=== PATIENT | male | born 1975 | race Caucasian/White ===

== ENCOUNTER 2020-12-17 11:32 | Inpatient (IN) ==
[2020-12-17] MEDS ORDERED: 0.9 % Sodium Chloride 1,000 ML IVC ONE (12:05)
[2020-12-17] MEDS ORDERED: Ipratropium/Albuterol Neb 3 ML IH ONE (12:10)
[2020-12-17] MEDS ORDERED: Ondansetron 4 MG/2 ML VIAL IVP ONE (12:10)
[2020-12-17] MEDS ORDERED: Acetaminophen 325 MG TABLET PO ONE (12:26)
[2020-12-17 12:52] LABS: Hematocrit 43.7 % (37.5-50.1); Hemoglobin 14.4 g/dL (12.9-16.9); Lymphocytes # 0.7 K/mcL (0.6-4.6); Mean Corpuscular Hemoglobin 27.1 pg (28.0-33.3); Mean Corpuscular Volume 82.3 fL (83.0-100.0); Mean Platelet Volume 10.7 fL (9.4-12.4); Platelet Count 159 K/mcL (140-400); Red Blood Count 5.31 M/mcL (4.19-5.50); Red Cell Distribution Width 12.6 % (11.5-14.5); White Blood Count 5.9 K/mcL (4.3-11.1)
[2020-12-17 13:04] LABS: INR 1.3; Prothrombin Time 14.8 Seconds (9.4-12.1)
[2020-12-17 13:07] LABS: Activated Partial Thrombo Time 33.1 Seconds (26.0-36.0)
[2020-12-17 13:10] LABS: Troponin I 0.04 ng/mL (< 0.04)
[2020-12-17 13:15] LABS: Alanine Aminotransferase 32 Units/L (7-52); Albumin 3.5 g/dL (3.5-5.7); Albumin/Globulin Ratio 0.9 (1.1-2.2); Alkaline Phosphatase 53 Units/L (34-104); Aspartate Amino Transferase 43 Units/L (13-39); BUN/Creatinine Ratio 18 (6-26); Bilirubin,Direct 0.3 mg/dL (0.0-0.2); Bilirubin,Indirect 0.6 mg/dL (0.0-1.0); Bilirubin,Total 0.9 mg/dL (0.3-1.0); Blood Urea Nitrogen 19 mg/dL (6-20); Calcium 8.3 mg/dL (8.6-10.3); Carbon Dioxide 23 mEq/L (23-29); Chloride 97 mEq/L (98-107); Globulin 3.8 g/dL (2.4-3.5); Glucose 288 mg/dL (70-105); Lipase 7 Units/L (11-82); Magnesium 2.3 mg/dL (1.6-2.6); Osmolality,Calculated 287 (280-300); Phosphorous 2.6 mg/dL (2.7-4.5); Potassium 4.5 mEq/L (3.5-5.1); Sodium 132 mEq/L (136-145); Total Protein 7.3 g/dL (6.4-8.9); eGFR For African Americans > 60 (> 60); eGFR For Non-African Americans > 60 (> 60)
[2020-12-17] MEDS ORDERED: Isovue-370 500 ML BOTTLE IVP ONE (13:21)
[2020-12-17 13:29] LABS: Monocytes # 0.1 K/mcL (0.0-1.3); Neutrophils # 5.1 K/mcL (1.6-8.9); Platelet Estimate Normal (Normal); Reactive Lymphocytes Present (Not Present)
[2020-12-17 13:32] LABS: Bilirubin,Urine Negative (Negative); Blood,Urine Trace (Negative); Clarity,Urine Clear (Clear); Color,Urine Yellow (Yellow); Glucose,Urine (UA) >=1000 mg/dL (Normal); Granular Casts,Urine Few per lpf (None Seen); Ketones,Urine 60 mg/dL (Negative); Leukocyte Esterase,Urine Negative (Negative); Mucus,Urine Few per lpf (None-Few); Nitrite,Urine Negative (Negative); Protein,Urine 100 mg/dL (Neg-Trace); RBC,Urine 0-3 per hpf (0-3); Specific Gravity,Urine > 1.030 (1.010-1.025); Squamous Epithelial Cell,Urine Few per hpf (None-Few); WBC,Urine 0-3 per hpf (0-3)
[2020-12-17 13:49] LABS: C-Reactive Protein 182 mg/L (Less than 10)
[2020-12-17] MEDS ORDERED: Naloxone 0.4 MG/ML INJ IVP PRN (14:03)
[2020-12-17] MEDS ORDERED: Acetaminophen 325 MG TABLET PO PRN (14:03)
[2020-12-17] MEDS ORDERED: D5% in Water 1,000 ML IVC PRN (15:09)
[2020-12-17] MEDS ORDERED: Dextrose Gel 15 GM/37.5 ML TUBE PO PRN ×2 (15:09)
[2020-12-17] MEDS ORDERED: Remdesivir 200 MG in 0.9 % Sodium Chloride 100 ML IVPB ONE (15:10)
[2020-12-17 16:07] LABS: Estimated Average Glucose 260 mg/dl; Hemoglobin A1C 10.7 %
[2020-12-17] MEDS: Ipratropium 1 PUFF INHALER IH SCH ×2 (16:30→20:50)
[2020-12-17] MEDS: Insulin LISPRO 300 UNITS/3 ML VIAL SUBQ SCH (17:33)
[2020-12-17 20:00] LABS: C-Reactive Protein 201 mg/L (Less than 10); Lactate Dehydrogenase 467 Units/L (140-271); Troponin I < 0.03 ng/mL (< 0.04)
[2020-12-17 20:13] LABS: Ferritin 1369 ng/mL (20-250)
[2020-12-17] MEDS ORDERED: TOCILIZUMAB IVPB ONE (21:00)
[2020-12-17] MEDS ORDERED: SODIUM CHLORIDE 0.9% IVPB ONE (21:00)
[2020-12-17] MEDS ORDERED: Insulin DETEMIR 100 UNIT/ML X5UNITS SUBQ SCH (21:00)
[2020-12-18 02:37] LABS: Basophils % 0.7 %; Hematocrit 41.1 % (37.5-50.1); Immature Granulocytes % 4.1 % (0-4); Lymphocytes # 0.5 K/mcL (0.6-4.6); Mean Corpuscular HGB Conc 34.1 g/dL (31.6-35.5); Mean Corpuscular Hemoglobin 27.8 pg (28.0-33.3); Mean Corpuscular Volume 81.5 fL (83.0-100.0); Mean Platelet Volume 10.3 fL (9.4-12.4); Monocytes # 0.3 K/mcL (0.0-1.3); Monocytes % 6.3 %; Neutrophils # 3.2 K/mcL (1.6-8.9); Platelet Count 156 K/mcL (140-400); Red Blood Count 5.04 M/mcL (4.19-5.50); Red Cell Distribution Width 12.5 % (11.5-14.5); Segmented Neutrophils % 76.9 %; White Blood Count 4.1 K/mcL (4.3-11.1)
[2020-12-18 02:45] LABS: Magnesium 2.5 mg/dL (1.6-2.6); Phosphorous 2.8 mg/dL (2.7-4.5)
[2020-12-18 02:47] LABS: Albumin 3.2 g/dL (3.5-5.7); Albumin/Globulin Ratio 0.8 (1.1-2.2); Bilirubin,Direct 0.2 mg/dL (0.0-0.2); Bilirubin,Indirect 0.4 mg/dL (0.0-1.0); Bilirubin,Total 0.6 mg/dL (0.3-1.0); Globulin 3.9 g/dL (2.4-3.5); Total Protein 7.1 g/dL (6.4-8.9)
[2020-12-18 02:58] LABS: Platelet Estimate Normal (Normal); Reactive Lymphocytes Present (Not Present)
[2020-12-18] MEDS: Ipratropium 1 PUFF INHALER IH SCH ×4 (04:43→22:20)
[2020-12-18] MEDS: Dexamethasone Sodium Phos/PF 10 MG/ML VIAL IVP SCH (08:27)
[2020-12-18] MEDS: Insulin LISPRO 300 UNITS/3 ML VIAL SUBQ SCH ×3 (08:52→18:03)
[2020-12-18] MEDS: Insulin DETEMIR 100 UNIT/ML X5UNITS SUBQ SCH ×2 (08:54→19:59)
[2020-12-18] MEDS ORDERED: Dexamethasone Sodium Phos/PF 10 MG/ML VIAL IVP SCH (09:00)
[2020-12-18 13:08] LABS: BUN/Creatinine Ratio 27 (6-26); Blood Urea Nitrogen 22 mg/dL (6-20); Calcium 8.6 mg/dL (8.6-10.3); Carbon Dioxide 23 mEq/L (23-29); Chloride 104 mEq/L (98-107); Glucose 290 mg/dL (70-105); Osmolality,Calculated 300 (280-300); Potassium 4.1 mEq/L (3.5-5.1); Sodium 138 mEq/L (136-145); eGFR For African Americans > 60 (> 60); eGFR For Non-African Americans > 60 (> 60)
[2020-12-18] MEDS ORDERED: Gadolinium Contrast Agent (WT Based) IV PRN (13:56)
[2020-12-18] MEDS: *HR* Enoxaparin 40 MG/0.4 ML SYRINGE SQ SCH (15:12)
[2020-12-18] MEDS: Remdesivir 100 MG in 0.9 % Sodium Chloride 100 ML IVPB SCH (15:13)
[2020-12-19] MEDS: Ipratropium 1 PUFF INHALER IH SCH ×4 (03:56→21:30)
[2020-12-19] MEDS: *HR* Enoxaparin 40 MG/0.4 ML SYRINGE SQ SCH (05:34)
[2020-12-19 06:47] LABS: Albumin 3.3 g/dL (3.5-5.7); BUN/Creatinine Ratio 27 (6-26); Bilirubin,Direct 0.2 mg/dL (0.0-0.2); Bilirubin,Indirect 0.3 mg/dL (0.0-1.0); Bilirubin,Total 0.5 mg/dL (0.3-1.0); Blood Urea Nitrogen 24 mg/dL (6-20); Calcium 8.3 mg/dL (8.6-10.3); Carbon Dioxide 26 mEq/L (23-29); Chloride 104 mEq/L (98-107); Globulin 3.4 g/dL (2.4-3.5); Glucose 347 mg/dL (70-105); Osmolality,Calculated 304 (280-300); Potassium 4.1 mEq/L (3.5-5.1); Sodium 138 mEq/L (136-145); Total Protein 6.7 g/dL (6.4-8.9); eGFR For African Americans > 60 (> 60); eGFR For Non-African Americans > 60 (> 60)
[2020-12-19] MEDS: Dexamethasone Sodium Phos/PF 10 MG/ML VIAL IVP SCH (09:19)
[2020-12-19] MEDS: Insulin DETEMIR 100 UNIT/ML X5UNITS SUBQ SCH ×2 (09:22→20:04)
[2020-12-19] MEDS: Insulin LISPRO 300 UNITS/3 ML VIAL SUBQ SCH ×2 (09:22→12:50)
[2020-12-19] MEDS: Remdesivir 100 MG in 0.9 % Sodium Chloride 100 ML IVPB SCH (15:45)
[2020-12-20] MEDS: Ipratropium 1 PUFF INHALER IH SCH ×4 (03:33→20:23)
[2020-12-20] MEDS: Insulin LISPRO 300 UNITS/3 ML VIAL SUBQ SCH ×4 (03:38→17:39)
[2020-12-20 04:03] LABS: BUN/Creatinine Ratio 30 (6-26); Blood Urea Nitrogen 25 mg/dL (6-20); Calcium 8.5 mg/dL (8.6-10.3); Carbon Dioxide 24 mEq/L (23-29); Chloride 107 mEq/L (98-107); Glucose 293 mg/dL (70-105); Osmolality,Calculated 303 (280-300); Potassium 3.9 mEq/L (3.5-5.1); Sodium 139 mEq/L (136-145); eGFR For African Americans > 60 (> 60); eGFR For Non-African Americans > 60 (> 60)
[2020-12-20] MEDS: *HR* Enoxaparin 40 MG/0.4 ML SYRINGE SQ SCH (05:52)
[2020-12-20 08:04] LABS: Albumin 3.2 g/dL (3.5-5.7); Bilirubin,Direct 0.1 mg/dL (0.0-0.2); Bilirubin,Indirect 0.5 mg/dL (0.0-1.0); Bilirubin,Total 0.6 mg/dL (0.3-1.0); Globulin 3.1 g/dL (2.4-3.5); Total Protein 6.3 g/dL (6.4-8.9)
[2020-12-20] MEDS: Dexamethasone Sodium Phos/PF 10 MG/ML VIAL IVP SCH (08:15)
[2020-12-20] MEDS: Insulin DETEMIR 100 UNIT/ML X5UNITS SUBQ SCH ×2 (08:15→21:11)
[2020-12-20] MEDS: *HR* LORazepam 2 MG/ML VIAL IVP PRN ×2 (13:13→19:52)
[2020-12-20] MEDS: Remdesivir 100 MG in 0.9 % Sodium Chloride 100 ML IVPB SCH (15:46)
[2020-12-20] MEDS ORDERED: *HR* Heparin 5,000 UNIT/ML VIAL IVP PRN ×2 (16:47)
[2020-12-20] MEDS ORDERED: *HR* Heparin 5,000 UNIT/ML VIAL IVP ONE (16:47)
[2020-12-20 17:54] LABS: Hemoglobin 14.6 g/dL (12.9-16.9); Mean Corpuscular Hemoglobin 27.7 pg (28.0-33.3); Mean Corpuscular Volume 81.4 fL (83.0-100.0); Mean Platelet Volume 9.8 fL (9.4-12.4); Platelet Count 126 K/mcL (140-400); Red Blood Count 5.28 M/mcL (4.19-5.50); Red Cell Distribution Width 12.5 % (11.5-14.5)
[2020-12-20 18:03] LABS: Heparin anti-factor XA UFH 0.07 IU/mL (0.30-0.70); INR 1.4; Prothrombin Time 15.1 Seconds (9.4-12.1)
[2020-12-20] MEDS: Heparin 25,000UNIT/250ML 1/2NS 25,000 UNIT/250 ML IV.SOLN IVC SCH (19:54)
[2020-12-21] MEDS: Insulin LISPRO 300 UNITS/3 ML VIAL SUBQ SCH ×4 (00:04→16:18)
[2020-12-21 03:24] LABS: BUN/Creatinine Ratio 25 (6-26); Blood Urea Nitrogen 21 mg/dL (6-20); Calcium 8.3 mg/dL (8.6-10.3); Carbon Dioxide 25 mEq/L (23-29); Chloride 106 mEq/L (98-107); Glucose 100 mg/dL (70-105); Osmolality,Calculated 295 (280-300); Potassium 3.5 mEq/L (3.5-5.1); Sodium 141 mEq/L (136-145); eGFR For African Americans > 60 (> 60); eGFR For Non-African Americans > 60 (> 60)
[2020-12-21 03:25] LABS: Albumin 3.1 g/dL (3.5-5.7); Albumin/Globulin Ratio 0.9 (1.1-2.2); Bilirubin,Direct 0.2 mg/dL (0.0-0.2); Bilirubin,Indirect 0.6 mg/dL (0.0-1.0); Bilirubin,Total 0.8 mg/dL (0.3-1.0); Globulin 3.4 g/dL (2.4-3.5); Total Protein 6.5 g/dL (6.4-8.9)
[2020-12-21] MEDS: Ipratropium 1 PUFF INHALER IH SCH ×4 (03:47→19:53)
[2020-12-21] MEDS ORDERED: Isovue-370 500 ML BOTTLE IVP ONE (07:44)
[2020-12-21] MEDS: Dexamethasone Sodium Phos/PF 10 MG/ML VIAL IVP SCH (08:05)
[2020-12-21] MEDS: Insulin DETEMIR 100 UNIT/ML X5UNITS SUBQ SCH ×2 (08:06→20:16)
[2020-12-21] MEDS: Ondansetron 4 MG/2 ML VIAL IVP PRN (10:05)
[2020-12-21] MEDS: *HR* LORazepam 2 MG/ML VIAL IVP PRN ×2 (10:24→20:16)
[2020-12-21] MEDS ORDERED: Perflutren Lipid Microsphere 1.3 ML in 0.9 % Sodium Chloride 8.7 ML IVP PRN (14:29)
[2020-12-21] MEDS: Remdesivir 100 MG in 0.9 % Sodium Chloride 100 ML IVPB SCH (15:25)
[2020-12-21 16:12] LABS: Troponin I 0.03 ng/mL (< 0.04)
[2020-12-21] MEDS: Heparin 25,000UNIT/250ML 1/2NS 25,000 UNIT/250 ML IV.SOLN IVC SCH (18:32)
[2020-12-22] MEDS: *HR* LORazepam 2 MG/ML VIAL IVP PRN (03:38)
[2020-12-22] MEDS: Ipratropium 1 PUFF INHALER IH SCH ×4 (03:40→23:00)
[2020-12-22 05:01] LABS: BUN/Creatinine Ratio 26 (6-26); Blood Urea Nitrogen 20 mg/dL (6-20); Calcium 8.2 mg/dL (8.6-10.3); Carbon Dioxide 25 mEq/L (23-29); Chloride 105 mEq/L (98-107); Glucose 81 mg/dL (70-105); Osmolality,Calculated 290 (280-300); Potassium 4.1 mEq/L (3.5-5.1); Sodium 139 mEq/L (136-145); eGFR For African Americans > 60 (> 60); eGFR For Non-African Americans > 60 (> 60)
[2020-12-22 05:05] LABS: Albumin 3.1 g/dL (3.5-5.7); Bilirubin,Direct 0.2 mg/dL (0.0-0.2); Bilirubin,Indirect 0.5 mg/dL (0.0-1.0); Bilirubin,Total 0.7 mg/dL (0.3-1.0); Globulin 3.1 g/dL (2.4-3.5); Total Protein 6.2 g/dL (6.4-8.9)
[2020-12-22 06:48] LABS: Basophils # 0.1 K/mcL (0.0-0.2); Basophils % 0.5 %; Eosinophils # 0.3 K/mcL (0.0-0.6); Eosinophils % 2.2 %; Hemoglobin 15.8 g/dL (12.9-16.9); Immature Granulocytes % 2.2 % (0-4); Lymphocytes # 0.7 K/mcL (0.6-4.6); Lymphocytes % 5.5 %; Mean Corpuscular HGB Conc 33.6 g/dL (31.6-35.5); Mean Corpuscular Hemoglobin 27.5 pg (28.0-33.3); Mean Corpuscular Volume 81.9 fL (83.0-100.0); Mean Platelet Volume 10.6 fL (9.4-12.4); Monocytes # 0.5 K/mcL (0.0-1.3); Monocytes % 4.1 %; Platelet Count 121 K/mcL (140-400); Red Blood Count 5.74 M/mcL (4.19-5.50); Red Cell Distribution Width 12.9 % (11.5-14.5); Segmented Neutrophils % 85.5 %; White Blood Count 12.8 K/mcL (4.3-11.1)
[2020-12-22] MEDS: Insulin LISPRO 300 UNITS/3 ML VIAL SUBQ SCH ×4 (07:59→16:48)
[2020-12-22] MEDS: Insulin DETEMIR 100 UNIT/ML X5UNITS SUBQ SCH ×2 (08:01→21:37)
[2020-12-22] MEDS: Dexamethasone Sodium Phos/PF 10 MG/ML VIAL IVP SCH (08:01)
[2020-12-22] MEDS: Heparin 25,000UNIT/250ML 1/2NS 25,000 UNIT/250 ML IV.SOLN IVC SCH (15:44)
[2020-12-22] MEDS: Ondansetron 4 MG/2 ML VIAL IVP PRN ×2 (17:30→22:03)
[2020-12-23] MEDS: Insulin LISPRO 300 UNITS/3 ML VIAL SUBQ SCH ×5 (00:06→23:29)
[2020-12-23] MEDS: *HR* Dextrose 50 % in Water (Syg) 50 ML SYRINGE IVP PRN (00:15)
[2020-12-23] MEDS: Ipratropium 1 PUFF INHALER IH SCH ×4 (03:48→20:45)
[2020-12-23 05:06] LABS: Basophils % 0.5 %; Immature Granulocytes % 2.7 % (0-4); Mean Corpuscular HGB Conc 33.6 g/dL (31.6-35.5); Mean Corpuscular Hemoglobin 27.5 pg (28.0-33.3); Red Cell Distribution Width 12.9 % (11.5-14.5)
[2020-12-23 05:08] LABS: Basophils # 0.1 K/mcL (0.0-0.2); Eosinophils # 0.4 K/mcL (0.0-0.6); Eosinophils % 2.5 %; Hematocrit 45.6 % (37.5-50.1); Hemoglobin 15.3 g/dL (12.9-16.9); Immature Platelets 7.2 % (1.1-6.1); Lymphocytes # 0.6 K/mcL (0.6-4.6); Lymphocytes % 4.5 %; Mean Corpuscular Volume 81.9 fL (83.0-100.0); Mean Platelet Volume 10.6 fL (9.4-12.4); Monocytes # 0.5 K/mcL (0.0-1.3); Monocytes % 3.6 %; Platelet Count 126 K/mcL (140-400); Red Blood Count 5.57 M/mcL (4.19-5.50); Segmented Neutrophils % 86.2 %; White Blood Count 13.9 K/mcL (4.3-11.1)
[2020-12-23 05:24] LABS: Alanine Aminotransferase 17 Units/L (7-52); Alkaline Phosphatase 106 Units/L (34-104); Aspartate Amino Transferase 28 Units/L (13-39); BUN/Creatinine Ratio 27 (6-26); Bilirubin,Total 0.8 mg/dL (0.3-1.0); Blood Urea Nitrogen 19 mg/dL (6-20); Calcium 8.1 mg/dL (8.6-10.3); Carbon Dioxide 26 mEq/L (23-29); Chloride 107 mEq/L (98-107); Globulin 2.9 g/dL (2.4-3.5); Glucose 79 mg/dL (70-105); Magnesium 2.1 mg/dL (1.6-2.6); Osmolality,Calculated 289 (280-300); Phosphorous 3.2 mg/dL (2.7-4.5); Potassium 4.1 mEq/L (3.5-5.1); Sodium 139 mEq/L (136-145); Total Protein 5.9 g/dL (6.4-8.9); eGFR For African Americans > 60 (> 60); eGFR For Non-African Americans > 60 (> 60)
[2020-12-23] MEDS: *HR* LORazepam 2 MG/ML VIAL IVP PRN (08:30)
[2020-12-23] MEDS: Dexamethasone Sodium Phos/PF 10 MG/ML VIAL IVP SCH (08:31)
[2020-12-23] MEDS: Insulin DETEMIR 100 UNIT/ML X5UNITS SUBQ SCH ×2 (09:16→20:19)
[2020-12-23] MEDS: Dexmedetomidine HCl 400 MCG/100 ML MLS IVC SCH ×2 (12:35→20:25)
[2020-12-23] MEDS: Heparin 25,000UNIT/250ML 1/2NS 25,000 UNIT/250 ML IV.SOLN IVC SCH (13:26)
[2020-12-23] MEDS ORDERED: Dexamethasone Sodium Phos/PF 10 MG/ML VIAL IVP ONE (19:42)
[2020-12-24] MEDS: Ipratropium 1 PUFF INHALER IH SCH ×4 (04:05→21:00)
[2020-12-24] MEDS: Insulin LISPRO 300 UNITS/3 ML VIAL SUBQ SCH ×4 (05:20→23:37)
[2020-12-24 06:04] LABS: Basophils # 0.1 K/mcL (0.0-0.2); Basophils % 0.5 %; Eosinophils % 0.2 %; Hematocrit 48.2 % (37.5-50.1); Hemoglobin 15.7 g/dL (12.9-16.9); Immature Granulocytes % 3.3 % (0-4); Lymphocytes # 0.6 K/mcL (0.6-4.6); Lymphocytes % 3.9 %; Mean Corpuscular HGB Conc 32.6 g/dL (31.6-35.5); Mean Platelet Volume 10.5 fL (9.4-12.4); Monocytes # 0.6 K/mcL (0.0-1.3); Monocytes % 3.7 %; Neutrophils # 13.5 K/mcL (1.6-8.9); Platelet Count 136 K/mcL (140-400); Red Blood Count 5.81 M/mcL (4.19-5.50); Red Cell Distribution Width 13.2 % (11.5-14.5); Segmented Neutrophils % 88.4 %; White Blood Count 15.3 K/mcL (4.3-11.1)
[2020-12-24 06:29] LABS: Alanine Aminotransferase 18 Units/L (7-52); Albumin 3.1 g/dL (3.5-5.7); Albumin/Globulin Ratio 1.1 (1.1-2.2); Alkaline Phosphatase 132 Units/L (34-104); Aspartate Amino Transferase 25 Units/L (13-39); BUN/Creatinine Ratio 39 (6-26); Bilirubin,Total 1.1 mg/dL (0.3-1.0); Blood Urea Nitrogen 30 mg/dL (6-20); Calcium 8.4 mg/dL (8.6-10.3); Carbon Dioxide 25 mEq/L (23-29); Chloride 105 mEq/L (98-107); Globulin 2.9 g/dL (2.4-3.5); Glucose 203 mg/dL (70-105); Magnesium 2.4 mg/dL (1.6-2.6); Osmolality,Calculated 302 (280-300); Phosphorous 4.1 mg/dL (2.7-4.5); Sodium 140 mEq/L (136-145); eGFR For African Americans > 60 (> 60); eGFR For Non-African Americans > 60 (> 60)
[2020-12-24] MEDS: Insulin DETEMIR 100 UNIT/ML X5UNITS SUBQ SCH ×2 (07:36→20:41)
[2020-12-24] MEDS: Dexamethasone Sodium Phos/PF 10 MG/ML VIAL IVP SCH (07:37)
[2020-12-24] MEDS: Dexmedetomidine HCl 400 MCG/100 ML MLS IVC SCH ×2 (12:22→22:07)
[2020-12-24] MEDS: Heparin 25,000UNIT/250ML 1/2NS 25,000 UNIT/250 ML IV.SOLN IVC SCH (15:13)
[2020-12-25] MEDS: Dexmedetomidine HCl 400 MCG/100 ML MLS IVC SCH ×6 (03:16→22:51)
[2020-12-25] MEDS: Ipratropium 1 PUFF INHALER IH SCH ×4 (04:09→19:59)
[2020-12-25] MEDS: Insulin LISPRO 300 UNITS/3 ML VIAL SUBQ SCH ×3 (05:19→18:07)
[2020-12-25 06:16] LABS: Basophils # 0.1 K/mcL (0.0-0.2); Basophils % 0.5 %; Eosinophils # 0.2 K/mcL (0.0-0.6); Eosinophils % 1.2 %; Hematocrit 52.7 % (37.5-50.1); Immature Granulocytes % 2.6 % (0-4); Lymphocytes % 5.3 %; Mean Corpuscular HGB Conc 33.8 g/dL (31.6-35.5); Mean Corpuscular Volume 82.9 fL (83.0-100.0); Mean Platelet Volume 11.7 fL (9.4-12.4); Monocytes # 1.1 K/mcL (0.0-1.3); Monocytes % 5.8 %; Neutrophils # 16.4 K/mcL (1.6-8.9); Platelet Count 165 K/mcL (140-400); Red Blood Count 6.36 M/mcL (4.19-5.50); Red Cell Distribution Width 13.6 % (11.5-14.5); Segmented Neutrophils % 84.6 %; White Blood Count 19.4 K/mcL (4.3-11.1)
[2020-12-25 06:22] LABS: Hemoglobin 17.8 g/dL (12.9-16.9)
[2020-12-25 06:40] LABS: Alanine Aminotransferase 18 Units/L (7-52); Albumin 3.3 g/dL (3.5-5.7); Albumin/Globulin Ratio 1.1 (1.1-2.2); Alkaline Phosphatase 157 Units/L (34-104); Aspartate Amino Transferase 26 Units/L (13-39); BUN/Creatinine Ratio 49 (6-26); Bilirubin,Total 1.3 mg/dL (0.3-1.0); Blood Urea Nitrogen 34 mg/dL (6-20); Calcium 8.5 mg/dL (8.6-10.3); Carbon Dioxide 25 mEq/L (23-29); Chloride 106 mEq/L (98-107); Glucose 105 mg/dL (70-105); Magnesium 2.3 mg/dL (1.6-2.6); Osmolality,Calculated 296 (280-300); Phosphorous 4.1 mg/dL (2.7-4.5); Potassium 4.6 mEq/L (3.5-5.1); Sodium 139 mEq/L (136-145); Total Protein 6.3 g/dL (6.4-8.9); eGFR For African Americans > 60 (> 60); eGFR For Non-African Americans > 60 (> 60)
[2020-12-25] MEDS: Insulin DETEMIR 100 UNIT/ML X5UNITS SUBQ SCH ×2 (07:55→21:33)
[2020-12-25] MEDS: Dexamethasone Sodium Phos/PF 10 MG/ML VIAL IVP SCH (07:58)
[2020-12-25] MEDS: Heparin 25,000UNIT/250ML 1/2NS 25,000 UNIT/250 ML IV.SOLN IVC SCH (11:05)
[2020-12-26] MEDS: Insulin LISPRO 300 UNITS/3 ML VIAL SUBQ SCH ×4 (00:22→17:36)
[2020-12-26] MEDS: Dexmedetomidine HCl 400 MCG/100 ML MLS IVC SCH ×4 (03:27→22:25)
[2020-12-26] MEDS: Ipratropium 1 PUFF INHALER IH SCH ×4 (03:39→20:07)
[2020-12-26] MEDS: Heparin 25,000UNIT/250ML 1/2NS 25,000 UNIT/250 ML IV.SOLN IVC SCH ×2 (04:04→11:12)
[2020-12-26 06:03] LABS: Basophils # 0.1 K/mcL (0.0-0.2); Basophils % 0.7 %; Eosinophils # 0.2 K/mcL (0.0-0.6); Hemoglobin 17.6 g/dL (12.9-16.9); Immature Granulocytes % 1.3 % (0-4); Lymphocytes # 1.1 K/mcL (0.6-4.6); Lymphocytes % 5.2 %; Mean Corpuscular HGB Conc 31.3 g/dL (31.6-35.5); Mean Corpuscular Hemoglobin 27.2 pg (28.0-33.3); Mean Corpuscular Volume 86.9 fL (83.0-100.0); Mean Platelet Volume 10.9 fL (9.4-12.4); Monocytes # 1.3 K/mcL (0.0-1.3); Monocytes % 6.4 %; Neutrophils # 17.4 K/mcL (1.6-8.9); Platelet Count 147 K/mcL (140-400); Red Blood Count 6.48 M/mcL (4.19-5.50); Red Cell Distribution Width 13.8 % (11.5-14.5); Segmented Neutrophils % 85.4 %; White Blood Count 20.4 K/mcL (4.3-11.1)
[2020-12-26 06:04] LABS: Hematocrit 56.3 % (37.5-50.1)
[2020-12-26] MEDS: Ondansetron 4 MG/2 ML VIAL IVP PRN (07:40)
[2020-12-26] MEDS: Dexamethasone Sodium Phos/PF 10 MG/ML VIAL IVP SCH (09:44)
[2020-12-26] MEDS: Furosemide 20 MG/2 ML VIAL IVP SCH (09:45)
[2020-12-26] MEDS: Insulin DETEMIR 100 UNIT/ML X5UNITS SUBQ SCH ×2 (09:45→20:06)
[2020-12-26 10:35] LABS: Alanine Aminotransferase 16 Units/L (7-52); Albumin 2.9 g/dL (3.5-5.7); Alkaline Phosphatase 154 Units/L (34-104); Aspartate Amino Transferase 37 Units/L (13-39); BUN/Creatinine Ratio 52 (6-26); Bilirubin,Total 1.3 mg/dL (0.3-1.0); Blood Urea Nitrogen 39 mg/dL (6-20); Calcium 8.2 mg/dL (8.6-10.3); Carbon Dioxide 14 mEq/L (23-29); Chloride 101 mEq/L (98-107); Glucose 68 mg/dL (70-105); Magnesium 2.4 mg/dL (1.6-2.6); Osmolality,Calculated 280 (280-300); Potassium 4.8 mEq/L (3.5-5.1); Sodium 131 mEq/L (136-145); Total Protein 5.9 g/dL (6.4-8.9); eGFR For African Americans > 60 (> 60); eGFR For Non-African Americans > 60 (> 60)
[2020-12-26] MEDS ORDERED: *HR* Promethazine 25 MG/ML VIAL IM PRN (14:17)
[2020-12-27] MEDS: Insulin LISPRO 300 UNITS/3 ML VIAL SUBQ SCH ×4 (01:38→17:57)
[2020-12-27] MEDS: Dexmedetomidine HCl 400 MCG/100 ML MLS IVC SCH ×4 (02:33→18:46)
[2020-12-27] MEDS: Ipratropium 1 PUFF INHALER IH SCH ×4 (04:02→19:58)
[2020-12-27 05:19] LABS: Alanine Aminotransferase 18 Units/L (7-52); Albumin 3.2 g/dL (3.5-5.7); Albumin/Globulin Ratio 1.1 (1.1-2.2); Alkaline Phosphatase 139 Units/L (34-104); Aspartate Amino Transferase 34 Units/L (13-39); BUN/Creatinine Ratio 56 (6-26); Bilirubin,Total 1.4 mg/dL (0.3-1.0); Blood Urea Nitrogen 43 mg/dL (6-20); Calcium 8.5 mg/dL (8.6-10.3); Carbon Dioxide 25 mEq/L (23-29); Chloride 106 mEq/L (98-107); Globulin 2.8 g/dL (2.4-3.5); Glucose 73 mg/dL (70-105); Magnesium 2.5 mg/dL (1.6-2.6); Osmolality,Calculated 297 (280-300); Phosphorous 4.7 mg/dL (2.7-4.5); Sodium 139 mEq/L (136-145); eGFR For African Americans > 60 (> 60); eGFR For Non-African Americans > 60 (> 60)
[2020-12-27] MEDS: *HR* Dextrose 50 % in Water (Syg) 50 ML SYRINGE IVP PRN (05:50)
[2020-12-27] MEDS: Dexamethasone Sodium Phos/PF 10 MG/ML VIAL IVP SCH (08:26)
[2020-12-27] MEDS: Furosemide 20 MG/2 ML VIAL IVP SCH (08:26)
[2020-12-27] MEDS: Insulin DETEMIR 100 UNIT/ML X5UNITS SUBQ SCH ×2 (08:27→21:13)
[2020-12-27] MEDS: Ondansetron 4 MG/2 ML VIAL IVP PRN (08:28)
[2020-12-27] MEDS: Heparin 25,000UNIT/250ML 1/2NS 25,000 UNIT/250 ML IV.SOLN IVC SCH (09:02)
[2020-12-27] MEDS ORDERED: Metoclopramide 10 MG/2 ML VIAL IVP PRN (09:55)
[2020-12-27] MEDS: *HR* LORazepam 2 MG/ML VIAL IVP PRN (10:54)
[2020-12-28] MEDS: Insulin LISPRO 300 UNITS/3 ML VIAL SUBQ SCH ×4 (00:20→18:24)
[2020-12-28] MEDS: Dexmedetomidine HCl 400 MCG/100 ML MLS IVC SCH ×5 (02:55→21:10)
[2020-12-28] MEDS: Ipratropium 1 PUFF INHALER IH SCH ×5 (03:46→22:21)
[2020-12-28 05:53] LABS: BUN/Creatinine Ratio 57 (6-26); Blood Urea Nitrogen 51 mg/dL (6-20); Calcium 8.5 mg/dL (8.6-10.3); Carbon Dioxide 25 mEq/L (23-29); Chloride 104 mEq/L (98-107); Glucose 196 mg/dL (70-105); Osmolality,Calculated 303 (280-300); Potassium 5.1 mEq/L (3.5-5.1); Sodium 137 mEq/L (136-145); eGFR For African Americans > 60 (> 60); eGFR For Non-African Americans > 60 (> 60)
[2020-12-28] MEDS: Dexamethasone Sodium Phos/PF 10 MG/ML VIAL IVP SCH (08:33)
[2020-12-28] MEDS: Furosemide 20 MG/2 ML VIAL IVP SCH (08:34)
[2020-12-28] MEDS: Insulin DETEMIR 100 UNIT/ML X5UNITS SUBQ SCH ×2 (08:35→22:07)
[2020-12-28 10:38] LABS: Basophils # 0.1 K/mcL (0.0-0.2); Basophils % 0.5 %; Eosinophils # 0.1 K/mcL (0.0-0.6); Eosinophils % 0.3 %; Hemoglobin 17.3 g/dL (12.9-16.9); Lymphocytes # 1.1 K/mcL (0.6-4.6); Lymphocytes % 4.6 %; Mean Corpuscular HGB Conc 31.2 g/dL (31.6-35.5); Mean Corpuscular Volume 86.6 fL (83.0-100.0); Mean Platelet Volume 12.1 fL (9.4-12.4); Monocytes % 3.9 %; Platelet Count 172 K/mcL (140-400); Red Blood Count 6.41 M/mcL (4.19-5.50); Red Cell Distribution Width 14.3 % (11.5-14.5); Segmented Neutrophils % 89.7 %; White Blood Count 24.8 K/mcL (4.3-11.1)
[2020-12-28 11:01] LABS: Hematocrit 55.5 % (37.5-50.1); Neutrophils # 22.3 K/mcL (1.6-8.9)
[2020-12-28] MEDS ORDERED: Lidocaine -MPF 1% 5 ML AMPUL INFILT ONE ×2 (11:09→18:51)
[2020-12-28] MEDS: Heparin 25,000UNIT/250ML 1/2NS 25,000 UNIT/250 ML IV.SOLN IVC SCH (12:21)
[2020-12-28 12:43] LABS: Magnesium 2.6 mg/dL (1.6-2.6); Phosphorous 3.8 mg/dL (2.7-4.5); Triglycerides 375 mg/dL (< 150)
[2020-12-28] MEDS ORDERED: D10% in Water 500 ML IVC PRN ×2 (12:56→18:51)
[2020-12-28] MEDS ORDERED: Isovue-370 500 ML BOTTLE IVP ONE (15:40)
[2020-12-28] MEDS ORDERED: FentaNYL (PF) 1,000 MCG/100 ML IV.SOLN IVC SCH (15:45)
[2020-12-28] MEDS ORDERED: Artificial Tears SOLN 15 ML BOTTLE BOTH EYES PRN ×2 (15:48→18:51)
[2020-12-28] MEDS ORDERED: Artificial Tears SOLN 15 ML BOTTLE BOTH EYES SCH (16:00)
[2020-12-28] MEDS ORDERED: Clinimix E 5%-15% SOLUTION 2,000 ML with MVI, adult with vitamin K 10 ML IVC SCH ×2 (17:00→18:51)
[2020-12-28] MEDS ORDERED: Ampicillin/Sulbactam 3,000 MG in 0.9 % Sodium Chloride Mini Bag 100 ML IVPB SCH (18:00)
[2020-12-28] MEDS ORDERED: *HR* LORazepam 2 MG/ML VIAL IVP PRN (18:51)
[2020-12-28] MEDS ORDERED: Ondansetron 4 MG/2 ML VIAL IVP PRN (18:51)
[2020-12-28] MEDS ORDERED: D5% in Water 1,000 ML IVC PRN (18:51)
[2020-12-28] MEDS ORDERED: Dextrose Gel 15 GM/37.5 ML TUBE PO PRN ×2 (18:51)
[2020-12-28] MEDS ORDERED: Naloxone 0.4 MG/ML INJ IVP PRN (18:51)
[2020-12-28] MEDS ORDERED: Acetaminophen 325 MG TABLET PO PRN (18:51)
[2020-12-28] MEDS ORDERED: Metoclopramide 10 MG/2 ML VIAL IVP PRN (18:51)
[2020-12-28] MEDS ORDERED: *HR* Dextrose 50 % in Water (Syg) 50 ML SYRINGE IVP PRN (18:51)
[2020-12-28] MEDS ORDERED: *HR* Heparin 5,000 UNIT/ML VIAL IVP PRN ×2 (18:51)
[2020-12-28] MEDS ORDERED: *HR* Promethazine 25 MG/ML VIAL IM PRN (18:51)
[2020-12-28] MEDS ORDERED: Heparin 25,000UNIT/250ML 1/2NS 25,000 UNIT/250 ML IV.SOLN IVC SCH (18:51)
[2020-12-28] MEDS: FentaNYL (PF) 1,000 MCG/100 ML IV.SOLN IVC SCH (19:44)
[2020-12-28] MEDS: Artificial Tears SOLN 15 ML BOTTLE BOTH EYES SCH (19:45)
[2020-12-28] MEDS: Chlorhexidine Rinse 15 ML MOUTHWASH MM SCH (19:45)
[2020-12-28] MEDS ORDERED: Chlorhexidine Rinse 15 ML MOUTHWASH MM SCH (21:00)
[2020-12-29] MEDS ORDERED: Insulin LISPRO 300 UNITS/3 ML VIAL SUBQ SCH
[2020-12-29] MEDS: Artificial Tears SOLN 15 ML BOTTLE BOTH EYES SCH ×7 (00:35→19:45)
[2020-12-29] MEDS: Dexmedetomidine HCl 400 MCG/100 ML MLS IVC SCH ×6 (01:30→19:45)
[2020-12-29] MEDS: Ipratropium 1 PUFF INHALER IH SCH ×4 (03:59→21:28)
[2020-12-29 05:22] LABS: BUN/Creatinine Ratio 59 (6-26); Basophils % 0.2 %; Blood Urea Nitrogen 38 mg/dL (6-20); Calcium 8.2 mg/dL (8.6-10.3); Carbon Dioxide 24 mEq/L (23-29); Chloride 103 mEq/L (98-107); Eosinophils % 0.2 %; Glucose 189 mg/dL (70-105); Magnesium 2.4 mg/dL (1.6-2.6); Osmolality,Calculated 294 (280-300); Phosphorous 2.9 mg/dL (2.7-4.5); Potassium 4.4 mEq/L (3.5-5.1); Sodium 135 mEq/L (136-145); eGFR For African Americans > 60 (> 60); eGFR For Non-African Americans > 60 (> 60)
[2020-12-29 05:23] LABS: Basophils # 0.1 K/mcL (0.0-0.2); Eosinophils # 0.1 K/mcL (0.0-0.6); Hemoglobin 15.8 g/dL (12.9-16.9); Immature Granulocytes % 0.8 % (0-4); Lymphocytes # 0.9 K/mcL (0.6-4.6); Lymphocytes % 3.2 %; Mean Corpuscular HGB Conc 32.9 g/dL (31.6-35.5); Mean Corpuscular Hemoglobin 27.4 pg (28.0-33.3); Mean Corpuscular Volume 83.2 fL (83.0-100.0); Mean Platelet Volume 11.8 fL (9.4-12.4); Monocytes # 0.9 K/mcL (0.0-1.3); Monocytes % 3.3 %; Platelet Count 154 K/mcL (140-400); Red Blood Count 5.77 M/mcL (4.19-5.50); Red Cell Distribution Width 13.5 % (11.5-14.5); Segmented Neutrophils % 92.3 %; White Blood Count 27.9 K/mcL (4.3-11.1)
[2020-12-29 05:45] LABS: Neutrophils # 25.8 K/mcL (1.6-8.9)
[2020-12-29 08:10] LABS: Platelet Estimate Normal (Normal)
[2020-12-29] MEDS: Insulin LISPRO 300 UNITS/3 ML VIAL SUBQ SCH ×6 (08:24→20:00)
[2020-12-29] MEDS: Insulin DETEMIR 100 UNIT/ML X5UNITS SUBQ SCH ×2 (08:24→19:43)
[2020-12-29] MEDS: Chlorhexidine Rinse 15 ML MOUTHWASH MM SCH ×2 (08:24→19:39)
[2020-12-29] MEDS ORDERED: Furosemide 40 MG/4 ML VIAL IVP SCH (09:00)
[2020-12-29] MEDS ORDERED: Dexamethasone Sodium Phos/PF 10 MG/ML VIAL IVP SCH ×2 (09:00)
[2020-12-29] MEDS ORDERED: Pantoprazole 40 MG VIAL IVP SCH ×2 (09:00)
[2020-12-29] MEDS ORDERED: Ampicillin/Sulbactam 3,000 MG in 0.9 % Sodium Chloride Mini Bag 100 ML IVPB SCH (12:00)
[2020-12-29] MEDS: FentaNYL (PF) 1,000 MCG/100 ML IV.SOLN IVC SCH ×2 (15:04→17:28)
[2020-12-29] MEDS ORDERED: D10% in Water 500 ML IVC PRN (15:06)
[2020-12-29] MEDS ORDERED: Naloxone 0.4 MG/ML INJ IVP PRN (15:06)
[2020-12-29] MEDS ORDERED: Dextrose Gel 15 GM/37.5 ML TUBE PO PRN ×2 (15:06)
[2020-12-29] MEDS ORDERED: *HR* Heparin 5,000 UNIT/ML VIAL IVP PRN (15:06)
[2020-12-29] MEDS ORDERED: D5% in Water 1,000 ML IVC PRN (15:06)
[2020-12-29] MEDS ORDERED: Acetaminophen 325 MG TABLET PO PRN (15:06)
[2020-12-29] MEDS ORDERED: Clinimix E 5%-15% SOLUTION 2,000 ML with MVI, adult with vitamin K 10 ML IVC SCH ×4 (15:06→17:00)
[2020-12-29] MEDS ORDERED: Artificial Tears SOLN 15 ML BOTTLE BOTH EYES PRN (15:06)
[2020-12-29] MEDS ORDERED: Lidocaine -MPF 1% 5 ML AMPUL INFILT ONE (15:06)
[2020-12-29] MEDS: Ampicillin/Sulbactam 3,000 MG in 0.9 % Sodium Chloride Mini Bag 100 ML IVPB SCH (17:32)
[2020-12-30] MEDS: Ampicillin/Sulbactam 3,000 MG in 0.9 % Sodium Chloride Mini Bag 100 ML IVPB SCH ×5 (00:08→23:51)
[2020-12-30] MEDS: Dexmedetomidine HCl 400 MCG/100 ML MLS IVC SCH ×6 (00:11→21:44)
[2020-12-30] MEDS: Artificial Tears SOLN 15 ML BOTTLE BOTH EYES SCH ×7 (00:16→23:52)
[2020-12-30] MEDS: Insulin LISPRO 300 UNITS/3 ML VIAL SUBQ SCH ×6 (00:29→19:58)
[2020-12-30] MEDS: Ipratropium 1 PUFF INHALER IH SCH ×4 (03:42→21:14)
[2020-12-30 04:35] LABS: Basophils % 0.2 %; Immature Granulocytes % 0.9 % (0-4); Lymphocytes % 3.7 %; Monocytes % 3.8 %
[2020-12-30 04:37] LABS: Basophils # 0.1 K/mcL (0.0-0.2); Eosinophils % 0.6 %; Hematocrit 45.4 % (37.5-50.1); Hemoglobin 15.2 g/dL (12.9-16.9); Lymphocytes # 0.9 K/mcL (0.6-4.6); Mean Corpuscular HGB Conc 33.5 g/dL (31.6-35.5); Mean Corpuscular Hemoglobin 27.8 pg (28.0-33.3); Mean Corpuscular Volume 83.2 fL (83.0-100.0); Mean Platelet Volume 12.1 fL (9.4-12.4); Neutrophils # 23.1 K/mcL (1.6-8.9); Platelet Count 145 K/mcL (140-400); Red Blood Count 5.46 M/mcL (4.19-5.50); Red Cell Distribution Width 13.5 % (11.5-14.5); Segmented Neutrophils % 90.8 %; White Blood Count 25.4 K/mcL (4.3-11.1)
[2020-12-30 04:39] LABS: Eosinophils # 0.2 K/mcL (0.0-0.6)
[2020-12-30 04:49] LABS: BUN/Creatinine Ratio 47 (6-26); Blood Urea Nitrogen 27 mg/dL (6-20); Calcium 8.2 mg/dL (8.6-10.3); Carbon Dioxide 25 mEq/L (23-29); Chloride 103 mEq/L (98-107); Glucose 119 mg/dL (70-105); Magnesium 2.2 mg/dL (1.6-2.6); Osmolality,Calculated 286 (280-300); Phosphorous 2.6 mg/dL (2.7-4.5); Potassium 4.4 mEq/L (3.5-5.1); Sodium 135 mEq/L (136-145); eGFR For African Americans > 60 (> 60); eGFR For Non-African Americans > 60 (> 60)
[2020-12-30 05:01] LABS: Platelet Estimate Normal (Normal)
[2020-12-30] MEDS: Furosemide 40 MG/4 ML VIAL IVP SCH (08:53)
[2020-12-30] MEDS: Insulin DETEMIR 100 UNIT/ML X5UNITS SUBQ SCH ×2 (08:53→19:57)
[2020-12-30] MEDS: Pantoprazole 40 MG VIAL IVP SCH (08:53)
[2020-12-30] MEDS: Dexamethasone Sodium Phos/PF 10 MG/ML VIAL IVP SCH (08:53)
[2020-12-30] MEDS: Chlorhexidine Rinse 15 ML MOUTHWASH MM SCH ×2 (08:54→19:52)
[2020-12-30] MEDS ORDERED: Furosemide 40 MG/4 ML VIAL IVP SCH (09:00)
[2020-12-30] MEDS: Heparin 25,000UNIT/250ML 1/2NS 25,000 UNIT/250 ML IV.SOLN IVC SCH ×2 (09:55→19:52)
[2020-12-30] MEDS: FentaNYL (PF) 1,000 MCG/100 ML IV.SOLN IVC SCH (10:41)
[2020-12-30] MEDS: Ondansetron 4 MG/2 ML VIAL IVP PRN (11:10)
[2020-12-30] MEDS ORDERED: Clinimix E 5%-15% SOLUTION 2,000 ML with MVI, adult with vitamin K 10 ML IVC SCH ×3 (17:00)
[2020-12-31] MEDS: Insulin LISPRO 300 UNITS/3 ML VIAL SUBQ SCH ×6 (00:07→20:50)
[2020-12-31] MEDS: Dexmedetomidine HCl 400 MCG/100 ML MLS IVC SCH ×6 (00:50→20:13)
[2020-12-31] MEDS: Ipratropium 1 PUFF INHALER IH SCH ×4 (03:53→21:35)
[2020-12-31] MEDS: Artificial Tears SOLN 15 ML BOTTLE BOTH EYES SCH ×5 (03:57→20:52)
[2020-12-31 04:58] LABS: Eosinophils % 0.5 %
[2020-12-31 05:00] LABS: Basophils % 0.1 %; Eosinophils # 0.1 K/mcL (0.0-0.6); Hemoglobin 13.4 g/dL (12.9-16.9); Immature Platelets 10.2 % (1.1-6.1); Lymphocytes # 0.8 K/mcL (0.6-4.6); Lymphocytes % 4.2 %; Mean Corpuscular HGB Conc 32.7 g/dL (31.6-35.5); Mean Corpuscular Hemoglobin 27.1 pg (28.0-33.3); Mean Platelet Volume 11.7 fL (9.4-12.4); Monocytes % 4.9 %; Neutrophils # 17.8 K/mcL (1.6-8.9); Platelet Count 106 K/mcL (140-400); Red Blood Count 4.94 M/mcL (4.19-5.50); Red Cell Distribution Width 13.5 % (11.5-14.5); Segmented Neutrophils % 89.3 %; White Blood Count 19.9 K/mcL (4.3-11.1)
[2020-12-31 05:17] LABS: BUN/Creatinine Ratio 45 (6-26); Blood Urea Nitrogen 25 mg/dL (6-20); Calcium 7.9 mg/dL (8.6-10.3); Carbon Dioxide 27 mEq/L (23-29); Chloride 102 mEq/L (98-107); Glucose 175 mg/dL (70-105); Magnesium 1.9 mg/dL (1.6-2.6); Osmolality,Calculated 287 (280-300); Phosphorous 2.5 mg/dL (2.7-4.5); Potassium 4.5 mEq/L (3.5-5.1); Sodium 134 mEq/L (136-145); eGFR For African Americans > 60 (> 60); eGFR For Non-African Americans > 60 (> 60)
[2020-12-31] MEDS: Ampicillin/Sulbactam 3,000 MG in 0.9 % Sodium Chloride Mini Bag 100 ML IVPB SCH ×3 (05:17→20:05)
[2020-12-31] MEDS: Pantoprazole 40 MG VIAL IVP SCH (09:29)
[2020-12-31] MEDS: Furosemide 40 MG/4 ML VIAL IVP SCH (09:29)
[2020-12-31] MEDS: Chlorhexidine Rinse 15 ML MOUTHWASH MM SCH ×2 (09:29→20:06)
[2020-12-31] MEDS: Dexamethasone Sodium Phos/PF 10 MG/ML VIAL IVP SCH (09:29)
[2020-12-31] MEDS: Insulin DETEMIR 100 UNIT/ML X5UNITS SUBQ SCH ×2 (09:30→20:52)
[2020-12-31] MEDS: Heparin 25,000UNIT/250ML 1/2NS 25,000 UNIT/250 ML IV.SOLN IVC SCH (09:34)
[2020-12-31] MEDS ORDERED: Furosemide 40 MG/4 ML VIAL IVP ONE (10:24)
[2020-12-31] MEDS: *HR* Heparin 5,000 UNIT/ML VIAL IVP PRN (14:34)
[2020-12-31] MEDS ORDERED: Clinimix E 5%-15% SOLUTION 2,000 ML with MVI, adult with vitamin K 10 ML IVC SCH (17:00)
[2021-01-01] MEDS: Ampicillin/Sulbactam 3,000 MG in 0.9 % Sodium Chloride Mini Bag 100 ML IVPB SCH ×5 (00:43→23:20)
[2021-01-01] MEDS: Artificial Tears SOLN 15 ML BOTTLE BOTH EYES SCH ×7 (00:45→23:48)
[2021-01-01] MEDS: Dexmedetomidine HCl 400 MCG/100 ML MLS IVC SCH ×6 (00:47→22:36)
[2021-01-01] MEDS: Insulin LISPRO 300 UNITS/3 ML VIAL SUBQ SCH ×6 (01:08→23:46)
[2021-01-01] MEDS: Ipratropium 1 PUFF INHALER IH SCH ×4 (04:22→21:14)
[2021-01-01] MEDS: Heparin 25,000UNIT/250ML 1/2NS 25,000 UNIT/250 ML IV.SOLN IVC SCH ×2 (04:30→21:15)
[2021-01-01 06:36] LABS: Basophils % 0.2 %; Eosinophils # 0.1 K/mcL (0.0-0.6); Eosinophils % 0.6 %; Hematocrit 39.7 % (37.5-50.1); Immature Granulocytes % 1.1 % (0-4); Immature Platelets 11.8 % (1.1-6.1); Lymphocytes # 0.8 K/mcL (0.6-4.6); Lymphocytes % 4.3 %; Mean Corpuscular HGB Conc 32.7 g/dL (31.6-35.5); Mean Corpuscular Volume 85.4 fL (83.0-100.0); Mean Platelet Volume 12.7 fL (9.4-12.4); Monocytes # 1.1 K/mcL (0.0-1.3); Red Blood Count 4.65 M/mcL (4.19-5.50); Red Cell Distribution Width 13.8 % (11.5-14.5); Segmented Neutrophils % 87.8 %; White Blood Count 17.7 K/mcL (4.3-11.1)
[2021-01-01 06:49] LABS: BUN/Creatinine Ratio 41 (6-26); Blood Urea Nitrogen 23 mg/dL (6-20); Carbon Dioxide 26 mEq/L (23-29); Chloride 96 mEq/L (98-107); Glucose 491 mg/dL (70-105); Osmolality,Calculated 293 (280-300); Phosphorous 3.6 mg/dL (2.7-4.5); Potassium 4.7 mEq/L (3.5-5.1); Sodium 129 mEq/L (136-145); eGFR For African Americans > 60 (> 60); eGFR For Non-African Americans > 60 (> 60)
[2021-01-01 07:02] LABS: Neutrophils # 15.5 K/mcL (1.6-8.9); Platelet Count 95 K/mcL (140-400)
[2021-01-01 07:03] LABS: Platelet Estimate Slight Decrease (Normal)
[2021-01-01] MEDS: Chlorhexidine Rinse 15 ML MOUTHWASH MM SCH ×2 (07:46→20:57)
[2021-01-01] MEDS: Pantoprazole 40 MG VIAL IVP SCH (07:46)
[2021-01-01] MEDS: Insulin DETEMIR 100 UNIT/ML X5UNITS SUBQ SCH ×2 (07:46→20:57)
[2021-01-01] MEDS: Dexamethasone Sodium Phos/PF 10 MG/ML VIAL IVP SCH (07:46)
[2021-01-01] MEDS: Furosemide 40 MG/4 ML VIAL IVP SCH (07:46)
[2021-01-01] MEDS ORDERED: Insulin LISPRO 300 UNITS/3 ML VIAL SUBQ SCH (12:00)
[2021-01-01] MEDS ORDERED: Clinimix E 5%-15% SOLUTION 2,000 ML with MVI, adult with vitamin K 10 ML IVC SCH (17:00)
[2021-01-02] MEDS: Dexmedetomidine HCl 400 MCG/100 ML MLS IVC SCH ×5 (02:40→20:46)
[2021-01-02 03:18] LABS: Eosinophils % 0.4 %; Hematocrit 39.2 % (37.5-50.1); Mean Corpuscular HGB Conc 33.2 g/dL (31.6-35.5)
[2021-01-02 03:20] LABS: Basophils % 0.2 %; Eosinophils # 0.1 K/mcL (0.0-0.6); Immature Granulocytes % 1.3 % (0-4); Immature Platelets 11.1 % (1.1-6.1); Lymphocytes # 0.9 K/mcL (0.6-4.6); Lymphocytes % 4.7 %; Mean Corpuscular Hemoglobin 27.7 pg (28.0-33.3); Mean Corpuscular Volume 83.4 fL (83.0-100.0); Monocytes # 1.2 K/mcL (0.0-1.3); Monocytes % 6.3 %; Neutrophils # 16.3 K/mcL (1.6-8.9); Red Cell Distribution Width 13.7 % (11.5-14.5); Segmented Neutrophils % 87.1 %; White Blood Count 18.7 K/mcL (4.3-11.1)
[2021-01-02] MEDS: Ipratropium 1 PUFF INHALER IH SCH ×4 (03:26→20:12)
[2021-01-02 03:28] LABS: Platelet Count 83 K/mcL (140-400)
[2021-01-02 03:32] LABS: Alanine Aminotransferase 23 Units/L (7-52); Albumin 2.6 g/dL (3.5-5.7); Albumin/Globulin Ratio 0.9 (1.1-2.2); Alkaline Phosphatase 85 Units/L (34-104); Aspartate Amino Transferase 23 Units/L (13-39); BUN/Creatinine Ratio 46 (6-26); Blood Urea Nitrogen 21 mg/dL (6-20); Calcium 8.1 mg/dL (8.6-10.3); Carbon Dioxide 28 mEq/L (23-29); Chloride 99 mEq/L (98-107); Globulin 2.9 g/dL (2.4-3.5); Glucose 186 mg/dL (70-105); Magnesium 1.8 mg/dL (1.6-2.6); Osmolality,Calculated 284 (280-300); Phosphorous 2.8 mg/dL (2.7-4.5); Potassium 4.4 mEq/L (3.5-5.1); Sodium 133 mEq/L (136-145); Total Protein 5.5 g/dL (6.4-8.9); eGFR For African Americans > 60 (> 60); eGFR For Non-African Americans > 60 (> 60)
[2021-01-02] MEDS: Insulin LISPRO 300 UNITS/3 ML VIAL SUBQ SCH ×6 (03:46→23:44)
[2021-01-02] MEDS: Artificial Tears SOLN 15 ML BOTTLE BOTH EYES SCH ×6 (03:49→23:51)
[2021-01-02] MEDS: Ampicillin/Sulbactam 3,000 MG in 0.9 % Sodium Chloride Mini Bag 100 ML IVPB SCH ×4 (05:23→23:38)
[2021-01-02] MEDS: Chlorhexidine Rinse 15 ML MOUTHWASH MM SCH ×2 (09:31→19:37)
[2021-01-02] MEDS: Furosemide 40 MG/4 ML VIAL IVP SCH (09:31)
[2021-01-02] MEDS: Dexamethasone Sodium Phos/PF 10 MG/ML VIAL IVP SCH (09:31)
[2021-01-02] MEDS: Pantoprazole 40 MG VIAL IVP SCH (09:31)
[2021-01-02] MEDS: Insulin DETEMIR 100 UNIT/ML X5UNITS SUBQ SCH ×2 (09:32→19:37)
[2021-01-02] MEDS: Heparin 25,000UNIT/250ML 1/2NS 25,000 UNIT/250 ML IV.SOLN IVC SCH (11:57)
[2021-01-02] MEDS ORDERED: Clinimix E 5%-15% SOLUTION 2,000 ML with MVI, adult with vitamin K 10 ML IVC SCH (17:00)
[2021-01-03] MEDS: Dexmedetomidine HCl 400 MCG/100 ML MLS IVC SCH ×4 (01:28→19:50)
[2021-01-03] MEDS: Heparin 25,000UNIT/250ML 1/2NS 25,000 UNIT/250 ML IV.SOLN IVC SCH ×2 (01:30→18:35)
[2021-01-03] MEDS: Ipratropium 1 PUFF INHALER IH SCH ×3 (03:40→16:38)
[2021-01-03] MEDS: Artificial Tears SOLN 15 ML BOTTLE BOTH EYES SCH ×6 (03:53→23:54)
[2021-01-03] MEDS: Ampicillin/Sulbactam 3,000 MG in 0.9 % Sodium Chloride Mini Bag 100 ML IVPB SCH ×4 (04:20→23:50)
[2021-01-03] MEDS: Insulin LISPRO 300 UNITS/3 ML VIAL SUBQ SCH ×6 (04:21→23:54)
[2021-01-03 07:15] LABS: Basophils # 0.1 K/mcL (0.0-0.2); Basophils % 0.4 %; Eosinophils # 0.4 K/mcL (0.0-0.6); Hematocrit 39.7 % (37.5-50.1); Hemoglobin 13.4 g/dL (12.9-16.9); Immature Granulocytes % 2.3 % (0-4); Immature Platelets 10.8 % (1.1-6.1); Lymphocytes # 1.3 K/mcL (0.6-4.6); Lymphocytes % 6.7 %; Mean Corpuscular HGB Conc 33.8 g/dL (31.6-35.5); Mean Corpuscular Hemoglobin 27.9 pg (28.0-33.3); Mean Corpuscular Volume 82.7 fL (83.0-100.0); Mean Platelet Volume 12.4 fL (9.4-12.4); Monocytes # 1.2 K/mcL (0.0-1.3); Neutrophils # 15.9 K/mcL (1.6-8.9); Red Cell Distribution Width 13.9 % (11.5-14.5); Segmented Neutrophils % 82.6 %; White Blood Count 19.2 K/mcL (4.3-11.1)
[2021-01-03 07:19] LABS: Platelet Count 70 K/mcL (140-400)
[2021-01-03 07:34] LABS: Alanine Aminotransferase 34 Units/L (7-52); Albumin 2.7 g/dL (3.5-5.7); Alkaline Phosphatase 104 Units/L (34-104); Aspartate Amino Transferase 23 Units/L (13-39); BUN/Creatinine Ratio 48 (6-26); Bilirubin,Total 1.2 mg/dL (0.3-1.0); Blood Urea Nitrogen 23 mg/dL (6-20); Calcium 8.3 mg/dL (8.6-10.3); Carbon Dioxide 27 mEq/L (23-29); Chloride 97 mEq/L (98-107); Globulin 2.8 g/dL (2.4-3.5); Glucose 162 mg/dL (70-105); Magnesium 1.8 mg/dL (1.6-2.6); Osmolality,Calculated 279 (280-300); Phosphorous 3.2 mg/dL (2.7-4.5); Potassium 4.4 mEq/L (3.5-5.1); Sodium 131 mEq/L (136-145); Total Protein 5.5 g/dL (6.4-8.9); Triglycerides 197 mg/dL (< 150); eGFR For African Americans > 60 (> 60); eGFR For Non-African Americans > 60 (> 60)
[2021-01-03] MEDS: Furosemide 40 MG/4 ML VIAL IVP SCH (08:03)
[2021-01-03] MEDS: Pantoprazole 40 MG VIAL IVP SCH (08:03)
[2021-01-03] MEDS: Insulin DETEMIR 100 UNIT/ML X5UNITS SUBQ SCH ×2 (08:03→21:19)
[2021-01-03] MEDS: Dexamethasone Sodium Phos/PF 10 MG/ML VIAL IVP SCH (08:03)
[2021-01-03] MEDS: Chlorhexidine Rinse 15 ML MOUTHWASH MM SCH ×2 (12:50→21:19)
[2021-01-03] MEDS: Acetylcysteine 10% 2 ML INHSOL IH SCH ×3 (16:33→22:43)
[2021-01-03] MEDS: Ipratropium/Albuterol Neb 3 ML IH SCH ×3 (16:33→22:42)
[2021-01-03] MEDS ORDERED: Clinimix E 5%-15% SOLUTION 2,000 ML with MVI, adult with vitamin K 10 ML, ZN/CU/MN/SE... IVC SCH (17:00)
[2021-01-04] MEDS: Dexmedetomidine HCl 400 MCG/100 ML MLS IVC SCH ×4 (01:52→21:58)
[2021-01-04] MEDS: Ipratropium/Albuterol Neb 3 ML IH SCH ×5 (03:24→21:35)
[2021-01-04] MEDS: Acetylcysteine 10% 2 ML INHSOL IH SCH ×5 (03:26→21:35)
[2021-01-04] MEDS: *HR* LORazepam 2 MG/ML VIAL IVP PRN ×2 (03:57→15:49)
[2021-01-04] MEDS: Insulin LISPRO 300 UNITS/3 ML VIAL SUBQ SCH ×5 (04:10→21:58)
[2021-01-04] MEDS: Artificial Tears SOLN 15 ML BOTTLE BOTH EYES SCH ×3 (04:10→11:46)
[2021-01-04 05:07] LABS: Basophils % 0.4 %; Mean Corpuscular HGB Conc 33.4 g/dL (31.6-35.5); Mean Corpuscular Hemoglobin 27.7 pg (28.0-33.3)
[2021-01-04 05:09] LABS: Basophils # 0.1 K/mcL (0.0-0.2); Eosinophils # 0.2 K/mcL (0.0-0.6); Eosinophils % 1.1 %; Hematocrit 40.4 % (37.5-50.1); Hemoglobin 13.5 g/dL (12.9-16.9); Immature Granulocytes % 3.1 % (0-4); Immature Platelets 13.8 % (1.1-6.1); Lymphocytes # 1.6 K/mcL (0.6-4.6); Lymphocytes % 7.6 %; Mean Corpuscular Volume 82.8 fL (83.0-100.0); Monocytes # 1.1 K/mcL (0.0-1.3); Monocytes % 5.4 %; Neutrophils # 17.3 K/mcL (1.6-8.9); Red Blood Count 4.88 M/mcL (4.19-5.50); Segmented Neutrophils % 82.4 %
[2021-01-04 05:16] LABS: Alanine Aminotransferase 71 Units/L (7-52); Albumin 2.6 g/dL (3.5-5.7); Albumin/Globulin Ratio 0.8 (1.1-2.2); Alkaline Phosphatase 131 Units/L (34-104); Aspartate Amino Transferase 32 Units/L (13-39); BUN/Creatinine Ratio 41 (6-26); Bilirubin,Total 1.5 mg/dL (0.3-1.0); Blood Urea Nitrogen 24 mg/dL (6-20); Calcium 8.3 mg/dL (8.6-10.3); Carbon Dioxide 27 mEq/L (23-29); Chloride 92 mEq/L (98-107); Globulin 3.3 g/dL (2.4-3.5); Glucose 329 mg/dL (70-105); Magnesium 1.6 mg/dL (1.6-2.6); Osmolality,Calculated 279 (280-300); Potassium 4.1 mEq/L (3.5-5.1); Sodium 126 mEq/L (136-145); Total Protein 5.9 g/dL (6.4-8.9); eGFR For African Americans > 60 (> 60); eGFR For Non-African Americans > 60 (> 60)
[2021-01-04 05:17] LABS: Platelet Count 59 K/mcL (140-400)
[2021-01-04] MEDS: Ampicillin/Sulbactam 3,000 MG in 0.9 % Sodium Chloride Mini Bag 100 ML IVPB SCH ×4 (06:04→23:52)
[2021-01-04] MEDS: Pantoprazole 40 MG VIAL IVP SCH (09:43)
[2021-01-04] MEDS: Furosemide 40 MG/4 ML VIAL IVP SCH (09:45)
[2021-01-04] MEDS: Dexamethasone Sodium Phos/PF 10 MG/ML VIAL IVP SCH (09:45)
[2021-01-04] MEDS: Insulin DETEMIR 100 UNIT/ML X5UNITS SUBQ SCH ×2 (09:46→22:44)
[2021-01-04] MEDS: Chlorhexidine Rinse 15 ML MOUTHWASH MM SCH ×2 (09:46→19:47)
[2021-01-04] MEDS: Heparin 25,000UNIT/250ML 1/2NS 25,000 UNIT/250 ML IV.SOLN IVC SCH (10:06)
[2021-01-04 15:30] LABS: ABG Base Excess -1 mEq/L (-2 to 3); ABG HCO3 23 mEq/L (21-27); ABG Oxygen Saturation 88 % (95-98); ABG PCO2 38 mmHg (35-45); ABG PO2 54 mmHg (85-104); ABG TCO2 24 mEq/L (20-26)
[2021-01-05] MEDS: Acetylcysteine 10% 2 ML INHSOL IH SCH ×4 (03:45→21:49)
[2021-01-05] MEDS: Ipratropium/Albuterol Neb 3 ML IH SCH ×4 (03:45→21:49)
[2021-01-05 04:26] LABS: Basophils # 0.1 K/mcL (0.0-0.2); Basophils % 0.5 %; Eosinophils # 0.4 K/mcL (0.0-0.6); Eosinophils % 1.8 %; Hematocrit 41.1 % (37.5-50.1); Hemoglobin 13.5 g/dL (12.9-16.9); Immature Granulocytes % 3.3 % (0-4); Immature Platelets 13.4 % (1.1-6.1); Lymphocytes % 9.5 %; Mean Corpuscular HGB Conc 32.8 g/dL (31.6-35.5); Mean Corpuscular Volume 82.2 fL (83.0-100.0); Mean Platelet Volume 12.4 fL (9.4-12.4); Monocytes % 4.9 %; Neutrophils # 16.7 K/mcL (1.6-8.9); Red Cell Distribution Width 14.5 % (11.5-14.5); White Blood Count 20.9 K/mcL (4.3-11.1)
[2021-01-05 04:27] LABS: Platelet Count 58 K/mcL (140-400)
[2021-01-05 04:42] LABS: BUN/Creatinine Ratio 47 (6-26); Blood Urea Nitrogen 29 mg/dL (6-20); Calcium 8.4 mg/dL (8.6-10.3); Carbon Dioxide 29 mEq/L (23-29); Chloride 98 mEq/L (98-107); Glucose 73 mg/dL (70-105); Osmolality,Calculated 280 (280-300); Potassium 4.5 mEq/L (3.5-5.1); Sodium 133 mEq/L (136-145); eGFR For African Americans > 60 (> 60); eGFR For Non-African Americans > 60 (> 60)
[2021-01-05] MEDS: Ampicillin/Sulbactam 3,000 MG in 0.9 % Sodium Chloride Mini Bag 100 ML IVPB SCH (06:16)
[2021-01-05] MEDS: Insulin LISPRO 300 UNITS/3 ML VIAL SUBQ SCH ×4 (07:22→20:58)
[2021-01-05] MEDS: *HR* Dextrose 50 % in Water (Syg) 50 ML SYRINGE IVP PRN (07:31)
[2021-01-05] MEDS: Pantoprazole 40 MG VIAL IVP SCH (08:48)
[2021-01-05] MEDS: Furosemide 40 MG/4 ML VIAL IVP SCH (08:49)
[2021-01-05] MEDS: Dexamethasone Sodium Phos/PF 10 MG/ML VIAL IVP SCH (08:49)
[2021-01-05] MEDS: Chlorhexidine Rinse 15 ML MOUTHWASH MM SCH ×2 (08:49→19:51)
[2021-01-05] MEDS: Insulin DETEMIR 100 UNIT/ML X5UNITS SUBQ SCH ×2 (09:30→21:39)
[2021-01-05] MEDS: Dexmedetomidine HCl 400 MCG/100 ML MLS IVC SCH ×2 (10:14→17:35)
[2021-01-05] MEDS: Heparin 25,000UNIT/250ML 1/2NS 25,000 UNIT/250 ML IV.SOLN IVC SCH (21:38)
[2021-01-05] MEDS: *HR* Heparin 5,000 UNIT/ML VIAL IVP PRN (21:48)
[2021-01-06] MEDS: Acetylcysteine 10% 2 ML INHSOL IH SCH ×4 (03:47→19:50)
[2021-01-06] MEDS: Ipratropium/Albuterol Neb 3 ML IH SCH ×4 (03:47→19:50)
[2021-01-06] MEDS: Dexmedetomidine HCl 400 MCG/100 ML MLS IVC SCH (04:53)
[2021-01-06] MEDS: *HR* Promethazine 25 MG/ML VIAL IM PRN ×2 (05:02→20:07)
[2021-01-06 05:44] LABS: Hemoglobin 13.2 g/dL (12.9-16.9); Mean Corpuscular Hemoglobin 27.2 pg (28.0-33.3); Red Blood Count 4.86 M/mcL (4.19-5.50); Red Cell Distribution Width 14.5 % (11.5-14.5)
[2021-01-06 05:46] LABS: Basophils # 0.1 K/mcL (0.0-0.2); Basophils % 0.5 %; Eosinophils # 0.7 K/mcL (0.0-0.6); Eosinophils % 3.3 %; Hematocrit 40.5 % (37.5-50.1); Immature Granulocytes % 2.8 % (0-4); Immature Platelets 14.2 % (1.1-6.1); Lymphocytes # 1.7 K/mcL (0.6-4.6); Lymphocytes % 8.4 %; Mean Corpuscular HGB Conc 32.6 g/dL (31.6-35.5); Mean Corpuscular Volume 83.3 fL (83.0-100.0); Mean Platelet Volume 12.3 fL (9.4-12.4); Monocytes # 0.8 K/mcL (0.0-1.3); Monocytes % 4.2 %; Neutrophils # 16.1 K/mcL (1.6-8.9); Platelet Count 74 K/mcL (140-400); Segmented Neutrophils % 80.8 %; White Blood Count 19.9 K/mcL (4.3-11.1)
[2021-01-06 06:04] LABS: Alanine Aminotransferase 49 Units/L (7-52); Albumin 2.8 g/dL (3.5-5.7); Albumin/Globulin Ratio 0.8 (1.1-2.2); Alkaline Phosphatase 114 Units/L (34-104); Aspartate Amino Transferase 19 Units/L (13-39); BUN/Creatinine Ratio 39 (6-26); Bilirubin,Total 1.3 mg/dL (0.3-1.0); Blood Urea Nitrogen 30 mg/dL (6-20); Calcium 8.4 mg/dL (8.6-10.3); Carbon Dioxide 30 mEq/L (23-29); Chloride 96 mEq/L (98-107); Globulin 3.6 g/dL (2.4-3.5); Glucose 144 mg/dL (70-105); Magnesium 1.8 mg/dL (1.6-2.6); Osmolality,Calculated 285 (280-300); Phosphorous 3.2 mg/dL (2.7-4.5); Potassium 4.5 mEq/L (3.5-5.1); Sodium 133 mEq/L (136-145); Total Protein 6.4 g/dL (6.4-8.9); eGFR For African Americans > 60 (> 60); eGFR For Non-African Americans > 60 (> 60)
[2021-01-06] MEDS: Insulin LISPRO 300 UNITS/3 ML VIAL SUBQ SCH ×4 (08:18→20:08)
[2021-01-06] MEDS: Dexamethasone Sodium Phos/PF 10 MG/ML VIAL IVP SCH (09:56)
[2021-01-06] MEDS: Furosemide 40 MG/4 ML VIAL IVP SCH (09:56)
[2021-01-06] MEDS: Chlorhexidine Rinse 15 ML MOUTHWASH MM SCH ×2 (09:57→20:07)
[2021-01-06] MEDS: Pantoprazole 40 MG VIAL IVP SCH (09:57)
[2021-01-06] MEDS: Insulin DETEMIR 100 UNIT/ML X5UNITS SUBQ SCH ×2 (09:57→20:08)
[2021-01-06] MEDS: Ondansetron 4 MG/2 ML VIAL IVP PRN (11:46)
[2021-01-06] MEDS: Heparin 25,000UNIT/250ML 1/2NS 25,000 UNIT/250 ML IV.SOLN IVC SCH (16:31)
[2021-01-06] MEDS: Metoclopramide 10 MG/2 ML VIAL IVP PRN (16:48)
[2021-01-06] MEDS: *HR* Heparin 5,000 UNIT/ML VIAL IVP PRN (21:58)
[2021-01-07] MEDS: Dexmedetomidine HCl 400 MCG/100 ML MLS IVC SCH ×3 (00:11→22:08)
[2021-01-07] MEDS: Ipratropium/Albuterol Neb 3 ML IH SCH ×4 (03:40→20:08)
[2021-01-07] MEDS: Acetylcysteine 10% 2 ML INHSOL IH SCH ×4 (03:40→20:08)
[2021-01-07] MEDS: Heparin 25,000UNIT/250ML 1/2NS 25,000 UNIT/250 ML IV.SOLN IVC SCH ×2 (04:46→17:42)
[2021-01-07 05:03] LABS: Basophils # 0.1 K/mcL (0.0-0.2); Basophils % 0.5 %; Eosinophils # 0.3 K/mcL (0.0-0.6); Eosinophils % 1.2 %; Hematocrit 40.4 % (37.5-50.1); Hemoglobin 13.4 g/dL (12.9-16.9); Immature Granulocytes % 2.3 % (0-4); Lymphocytes # 1.7 K/mcL (0.6-4.6); Mean Corpuscular HGB Conc 33.2 g/dL (31.6-35.5); Mean Corpuscular Hemoglobin 27.5 pg (28.0-33.3); Mean Corpuscular Volume 82.8 fL (83.0-100.0); Mean Platelet Volume 11.9 fL (9.4-12.4); Monocytes % 4.4 %; Neutrophils # 18.1 K/mcL (1.6-8.9); Platelet Count 103 K/mcL (140-400); Red Blood Count 4.88 M/mcL (4.19-5.50); Red Cell Distribution Width 14.5 % (11.5-14.5); Segmented Neutrophils % 83.6 %; White Blood Count 21.6 K/mcL (4.3-11.1)
[2021-01-07 05:20] LABS: Alanine Aminotransferase 35 Units/L (7-52); Albumin 2.8 g/dL (3.5-5.7); Albumin/Globulin Ratio 0.7 (1.1-2.2); Alkaline Phosphatase 103 Units/L (34-104); Aspartate Amino Transferase 18 Units/L (13-39); BUN/Creatinine Ratio 33 (6-26); Bilirubin,Total 1.2 mg/dL (0.3-1.0); Blood Urea Nitrogen 30 mg/dL (6-20); Calcium 8.5 mg/dL (8.6-10.3); Carbon Dioxide 31 mEq/L (23-29); Chloride 97 mEq/L (98-107); Globulin 3.9 g/dL (2.4-3.5); Glucose 74 mg/dL (70-105); Osmolality,Calculated 283 (280-300); Phosphorous 3.5 mg/dL (2.7-4.5); Potassium 4.3 mEq/L (3.5-5.1); Sodium 134 mEq/L (136-145); Total Protein 6.7 g/dL (6.4-8.9); eGFR For African Americans > 60 (> 60); eGFR For Non-African Americans > 60 (> 60)
[2021-01-07] MEDS: Insulin LISPRO 300 UNITS/3 ML VIAL SUBQ SCH ×4 (08:22→20:01)
[2021-01-07] MEDS: Metoclopramide 10 MG/2 ML VIAL IVP PRN (08:31)
[2021-01-07] MEDS: Dexamethasone Sodium Phos/PF 10 MG/ML VIAL IVP SCH (08:35)
[2021-01-07] MEDS: Furosemide 40 MG/4 ML VIAL IVP SCH (08:36)
[2021-01-07] MEDS: Pantoprazole 40 MG VIAL IVP SCH (08:36)
[2021-01-07] MEDS: Chlorhexidine Rinse 15 ML MOUTHWASH MM SCH ×2 (08:36→20:01)
[2021-01-07] MEDS: Insulin DETEMIR 100 UNIT/ML X5UNITS SUBQ SCH ×2 (08:37→20:01)
[2021-01-07] MEDS: Ondansetron 4 MG/2 ML VIAL IVP PRN ×2 (13:18→21:29)
[2021-01-08] MEDS: Acetylcysteine 10% 2 ML INHSOL IH SCH ×4 (04:12→20:36)
[2021-01-08] MEDS: Ipratropium/Albuterol Neb 3 ML IH SCH ×4 (04:12→20:35)
[2021-01-08 05:18] LABS: Basophils # 0.1 K/mcL (0.0-0.2); Basophils % 0.4 %; Eosinophils # 0.4 K/mcL (0.0-0.6); Eosinophils % 2.4 %; Hematocrit 39.3 % (37.5-50.1); Hemoglobin 12.7 g/dL (12.9-16.9); Immature Granulocytes % 1.9 % (0-4); Lymphocytes # 1.6 K/mcL (0.6-4.6); Lymphocytes % 10.4 %; Mean Corpuscular HGB Conc 32.3 g/dL (31.6-35.5); Mean Corpuscular Hemoglobin 26.8 pg (28.0-33.3); Mean Corpuscular Volume 82.9 fL (83.0-100.0); Mean Platelet Volume 11.7 fL (9.4-12.4); Monocytes # 0.7 K/mcL (0.0-1.3); Monocytes % 4.5 %; Neutrophils # 12.6 K/mcL (1.6-8.9); Platelet Count 100 K/mcL (140-400); Red Blood Count 4.74 M/mcL (4.19-5.50); Red Cell Distribution Width 14.4 % (11.5-14.5); Segmented Neutrophils % 80.4 %; White Blood Count 15.6 K/mcL (4.3-11.1)
[2021-01-08 06:48] LABS: Alanine Aminotransferase 26 Units/L (7-52); Albumin 2.9 g/dL (3.5-5.7); Albumin/Globulin Ratio 0.8 (1.1-2.2); Alkaline Phosphatase 98 Units/L (34-104); Aspartate Amino Transferase 16 Units/L (13-39); BUN/Creatinine Ratio 34 (6-26); Bilirubin,Direct 0.3 mg/dL (0.0-0.2); Bilirubin,Indirect 0.7 mg/dL (0.0-1.0); Blood Urea Nitrogen 26 mg/dL (6-20); Calcium 8.5 mg/dL (8.6-10.3); Carbon Dioxide 29 mEq/L (23-29); Chloride 96 mEq/L (98-107); Globulin 3.8 g/dL (2.4-3.5); Glucose 66 mg/dL (70-105); Osmolality,Calculated 279 (280-300); Phosphorous 3.7 mg/dL (2.7-4.5); Potassium 3.9 mEq/L (3.5-5.1); Sodium 133 mEq/L (136-145); Total Protein 6.7 g/dL (6.4-8.9); eGFR For African Americans > 60 (> 60); eGFR For Non-African Americans > 60 (> 60)
[2021-01-08] MEDS: Insulin LISPRO 300 UNITS/3 ML VIAL SUBQ SCH ×4 (07:51→19:50)
[2021-01-08] MEDS: Chlorhexidine Rinse 15 ML MOUTHWASH MM SCH ×2 (08:07→19:59)
[2021-01-08] MEDS: Furosemide 40 MG/4 ML VIAL IVP SCH (08:08)
[2021-01-08] MEDS: Dexamethasone Sodium Phos/PF 10 MG/ML VIAL IVP SCH (08:08)
[2021-01-08] MEDS: Pantoprazole 40 MG VIAL IVP SCH (08:12)
[2021-01-08] MEDS: Heparin 25,000UNIT/250ML 1/2NS 25,000 UNIT/250 ML IV.SOLN IVC SCH (08:21)
[2021-01-08] MEDS: Dexmedetomidine HCl 400 MCG/100 ML MLS IVC SCH (12:31)
[2021-01-08] MEDS: Insulin DETEMIR 100 UNIT/ML X5UNITS SUBQ SCH (13:48)
[2021-01-08] MEDS: Ondansetron 4 MG/2 ML VIAL IVP PRN (14:05)
[2021-01-08] MEDS ORDERED: Insulin DETEMIR 100 UNIT/ML X5UNITS SUBQ SCH (21:00)
[2021-01-09] MEDS: Heparin 25,000UNIT/250ML 1/2NS 25,000 UNIT/250 ML IV.SOLN IVC SCH (00:04)
[2021-01-09] MEDS: Ipratropium/Albuterol Neb 3 ML IH SCH ×4 (04:20→20:45)
[2021-01-09] MEDS: Acetylcysteine 10% 2 ML INHSOL IH SCH ×4 (04:20→20:45)
[2021-01-09 04:52] LABS: Basophils # 0.1 K/mcL (0.0-0.2); Basophils % 0.3 %; Eosinophils # 0.5 K/mcL (0.0-0.6); Eosinophils % 3.1 %; Hematocrit 37.9 % (37.5-50.1); Hemoglobin 12.6 g/dL (12.9-16.9); Immature Granulocytes % 1.6 % (0-4); Lymphocytes # 1.5 K/mcL (0.6-4.6); Lymphocytes % 9.4 %; Mean Corpuscular HGB Conc 33.2 g/dL (31.6-35.5); Mean Corpuscular Hemoglobin 27.3 pg (28.0-33.3); Mean Platelet Volume 11.6 fL (9.4-12.4); Monocytes # 0.7 K/mcL (0.0-1.3); Monocytes % 4.3 %; Neutrophils # 12.7 K/mcL (1.6-8.9); Platelet Count 115 K/mcL (140-400); Red Blood Count 4.62 M/mcL (4.19-5.50); Red Cell Distribution Width 14.6 % (11.5-14.5); Segmented Neutrophils % 81.3 %; White Blood Count 15.6 K/mcL (4.3-11.1)
[2021-01-09 05:03] LABS: Alanine Aminotransferase 21 Units/L (7-52); Albumin 2.8 g/dL (3.5-5.7); Albumin/Globulin Ratio 0.7 (1.1-2.2); Alkaline Phosphatase 89 Units/L (34-104); Aspartate Amino Transferase 15 Units/L (13-39); BUN/Creatinine Ratio 31 (6-26); Bilirubin,Total 1.2 mg/dL (0.3-1.0); Blood Urea Nitrogen 25 mg/dL (6-20); Calcium 8.4 mg/dL (8.6-10.3); Carbon Dioxide 30 mEq/L (23-29); Chloride 96 mEq/L (98-107); Globulin 3.8 g/dL (2.4-3.5); Glucose 165 mg/dL (70-105); Osmolality,Calculated 280 (280-300); Potassium 4.4 mEq/L (3.5-5.1); Sodium 131 mEq/L (136-145); Total Protein 6.6 g/dL (6.4-8.9); eGFR For African Americans > 60 (> 60); eGFR For Non-African Americans > 60 (> 60)
[2021-01-09] MEDS: Dexmedetomidine HCl 400 MCG/100 ML MLS IVC SCH (08:35)
[2021-01-09] MEDS: Chlorhexidine Rinse 15 ML MOUTHWASH MM SCH ×2 (08:36→19:55)
[2021-01-09] MEDS: Dexamethasone Sodium Phos/PF 10 MG/ML VIAL IVP SCH (08:36)
[2021-01-09] MEDS: Furosemide 40 MG/4 ML VIAL IVP SCH (08:36)
[2021-01-09] MEDS: Pantoprazole 40 MG VIAL IVP SCH (08:36)
[2021-01-09] MEDS: Insulin LISPRO 300 UNITS/3 ML VIAL SUBQ SCH ×4 (08:37→19:56)
[2021-01-09] MEDS: Ondansetron 4 MG/2 ML VIAL IVP PRN ×2 (08:44→16:21)
[2021-01-09] MEDS ORDERED: *HR* Metoprolol 5 MG/5 ML VIAL IVP ONE (15:54)
[2021-01-09 16:05] LABS: ABG Base Excess -2 mEq/L (-2 to 3); ABG HCO3 23 mEq/L (21-27); ABG Oxygen Saturation 96 % (95-98); ABG PCO2 41 mmHg (35-45); ABG PH 7.36 pH Units (7.32-7.45); ABG PO2 88 mmHg (85-104); ABG TCO2 25 mEq/L (20-26)
[2021-01-09 16:24] LABS: Basophils # 0.1 K/mcL (0.0-0.2); Basophils % 0.5 %; Eosinophils % 0.1 %; Hematocrit 40.8 % (37.5-50.1); Hemoglobin 13.5 g/dL (12.9-16.9); Immature Granulocytes % 2.4 % (0-4); Lymphocytes # 1.2 K/mcL (0.6-4.6); Mean Corpuscular HGB Conc 33.1 g/dL (31.6-35.5); Mean Corpuscular Hemoglobin 27.7 pg (28.0-33.3); Mean Corpuscular Volume 83.8 fL (83.0-100.0); Mean Platelet Volume 11.4 fL (9.4-12.4); Monocytes # 0.8 K/mcL (0.0-1.3); Monocytes % 3.2 %; Neutrophils # 20.7 K/mcL (1.6-8.9); Platelet Count 165 K/mcL (140-400); Red Blood Count 4.87 M/mcL (4.19-5.50); Red Cell Distribution Width 14.4 % (11.5-14.5); Segmented Neutrophils % 88.8 %; White Blood Count 23.3 K/mcL (4.3-11.1)
[2021-01-09 17:03] LABS: BUN/Creatinine Ratio 26 (6-26); Blood Urea Nitrogen 27 mg/dL (6-20); Calcium 8.7 mg/dL (8.6-10.3); Carbon Dioxide 24 mEq/L (23-29); Chloride 93 mEq/L (98-107); Glucose 235 mg/dL (70-105); Osmolality,Calculated 281 (280-300); Potassium 4.8 mEq/L (3.5-5.1); Sodium 129 mEq/L (136-145); Troponin I 0.03 ng/mL (< 0.04); eGFR For African Americans > 60 (> 60); eGFR For Non-African Americans > 60 (> 60)
[2021-01-09] MEDS: *HR* Enoxaparin 80 MG/0.8 ML SYRINGE SQ SCH (17:50)
[2021-01-09] MEDS ORDERED: Isovue-370 500 ML BOTTLE IVP ONE (18:30)
[2021-01-09] MEDS: Sennosides/Docusate Sodium TABLET PO SCH (19:55)
[2021-01-09] MEDS: Insulin DETEMIR 100 UNIT/ML X5UNITS SUBQ SCH (19:56)
[2021-01-09] MEDS ORDERED: 0.9 % Sodium Chloride 500 ML IVC ONE (20:24)
[2021-01-09] MEDS: Metoclopramide 10 MG/2 ML VIAL IVP PRN (21:31)
[2021-01-10] MEDS: Acetylcysteine 10% 2 ML INHSOL IH SCH ×4 (04:02→20:39)
[2021-01-10] MEDS: Ipratropium/Albuterol Neb 3 ML IH SCH ×4 (04:02→20:39)
[2021-01-10 04:59] LABS: Basophils # 0.1 K/mcL (0.0-0.2); Basophils % 0.4 %; Eosinophils # 0.3 K/mcL (0.0-0.6); Eosinophils % 1.7 %; Hematocrit 36.4 % (37.5-50.1); Immature Granulocytes % 1.6 % (0-4); Lymphocytes # 1.1 K/mcL (0.6-4.6); Mean Corpuscular Hemoglobin 27.1 pg (28.0-33.3); Mean Corpuscular Volume 82.4 fL (83.0-100.0); Mean Platelet Volume 11.6 fL (9.4-12.4); Monocytes # 0.7 K/mcL (0.0-1.3); Monocytes % 4.3 %; Platelet Count 134 K/mcL (140-400); Red Blood Count 4.42 M/mcL (4.19-5.50); Red Cell Distribution Width 14.6 % (11.5-14.5); White Blood Count 15.3 K/mcL (4.3-11.1)
[2021-01-10 05:19] LABS: BUN/Creatinine Ratio 32 (6-26); Blood Urea Nitrogen 25 mg/dL (6-20); Calcium 8.4 mg/dL (8.6-10.3); Carbon Dioxide 28 mEq/L (23-29); Chloride 95 mEq/L (98-107); Glucose 212 mg/dL (70-105); Osmolality,Calculated 281 (280-300); Potassium 4.2 mEq/L (3.5-5.1); Sodium 130 mEq/L (136-145); eGFR For African Americans > 60 (> 60); eGFR For Non-African Americans > 60 (> 60)
[2021-01-10] MEDS: *HR* Enoxaparin 80 MG/0.8 ML SYRINGE SQ SCH ×2 (05:36→17:40)
[2021-01-10] MEDS: *HR* LORazepam 1 MG TABLET PO PRN ×2 (08:55→21:22)
[2021-01-10] MEDS: Sennosides/Docusate Sodium TABLET PO SCH ×3 (08:55→21:22)
[2021-01-10] MEDS: Chlorhexidine Rinse 15 ML MOUTHWASH MM SCH ×2 (08:55→21:22)
[2021-01-10] MEDS: Dexamethasone Sodium Phos/PF 10 MG/ML VIAL IVP SCH (08:56)
[2021-01-10] MEDS: Furosemide 40 MG/4 ML VIAL IVP SCH (08:57)
[2021-01-10] MEDS: Insulin DETEMIR 100 UNIT/ML X5UNITS SUBQ SCH ×2 (08:58→21:23)
[2021-01-10] MEDS: Insulin LISPRO 300 UNITS/3 ML VIAL SUBQ SCH ×4 (09:01→21:15)
[2021-01-10] MEDS: Piperacillin/Tazobactam 3.375 GM in 0.9 % Sodium Chloride Mini Bag 100 ML IVPB SCH ×2 (13:00→21:23)
[2021-01-10] MEDS ORDERED: Micafungin 100 MG in 0.9 % Sodium Chloride Mini Bag 100 ML IVPB SCH (14:15)
[2021-01-10] MEDS: Micafungin 100 MG in 0.9 % Sodium Chloride Mini Bag 100 ML IVPB SCH (18:06)
[2021-01-10] MEDS: Vancomycin 1,250 MG/262.5 ML IV.SOLN IVPB SCH (21:23)
[2021-01-11] MEDS: *HR* Enoxaparin 80 MG/0.8 ML SYRINGE SQ SCH ×2 (03:57→18:22)
[2021-01-11] MEDS: Piperacillin/Tazobactam 3.375 GM in 0.9 % Sodium Chloride Mini Bag 100 ML IVPB SCH (03:57)
[2021-01-11 04:05] LABS: Basophils # 0.1 K/mcL (0.0-0.2); Basophils % 0.3 %; Eosinophils # 0.3 K/mcL (0.0-0.6); Eosinophils % 1.6 %; Hematocrit 37.5 % (37.5-50.1); Hemoglobin 12.3 g/dL (12.9-16.9); Immature Granulocytes % 1.5 % (0-4); Lymphocytes # 1.1 K/mcL (0.6-4.6); Mean Corpuscular HGB Conc 32.8 g/dL (31.6-35.5); Mean Corpuscular Hemoglobin 27.3 pg (28.0-33.3); Mean Corpuscular Volume 83.3 fL (83.0-100.0); Mean Platelet Volume 10.7 fL (9.4-12.4); Monocytes # 0.8 K/mcL (0.0-1.3); Monocytes % 3.8 %; Neutrophils # 18.6 K/mcL (1.6-8.9); Platelet Count 181 K/mcL (140-400); Red Cell Distribution Width 14.7 % (11.5-14.5); Segmented Neutrophils % 87.8 %; White Blood Count 21.2 K/mcL (4.3-11.1)
[2021-01-11 04:27] LABS: BUN/Creatinine Ratio 22 (6-26); Blood Urea Nitrogen 24 mg/dL (6-20); Calcium 8.2 mg/dL (8.6-10.3); Carbon Dioxide 28 mEq/L (23-29); Chloride 98 mEq/L (98-107); Glucose 79 mg/dL (70-105); Magnesium 1.9 mg/dL (1.6-2.6); Osmolality,Calculated 281 (280-300); Phosphorous 3.6 mg/dL (2.7-4.5); Potassium 4.5 mEq/L (3.5-5.1); Sodium 134 mEq/L (136-145); eGFR For African Americans > 60 (> 60); eGFR For Non-African Americans > 60 (> 60)
[2021-01-11] MEDS: Ipratropium/Albuterol Neb 3 ML IH SCH ×4 (04:47→21:05)
[2021-01-11] MEDS: Acetylcysteine 10% 2 ML INHSOL IH SCH ×4 (04:47→21:05)
[2021-01-11] MEDS ORDERED: *HR* Dextrose 50 % in Water (Syg) 50 ML SYRINGE IVP ONE (07:59)
[2021-01-11] MEDS: Chlorhexidine Rinse 15 ML MOUTHWASH MM SCH ×2 (08:33→20:22)
[2021-01-11] MEDS: Cefepime HCl 2,000 MG in Water for inj. (sterile) 20 ML IVP SCH ×2 (08:34→16:22)
[2021-01-11] MEDS: Furosemide 40 MG/4 ML VIAL IVP SCH (08:47)
[2021-01-11] MEDS: Sennosides/Docusate Sodium TABLET PO SCH ×2 (08:53→22:32)
[2021-01-11] MEDS: MetroNIDAZOLE 500 MG/100 ML 500 MG/100 ML BAG IVPB SCH ×2 (09:08→16:22)
[2021-01-11] MEDS: *HR* LORazepam 1 MG TABLET PO PRN ×2 (11:16→20:23)
[2021-01-11] MEDS: Vancomycin 1,250 MG/262.5 ML IV.SOLN IVPB SCH (13:48)
[2021-01-11] MEDS: Insulin LISPRO 300 UNITS/3 ML VIAL SUBQ SCH ×4 (13:49→20:18)
[2021-01-11] MEDS: D5% in Lactated Ringers 1,000 ML IVC SCH (15:32)
[2021-01-11] MEDS: Insulin DETEMIR 100 UNIT/ML X5UNITS SUBQ SCH (16:12)
[2021-01-11] MEDS: Micafungin 100 MG in 0.9 % Sodium Chloride Mini Bag 100 ML IVPB SCH (18:21)
[2021-01-11] MEDS: Dexmedetomidine HCl 400 MCG/100 ML MLS IVC SCH (19:50)
[2021-01-12] MEDS: MetroNIDAZOLE 500 MG/100 ML 500 MG/100 ML BAG IVPB SCH ×3 (00:15→16:17)
[2021-01-12] MEDS: Cefepime HCl 2,000 MG in Water for inj. (sterile) 20 ML IVP SCH ×3 (00:15→16:14)
[2021-01-12] MEDS ORDERED: Saline Nasal Spray 44 ML BOTTLE NS PRN (01:17)
[2021-01-12] MEDS: Vancomycin 1,250 MG/262.5 ML IV.SOLN IVPB SCH ×2 (01:34→15:07)
[2021-01-12] MEDS: Benzonatate 100 MG CAPSULE PO PRN ×2 (01:42→22:18)
[2021-01-12] MEDS: D5% in Lactated Ringers 1,000 ML IVC SCH (03:50)
[2021-01-12 04:07] LABS: Basophils # 0.1 K/mcL (0.0-0.2); Basophils % 0.3 %; Eosinophils # 0.8 K/mcL (0.0-0.6); Eosinophils % 5.2 %; Hematocrit 31.7 % (37.5-50.1); Immature Granulocytes % 1.2 % (0-4); Lymphocytes # 0.9 K/mcL (0.6-4.6); Lymphocytes % 6.2 %; Mean Corpuscular HGB Conc 33.1 g/dL (31.6-35.5); Mean Corpuscular Hemoglobin 28.1 pg (28.0-33.3); Mean Corpuscular Volume 84.8 fL (83.0-100.0); Monocytes # 0.6 K/mcL (0.0-1.3); Monocytes % 4.1 %; Neutrophils # 12.2 K/mcL (1.6-8.9); Platelet Count 156 K/mcL (140-400); Red Blood Count 3.74 M/mcL (4.19-5.50); White Blood Count 14.7 K/mcL (4.3-11.1)
[2021-01-12 04:11] LABS: Hemoglobin 10.5 g/dL (12.9-16.9)
[2021-01-12] MEDS: Acetylcysteine 10% 2 ML INHSOL IH SCH ×4 (04:12→21:52)
[2021-01-12] MEDS: Ipratropium/Albuterol Neb 3 ML IH SCH ×4 (04:12→21:51)
[2021-01-12 04:20] LABS: BUN/Creatinine Ratio 24 (6-26); Blood Urea Nitrogen 18 mg/dL (6-20); Calcium 7.5 mg/dL (8.6-10.3); Carbon Dioxide 28 mEq/L (23-29); Chloride 99 mEq/L (98-107); Glucose 121 mg/dL (70-105); Osmolality,Calculated 277 (280-300); Potassium 3.9 mEq/L (3.5-5.1); Sodium 132 mEq/L (136-145); eGFR For African Americans > 60 (> 60); eGFR For Non-African Americans > 60 (> 60)
[2021-01-12] MEDS: *HR* Enoxaparin 80 MG/0.8 ML SYRINGE SQ SCH ×2 (05:16→17:35)
[2021-01-12] MEDS: Insulin LISPRO 300 UNITS/3 ML VIAL SUBQ SCH ×4 (07:54→20:44)
[2021-01-12] MEDS: Chlorhexidine Rinse 15 ML MOUTHWASH MM SCH ×2 (07:56→22:18)
[2021-01-12] MEDS: Furosemide 40 MG/4 ML VIAL IVP SCH (07:56)
[2021-01-12] MEDS: Sennosides/Docusate Sodium TABLET PO SCH ×2 (07:58→20:47)
[2021-01-12] MEDS: Micafungin 100 MG in 0.9 % Sodium Chloride Mini Bag 100 ML IVPB SCH (17:35)
[2021-01-12] MEDS: Insulin DETEMIR 100 UNIT/ML X5UNITS SUBQ SCH (20:46)
[2021-01-12] MEDS: *HR* LORazepam 1 MG TABLET PO PRN (22:18)
[2021-01-13] MEDS: Cefepime HCl 2,000 MG in Water for inj. (sterile) 20 ML IVP SCH ×4 (00:45→23:52)
[2021-01-13] MEDS: MetroNIDAZOLE 500 MG/100 ML 500 MG/100 ML BAG IVPB SCH ×4 (00:47→23:48)
[2021-01-13] MEDS ORDERED: MetroNIDAZOLE 500 MG/100 ML 500 MG/100 ML BAG IVPB SCH (01:00)
[2021-01-13] MEDS: Vancomycin 1,500 MG/265 ML IV.SOLN IVPB SCH ×2 (02:16→14:16)
[2021-01-13] MEDS: Ipratropium/Albuterol Neb 3 ML IH SCH ×4 (04:12→20:42)
[2021-01-13] MEDS: Acetylcysteine 10% 2 ML INHSOL IH SCH ×4 (04:12→20:42)
[2021-01-13] MEDS: *HR* Enoxaparin 80 MG/0.8 ML SYRINGE SQ SCH ×2 (05:09→17:30)
[2021-01-13 06:09] LABS: Hematocrit 31.5 % (37.5-50.1); Hemoglobin 10.4 g/dL (12.9-16.9); Mean Corpuscular Hemoglobin 27.9 pg (28.0-33.3); Mean Corpuscular Volume 84.5 fL (83.0-100.0); Mean Platelet Volume 10.7 fL (9.4-12.4); Platelet Count 194 K/mcL (140-400); Red Blood Count 3.73 M/mcL (4.19-5.50); Red Cell Distribution Width 14.8 % (11.5-14.5); White Blood Count 12.8 K/mcL (4.3-11.1)
[2021-01-13 06:16] LABS: BUN/Creatinine Ratio 23 (6-26); Blood Urea Nitrogen 14 mg/dL (6-20); Calcium 7.9 mg/dL (8.6-10.3); Carbon Dioxide 27 mEq/L (23-29); Chloride 100 mEq/L (98-107); Glucose 155 mg/dL (70-105); Osmolality,Calculated 280 (280-300); Sodium 133 mEq/L (136-145); eGFR For African Americans > 60 (> 60); eGFR For Non-African Americans > 60 (> 60)
[2021-01-13] MEDS: Insulin LISPRO 300 UNITS/3 ML VIAL SUBQ SCH ×4 (07:34→21:13)
[2021-01-13] MEDS: Furosemide 40 MG/4 ML VIAL IVP SCH (08:25)
[2021-01-13] MEDS: Insulin DETEMIR 100 UNIT/ML X5UNITS SUBQ SCH ×2 (08:25→21:07)
[2021-01-13] MEDS: Sennosides/Docusate Sodium TABLET PO SCH ×3 (08:25→19:29)
[2021-01-13] MEDS: Chlorhexidine Rinse 15 ML MOUTHWASH MM SCH ×2 (08:25→19:19)
[2021-01-13] MEDS: Micafungin 100 MG in 0.9 % Sodium Chloride Mini Bag 100 ML IVPB SCH (17:29)
[2021-01-13] MEDS: *HR* LORazepam 1 MG TABLET PO PRN (19:29)
[2021-01-13 23:05] LABS: A.galactomannan Ag Index 0.03
[2021-01-14] MEDS: Vancomycin 1,500 MG/265 ML IV.SOLN IVPB SCH ×2 (01:51→16:51)
[2021-01-14] MEDS: Acetylcysteine 10% 2 ML INHSOL IH SCH ×4 (04:11→22:38)
[2021-01-14] MEDS: Ipratropium/Albuterol Neb 3 ML IH SCH ×4 (04:11→22:38)
[2021-01-14] MEDS: *HR* Enoxaparin 80 MG/0.8 ML SYRINGE SQ SCH ×2 (04:51→17:01)
[2021-01-14] MEDS: Insulin LISPRO 300 UNITS/3 ML VIAL SUBQ SCH ×4 (08:54→22:04)
[2021-01-14] MEDS: Cefepime HCl 2,000 MG in Water for inj. (sterile) 20 ML IVP SCH ×2 (10:24→17:01)
[2021-01-14] MEDS: Chlorhexidine Rinse 15 ML MOUTHWASH MM SCH ×2 (10:24→20:34)
[2021-01-14] MEDS: Sennosides/Docusate Sodium TABLET PO SCH ×2 (10:24→22:04)
[2021-01-14] MEDS: MetroNIDAZOLE 500 MG/100 ML 500 MG/100 ML BAG IVPB SCH ×2 (10:24→17:01)
[2021-01-14] MEDS: Insulin DETEMIR 100 UNIT/ML X5UNITS SUBQ SCH ×2 (10:25→20:35)
[2021-01-14] MEDS: Ondansetron 4 MG/2 ML VIAL IVP PRN (13:43)
[2021-01-14] MEDS: Micafungin 100 MG in 0.9 % Sodium Chloride Mini Bag 100 ML IVPB SCH (17:00)
[2021-01-14] MEDS: Vancomycin 1,750 MG/517.5 ML IV.SOLN IVPB SCH (18:15)
[2021-01-14] MEDS: *HR* LORazepam 1 MG TABLET PO PRN (20:34)
[2021-01-15] MEDS: MetroNIDAZOLE 500 MG/100 ML 500 MG/100 ML BAG IVPB SCH ×4 (00:43→23:46)
[2021-01-15] MEDS: Cefepime HCl 2,000 MG in Water for inj. (sterile) 20 ML IVP SCH ×5 (00:43→23:46)
[2021-01-15] MEDS: Acetylcysteine 10% 2 ML INHSOL IH SCH ×4 (04:12→22:19)
[2021-01-15] MEDS: Ipratropium/Albuterol Neb 3 ML IH SCH ×4 (04:12→22:18)
[2021-01-15] MEDS: Vancomycin 1,750 MG/517.5 ML IV.SOLN IVPB SCH ×2 (05:12→17:47)
[2021-01-15] MEDS: *HR* Enoxaparin 80 MG/0.8 ML SYRINGE SQ SCH ×2 (05:13→17:47)
[2021-01-15 07:40] LABS: Basophils # 0.1 K/mcL (0.0-0.2); Basophils % 0.6 %; Eosinophils # 0.5 K/mcL (0.0-0.6); Eosinophils % 4.7 %; Hematocrit 31.6 % (37.5-50.1); Hemoglobin 10.2 g/dL (12.9-16.9); Immature Granulocytes % 1.9 % (0-4); Lymphocytes # 0.8 K/mcL (0.6-4.6); Lymphocytes % 7.4 %; Mean Corpuscular HGB Conc 32.3 g/dL (31.6-35.5); Mean Corpuscular Hemoglobin 27.6 pg (28.0-33.3); Mean Corpuscular Volume 85.6 fL (83.0-100.0); Mean Platelet Volume 10.1 fL (9.4-12.4); Monocytes # 0.5 K/mcL (0.0-1.3); Monocytes % 5.1 %; Neutrophils # 8.4 K/mcL (1.6-8.9); Platelet Count 218 K/mcL (140-400); Red Blood Count 3.69 M/mcL (4.19-5.50); Red Cell Distribution Width 14.8 % (11.5-14.5); Segmented Neutrophils % 80.3 %; White Blood Count 10.5 K/mcL (4.3-11.1)
[2021-01-15 07:50] LABS: BUN/Creatinine Ratio 16 (6-26); Blood Urea Nitrogen 10 mg/dL (6-20); Carbon Dioxide 27 mEq/L (23-29); Chloride 105 mEq/L (98-107); Glucose 71 mg/dL (70-105); Osmolality,Calculated 282 (280-300); Sodium 137 mEq/L (136-145); eGFR For African Americans > 60 (> 60); eGFR For Non-African Americans > 60 (> 60)
[2021-01-15] MEDS: Insulin DETEMIR 100 UNIT/ML X5UNITS SUBQ SCH ×2 (07:53→21:11)
[2021-01-15] MEDS: Chlorhexidine Rinse 15 ML MOUTHWASH MM SCH ×2 (07:53→20:42)
[2021-01-15] MEDS: Insulin LISPRO 300 UNITS/3 ML VIAL SUBQ SCH ×4 (07:54→21:10)
[2021-01-15] MEDS: Ondansetron 4 MG/2 ML VIAL IVP PRN (07:59)
[2021-01-15] MEDS: Sennosides/Docusate Sodium TABLET PO SCH ×2 (08:01→21:11)
[2021-01-15] MEDS: *HR* LORazepam 1 MG TABLET PO PRN (20:43)
[2021-01-16 03:33] LABS: Basophils % 0.4 %; Eosinophils # 0.4 K/mcL (0.0-0.6); Eosinophils % 3.9 %; Hematocrit 31.7 % (37.5-50.1); Hemoglobin 10.3 g/dL (12.9-16.9); Immature Granulocytes % 1.8 % (0-4); Lymphocytes # 0.8 K/mcL (0.6-4.6); Lymphocytes % 6.9 %; Mean Corpuscular HGB Conc 32.5 g/dL (31.6-35.5); Mean Corpuscular Hemoglobin 27.8 pg (28.0-33.3); Mean Corpuscular Volume 85.4 fL (83.0-100.0); Mean Platelet Volume 10.3 fL (9.4-12.4); Monocytes # 0.7 K/mcL (0.0-1.3); Monocytes % 5.8 %; Neutrophils # 9.3 K/mcL (1.6-8.9); Platelet Count 220 K/mcL (140-400); Red Blood Count 3.71 M/mcL (4.19-5.50); Red Cell Distribution Width 14.7 % (11.5-14.5); Segmented Neutrophils % 81.2 %; White Blood Count 11.4 K/mcL (4.3-11.1)
[2021-01-16 03:54] LABS: BUN/Creatinine Ratio 16 (6-26); Blood Urea Nitrogen 9 mg/dL (6-20); Calcium 7.9 mg/dL (8.6-10.3); Carbon Dioxide 25 mEq/L (23-29); Chloride 104 mEq/L (98-107); Glucose 57 mg/dL (70-105); Osmolality,Calculated 280 (280-300); Potassium 3.9 mEq/L (3.5-5.1); Sodium 137 mEq/L (136-145); eGFR For African Americans > 60 (> 60); eGFR For Non-African Americans > 60 (> 60)
[2021-01-16] MEDS: Acetylcysteine 10% 2 ML INHSOL IH SCH ×4 (05:36→19:55)
[2021-01-16] MEDS: Ipratropium/Albuterol Neb 3 ML IH SCH ×4 (05:36→19:54)
[2021-01-16] MEDS: Vancomycin 1,750 MG/517.5 ML IV.SOLN IVPB SCH ×2 (05:46→16:14)
[2021-01-16] MEDS: *HR* Enoxaparin 80 MG/0.8 ML SYRINGE SQ SCH ×2 (05:46→17:33)
[2021-01-16] MEDS: Chlorhexidine Rinse 15 ML MOUTHWASH MM SCH ×2 (07:19→20:05)
[2021-01-16] MEDS: MetroNIDAZOLE 500 MG/100 ML 500 MG/100 ML BAG IVPB SCH ×3 (07:19→23:27)
[2021-01-16] MEDS: Cefepime HCl 2,000 MG in Water for inj. (sterile) 20 ML IVP SCH ×3 (07:20→23:27)
[2021-01-16] MEDS: Insulin DETEMIR 100 UNIT/ML X5UNITS SUBQ SCH (07:21)
[2021-01-16] MEDS: *HR* Dextrose 50 % in Water (Syg) 50 ML SYRINGE IVP PRN (07:49)
[2021-01-16] MEDS: Insulin LISPRO 300 UNITS/3 ML VIAL SUBQ SCH ×4 (09:10→20:26)
[2021-01-16] MEDS: Sennosides/Docusate Sodium TABLET PO SCH ×2 (09:10→20:27)
[2021-01-16] MEDS: Ondansetron 4 MG/2 ML VIAL IVP PRN (10:34)
[2021-01-16] MEDS: *HR* LORazepam 1 MG TABLET PO PRN ×2 (15:04→20:04)
[2021-01-17 03:00] LABS: Basophils % 0.4 %; Eosinophils # 0.4 K/mcL (0.0-0.6); Eosinophils % 4.3 %; Hematocrit 29.4 % (37.5-50.1); Hemoglobin 9.7 g/dL (12.9-16.9); Lymphocytes # 0.7 K/mcL (0.6-4.6); Lymphocytes % 7.5 %; Mean Corpuscular Volume 84.7 fL (83.0-100.0); Monocytes # 0.6 K/mcL (0.0-1.3); Monocytes % 5.9 %; Neutrophils # 7.8 K/mcL (1.6-8.9); Platelet Count 200 K/mcL (140-400); Red Blood Count 3.47 M/mcL (4.19-5.50); Red Cell Distribution Width 14.7 % (11.5-14.5); Segmented Neutrophils % 79.9 %; White Blood Count 9.7 K/mcL (4.3-11.1)
[2021-01-17 03:21] LABS: BUN/Creatinine Ratio 16 (6-26); Blood Urea Nitrogen 8 mg/dL (6-20); Calcium 7.8 mg/dL (8.6-10.3); Carbon Dioxide 27 mEq/L (23-29); Chloride 103 mEq/L (98-107); Glucose 148 mg/dL (70-105); Osmolality,Calculated 279 (280-300); Potassium 4.2 mEq/L (3.5-5.1); Sodium 134 mEq/L (136-145); eGFR For African Americans > 60 (> 60); eGFR For Non-African Americans > 60 (> 60)
[2021-01-17] MEDS: Acetylcysteine 10% 2 ML INHSOL IH SCH ×5 (03:46→20:23)
[2021-01-17] MEDS: Ipratropium/Albuterol Neb 3 ML IH SCH ×4 (03:46→20:22)
[2021-01-17] MEDS: Vancomycin 1,750 MG/517.5 ML IV.SOLN IVPB SCH ×2 (05:20→17:06)
[2021-01-17] MEDS: *HR* Enoxaparin 80 MG/0.8 ML SYRINGE SQ SCH ×2 (05:21→17:05)
[2021-01-17] MEDS: Ondansetron 4 MG/2 ML VIAL IVP PRN ×2 (05:28→20:49)
[2021-01-17] MEDS: MetroNIDAZOLE 500 MG/100 ML 500 MG/100 ML BAG IVPB SCH ×2 (07:26→15:03)
[2021-01-17] MEDS: Chlorhexidine Rinse 15 ML MOUTHWASH MM SCH ×2 (07:26→20:49)
[2021-01-17] MEDS: Insulin LISPRO 300 UNITS/3 ML VIAL SUBQ SCH ×4 (07:27→19:38)
[2021-01-17] MEDS: Cefepime HCl 2,000 MG in Water for inj. (sterile) 20 ML IVP SCH ×2 (07:27→15:02)
[2021-01-17] MEDS: Sennosides/Docusate Sodium TABLET PO SCH ×2 (07:28→20:57)
[2021-01-17] MEDS: *HR* LORazepam 1 MG TABLET PO PRN ×2 (10:50→20:49)
[2021-01-17] MEDS: Insulin DETEMIR 100 UNIT/ML X5UNITS SUBQ SCH (10:51)
[2021-01-18] MEDS: Cefepime HCl 2,000 MG in Water for inj. (sterile) 20 ML IVP SCH ×4 (00:09→23:03)
[2021-01-18] MEDS: MetroNIDAZOLE 500 MG/100 ML 500 MG/100 ML BAG IVPB SCH ×2 (00:10→08:03)
[2021-01-18] MEDS: Ipratropium/Albuterol Neb 3 ML IH SCH ×4 (03:48→20:45)
[2021-01-18] MEDS: Acetylcysteine 10% 2 ML INHSOL IH SCH ×4 (03:48→20:45)
[2021-01-18] MEDS: *HR* LORazepam 1 MG TABLET PO PRN ×2 (04:36→10:12)
[2021-01-18] MEDS ORDERED: *HR* Alteplase (Cathflo) 2 MG VIAL IVP ONE (05:01)
[2021-01-18 05:15] LABS: BUN/Creatinine Ratio 15 (6-26); Blood Urea Nitrogen 8 mg/dL (6-20); Carbon Dioxide 25 mEq/L (23-29); Chloride 100 mEq/L (98-107); Glucose 136 mg/dL (70-105); Osmolality,Calculated 276 (280-300); Potassium 4.2 mEq/L (3.5-5.1); Sodium 133 mEq/L (136-145); eGFR For African Americans > 60 (> 60); eGFR For Non-African Americans > 60 (> 60)
[2021-01-18 05:19] LABS: Basophils # 0.1 K/mcL (0.0-0.2); Basophils % 0.6 %; Eosinophils # 0.4 K/mcL (0.0-0.6); Eosinophils % 3.6 %; Hematocrit 31.3 % (37.5-50.1); Hemoglobin 10.1 g/dL (12.9-16.9); Immature Granulocytes % 2.2 % (0-4); Lymphocytes # 0.7 K/mcL (0.6-4.6); Lymphocytes % 5.8 %; Mean Corpuscular HGB Conc 32.3 g/dL (31.6-35.5); Mean Corpuscular Hemoglobin 27.5 pg (28.0-33.3); Mean Corpuscular Volume 85.3 fL (83.0-100.0); Mean Platelet Volume 10.3 fL (9.4-12.4); Monocytes # 0.6 K/mcL (0.0-1.3); Monocytes % 4.8 %; Neutrophils # 10.1 K/mcL (1.6-8.9); Platelet Count 230 K/mcL (140-400); Red Blood Count 3.67 M/mcL (4.19-5.50); Red Cell Distribution Width 14.7 % (11.5-14.5); White Blood Count 12.1 K/mcL (4.3-11.1)
[2021-01-18] MEDS: *HR* Enoxaparin 80 MG/0.8 ML SYRINGE SQ SCH ×2 (06:11→17:44)
[2021-01-18] MEDS: Vancomycin 1,500 MG/265 ML IV.SOLN IVPB SCH ×2 (06:16→17:43)
[2021-01-18] MEDS ORDERED: Levalbuterol Neb 0.63 MG/3 ML IH ONE (06:31)
[2021-01-18] MEDS ORDERED: Ipratropium Neb 0.5 MG NEBULIZER IH ONE (06:31)
[2021-01-18] MEDS: Vancomycin 1,750 MG/517.5 ML IV.SOLN IVPB SCH (06:38)
[2021-01-18] MEDS ORDERED: *HR* LORazepam 2 MG/ML VIAL IVP ONE (06:46)
[2021-01-18] MEDS: Insulin LISPRO 300 UNITS/3 ML VIAL SUBQ SCH ×4 (07:59→21:03)
[2021-01-18] MEDS: Chlorhexidine Rinse 15 ML MOUTHWASH MM SCH ×2 (08:04→19:37)
[2021-01-18] MEDS: Insulin DETEMIR 100 UNIT/ML X5UNITS SUBQ SCH (08:04)
[2021-01-18] MEDS: Furosemide 40 MG/4 ML VIAL IVP SCH ×2 (08:04→19:37)
[2021-01-18] MEDS: Sennosides/Docusate Sodium TABLET PO SCH ×2 (08:18→19:37)
[2021-01-18] MEDS: Dexmedetomidine HCl 400 MCG/100 ML MLS IVC SCH ×2 (12:11→21:01)
[2021-01-18] MEDS ORDERED: Isovue-370 500 ML BOTTLE IVP ONE (14:24)
[2021-01-18] MEDS: levoFLOXacin 750 MG/150 ML 750 MG/150 ML BAG IVPB SCH (16:49)
[2021-01-19] MEDS: Ondansetron 4 MG/2 ML VIAL IVP PRN ×2 (01:40→16:10)
[2021-01-19] MEDS: Dexmedetomidine HCl 400 MCG/100 ML MLS IVC SCH ×3 (03:25→16:14)
[2021-01-19 04:02] LABS: Basophils # 0.1 K/mcL (0.0-0.2); Basophils % 0.7 %; Eosinophils # 0.5 K/mcL (0.0-0.6); Eosinophils % 4.2 %; Hematocrit 30.9 % (37.5-50.1); Hemoglobin 9.7 g/dL (12.9-16.9); Immature Granulocytes % 2.2 % (0-4); Lymphocytes # 0.6 K/mcL (0.6-4.6); Lymphocytes % 5.5 %; Mean Corpuscular HGB Conc 31.4 g/dL (31.6-35.5); Mean Corpuscular Hemoglobin 26.9 pg (28.0-33.3); Mean Corpuscular Volume 85.6 fL (83.0-100.0); Mean Platelet Volume 10.1 fL (9.4-12.4); Monocytes # 0.5 K/mcL (0.0-1.3); Monocytes % 4.3 %; Neutrophils # 9.8 K/mcL (1.6-8.9); Platelet Count 203 K/mcL (140-400); Red Blood Count 3.61 M/mcL (4.19-5.50); Red Cell Distribution Width 14.6 % (11.5-14.5); Segmented Neutrophils % 83.1 %; White Blood Count 11.7 K/mcL (4.3-11.1)
[2021-01-19 04:22] LABS: BUN/Creatinine Ratio 20 (6-26); Blood Urea Nitrogen 12 mg/dL (6-20); Calcium 7.9 mg/dL (8.6-10.3); Carbon Dioxide 29 mEq/L (23-29); Chloride 95 mEq/L (98-107); Glucose 254 mg/dL (70-105); Osmolality,Calculated 280 (280-300); Sodium 131 mEq/L (136-145); eGFR For African Americans > 60 (> 60); eGFR For Non-African Americans > 60 (> 60)
[2021-01-19] MEDS: Ipratropium/Albuterol Neb 3 ML IH SCH ×4 (04:24→20:03)
[2021-01-19] MEDS: Acetylcysteine 10% 2 ML INHSOL IH SCH ×4 (04:24→20:03)
[2021-01-19] MEDS: *HR* Enoxaparin 80 MG/0.8 ML SYRINGE SQ SCH ×2 (05:18→17:39)
[2021-01-19] MEDS: Vancomycin 1,500 MG/265 ML IV.SOLN IVPB SCH (05:20)
[2021-01-19] MEDS: Cefepime HCl 2,000 MG in Water for inj. (sterile) 20 ML IVP SCH ×2 (08:34→16:11)
[2021-01-19] MEDS: Chlorhexidine Rinse 15 ML MOUTHWASH MM SCH ×2 (08:35→21:09)
[2021-01-19] MEDS: Furosemide 40 MG/4 ML VIAL IVP SCH ×2 (08:35→21:09)
[2021-01-19] MEDS: Insulin LISPRO 300 UNITS/3 ML VIAL SUBQ SCH ×4 (08:35→20:52)
[2021-01-19] MEDS: Sennosides/Docusate Sodium TABLET PO SCH ×2 (08:37→21:10)
[2021-01-19] MEDS: *HR* Promethazine 25 MG/ML VIAL IM PRN (09:26)
[2021-01-19] MEDS: Insulin DETEMIR 100 UNIT/ML X5UNITS SUBQ SCH (09:28)
[2021-01-19] MEDS: Magic Mouthwash 10 ML UD Cup PO SCH ×2 (11:42→17:39)
[2021-01-19] MEDS: levoFLOXacin 750 MG/150 ML 750 MG/150 ML BAG IVPB SCH (14:01)
[2021-01-19] MEDS: Meropenem 1,000 MG in Water for inj. (sterile) 20 ML IVP SCH (21:09)
[2021-01-20] MEDS: Vancomycin 1,250 MG/262.5 ML IV.SOLN IVPB SCH ×3 (00:01→23:25)
[2021-01-20] MEDS: Dexmedetomidine HCl 400 MCG/100 ML MLS IVC SCH ×3 (02:08→19:28)
[2021-01-20] MEDS: Acetylcysteine 10% 2 ML INHSOL IH SCH ×4 (03:58→20:37)
[2021-01-20] MEDS: Ipratropium/Albuterol Neb 3 ML IH SCH ×4 (03:58→20:34)
[2021-01-20] MEDS: *HR* Enoxaparin 80 MG/0.8 ML SYRINGE SQ SCH ×2 (05:41→16:47)
[2021-01-20] MEDS: Meropenem 1,000 MG in Water for inj. (sterile) 20 ML IVP SCH ×3 (05:42→19:57)
[2021-01-20] MEDS: Ondansetron 4 MG/2 ML VIAL IVP PRN ×2 (05:45→15:13)
[2021-01-20 06:07] LABS: Hematocrit 30.9 % (37.5-50.1); Hemoglobin 10.3 g/dL (12.9-16.9); Mean Corpuscular HGB Conc 33.3 g/dL (31.6-35.5); Mean Corpuscular Hemoglobin 28.1 pg (28.0-33.3); Mean Corpuscular Volume 84.4 fL (83.0-100.0); Mean Platelet Volume 10.5 fL (9.4-12.4); Platelet Count 201 K/mcL (140-400); Red Blood Count 3.66 M/mcL (4.19-5.50); Red Cell Distribution Width 14.8 % (11.5-14.5); White Blood Count 12.6 K/mcL (4.3-11.1)
[2021-01-20 06:25] LABS: Alanine Aminotransferase 7 Units/L (7-52); Albumin 2.5 g/dL (3.5-5.7); Albumin/Globulin Ratio 0.6 (1.1-2.2); Alkaline Phosphatase 45 Units/L (34-104); Aspartate Amino Transferase 11 Units/L (13-39); BUN/Creatinine Ratio 22 (6-26); Bilirubin,Total 0.4 mg/dL (0.3-1.0); Blood Urea Nitrogen 18 mg/dL (6-20); Calcium 8.1 mg/dL (8.6-10.3); Carbon Dioxide 31 mEq/L (23-29); Chloride 95 mEq/L (98-107); Globulin 4.1 g/dL (2.4-3.5); Glucose 248 mg/dL (70-105); Magnesium 1.5 mg/dL (1.6-2.6); Osmolality,Calculated 284 (280-300); Potassium 3.7 mEq/L (3.5-5.1); Sodium 132 mEq/L (136-145); Total Protein 6.6 g/dL (6.4-8.9); eGFR For African Americans > 60 (> 60); eGFR For Non-African Americans > 60 (> 60)
[2021-01-20] MEDS: Chlorhexidine Rinse 15 ML MOUTHWASH MM SCH ×2 (09:23→19:57)
[2021-01-20] MEDS: Magic Mouthwash 10 ML UD Cup PO SCH ×3 (09:23→16:47)
[2021-01-20] MEDS: Furosemide 40 MG/4 ML VIAL IVP SCH ×2 (09:23→19:56)
[2021-01-20] MEDS: Insulin LISPRO 300 UNITS/3 ML VIAL SUBQ SCH ×4 (09:23→19:58)
[2021-01-20] MEDS: Insulin DETEMIR 100 UNIT/ML X5UNITS SUBQ SCH (09:24)
[2021-01-20] MEDS: Sennosides/Docusate Sodium TABLET PO SCH ×2 (09:27→19:58)
[2021-01-20] MEDS: Vancomycin 1,500 MG/265 ML IV.SOLN IVPB SCH (13:11)
[2021-01-20] MEDS: levoFLOXacin 750 MG/150 ML 750 MG/150 ML BAG IVPB SCH (14:36)
[2021-01-20] MEDS: Nystatin Cream 15 GM TUBE TP SCH ×2 (14:48→19:58)
[2021-01-20] MEDS: hydrOXYzine pamoate 25 MG CAPSULE PO PRN (20:44)
[2021-01-20] MEDS: *HR* Promethazine 25 MG/ML VIAL IM PRN (20:44)
[2021-01-21] MEDS: Ipratropium/Albuterol Neb 3 ML IH SCH ×4 (03:41→20:09)
[2021-01-21] MEDS: Acetylcysteine 10% 2 ML INHSOL IH SCH ×4 (03:41→20:09)
[2021-01-21] MEDS: Dexmedetomidine HCl 400 MCG/100 ML MLS IVC SCH ×2 (04:30→18:33)
[2021-01-21] MEDS: Meropenem 1,000 MG in Water for inj. (sterile) 20 ML IVP SCH ×3 (05:13→20:53)
[2021-01-21] MEDS: *HR* Enoxaparin 80 MG/0.8 ML SYRINGE SQ SCH ×2 (05:13→18:33)
[2021-01-21 05:51] LABS: Hematocrit 32.7 % (37.5-50.1); Hemoglobin 10.3 g/dL (12.9-16.9); Mean Corpuscular HGB Conc 31.5 g/dL (31.6-35.5); Mean Corpuscular Hemoglobin 26.8 pg (28.0-33.3); Mean Corpuscular Volume 84.9 fL (83.0-100.0); Mean Platelet Volume 10.9 fL (9.4-12.4); Platelet Count 202 K/mcL (140-400); Red Blood Count 3.85 M/mcL (4.19-5.50); Red Cell Distribution Width 14.8 % (11.5-14.5); White Blood Count 11.9 K/mcL (4.3-11.1)
[2021-01-21 06:00] LABS: BUN/Creatinine Ratio 21 (6-26); Blood Urea Nitrogen 23 mg/dL (6-20); Calcium 8.4 mg/dL (8.6-10.3); Carbon Dioxide 33 mEq/L (23-29); Chloride 96 mEq/L (98-107); Glucose 201 mg/dL (70-105); Osmolality,Calculated 287 (280-300); Sodium 134 mEq/L (136-145); eGFR For African Americans > 60 (> 60); eGFR For Non-African Americans > 60 (> 60)
[2021-01-21] MEDS: Insulin LISPRO 300 UNITS/3 ML VIAL SUBQ SCH ×4 (09:23→20:56)
[2021-01-21] MEDS: Chlorhexidine Rinse 15 ML MOUTHWASH MM SCH ×2 (09:24→20:53)
[2021-01-21] MEDS: Furosemide 40 MG/4 ML VIAL IVP SCH ×2 (09:24→20:53)
[2021-01-21] MEDS: Magic Mouthwash 10 ML UD Cup PO SCH ×3 (09:24→18:33)
[2021-01-21] MEDS: Sennosides/Docusate Sodium TABLET PO SCH ×2 (09:24→20:56)
[2021-01-21] MEDS: Nystatin Cream 15 GM TUBE TP SCH ×4 (09:24→23:32)
[2021-01-21] MEDS: hydrOXYzine pamoate 25 MG CAPSULE PO PRN ×2 (09:24→20:54)
[2021-01-21] MEDS: Insulin DETEMIR 100 UNIT/ML X5UNITS SUBQ SCH (09:26)
[2021-01-21] MEDS: Vancomycin 1,250 MG/262.5 ML IV.SOLN IVPB SCH ×2 (13:04→23:28)
[2021-01-21] MEDS: levoFLOXacin 750 MG/150 ML 750 MG/150 ML BAG IVPB SCH (14:38)
[2021-01-21] MEDS: Ondansetron 4 MG/2 ML VIAL IVP PRN (18:34)
[2021-01-21] MEDS: *HR* Promethazine 25 MG/ML VIAL IM PRN (20:54)
[2021-01-22] MEDS: Ipratropium/Albuterol Neb 3 ML IH SCH ×4 (03:38→20:13)
[2021-01-22] MEDS: Acetylcysteine 10% 2 ML INHSOL IH SCH ×4 (03:38→20:13)
[2021-01-22] MEDS: Meropenem 1,000 MG in Water for inj. (sterile) 20 ML IVP SCH ×3 (04:01→20:39)
[2021-01-22] MEDS: Ondansetron 4 MG/2 ML VIAL IVP PRN (05:51)
[2021-01-22] MEDS: *HR* Enoxaparin 80 MG/0.8 ML SYRINGE SQ SCH ×2 (05:52→17:25)
[2021-01-22 06:50] LABS: Basophils # 0.1 K/mcL (0.0-0.2); Eosinophils # 0.7 K/mcL (0.0-0.6); Hematocrit 32.5 % (37.5-50.1); Hemoglobin 10.2 g/dL (12.9-16.9); Immature Granulocytes % 3.5 % (0-4); Lymphocytes # 0.8 K/mcL (0.6-4.6); Lymphocytes % 7.1 %; Mean Corpuscular HGB Conc 31.4 g/dL (31.6-35.5); Mean Corpuscular Hemoglobin 26.6 pg (28.0-33.3); Mean Corpuscular Volume 84.9 fL (83.0-100.0); Mean Platelet Volume 11.3 fL (9.4-12.4); Monocytes # 0.5 K/mcL (0.0-1.3); Monocytes % 4.3 %; Neutrophils # 8.6 K/mcL (1.6-8.9); Platelet Count 190 K/mcL (140-400); Red Blood Count 3.83 M/mcL (4.19-5.50); Red Cell Distribution Width 14.9 % (11.5-14.5); Segmented Neutrophils % 78.1 %; White Blood Count 11.1 K/mcL (4.3-11.1)
[2021-01-22 07:12] LABS: BUN/Creatinine Ratio 21 (6-26); Blood Urea Nitrogen 22 mg/dL (6-20); Calcium 8.3 mg/dL (8.6-10.3); Carbon Dioxide 32 mEq/L (23-29); Chloride 96 mEq/L (98-107); Glucose 168 mg/dL (70-105); Osmolality,Calculated 285 (280-300); Sodium 134 mEq/L (136-145); eGFR For African Americans > 60 (> 60); eGFR For Non-African Americans > 60 (> 60)
[2021-01-22] MEDS: Magic Mouthwash 10 ML UD Cup PO SCH ×3 (07:57→15:23)
[2021-01-22] MEDS: *HR* Promethazine 25 MG/ML VIAL IM PRN (08:03)
[2021-01-22] MEDS: hydrOXYzine pamoate 25 MG CAPSULE PO PRN ×2 (08:03→20:40)
[2021-01-22] MEDS: Sennosides/Docusate Sodium TABLET PO SCH ×2 (08:11→20:49)
[2021-01-22] MEDS: Nystatin Cream 15 GM TUBE TP SCH ×2 (08:11→15:19)
[2021-01-22] MEDS: Chlorhexidine Rinse 15 ML MOUTHWASH MM SCH ×2 (08:11→20:49)
[2021-01-22] MEDS: Insulin LISPRO 300 UNITS/3 ML VIAL SUBQ SCH ×4 (08:39→20:49)
[2021-01-22] MEDS: Insulin DETEMIR 100 UNIT/ML X5UNITS SUBQ SCH (08:49)
[2021-01-22] MEDS: Furosemide 40 MG/4 ML VIAL IVP SCH ×2 (08:53→20:38)
[2021-01-22] MEDS: Vancomycin 1,250 MG/262.5 ML IV.SOLN IVPB SCH (11:39)
[2021-01-22] MEDS: Dexmedetomidine HCl 400 MCG/100 ML MLS IVC SCH (12:38)
[2021-01-22] MEDS: Metoclopramide 10 MG/2 ML VIAL IVP PRN (13:52)
[2021-01-22] MEDS: levoFLOXacin 750 MG/150 ML 750 MG/150 ML BAG IVPB SCH (15:22)
[2021-01-23] MEDS: *HR* Promethazine 25 MG/ML VIAL IM PRN (03:49)
[2021-01-23] MEDS: Ipratropium/Albuterol Neb 3 ML IH SCH ×4 (04:00→20:20)
[2021-01-23] MEDS: Acetylcysteine 10% 2 ML INHSOL IH SCH ×4 (04:00→20:19)
[2021-01-23 04:01] LABS: Basophils # 0.1 K/mcL (0.0-0.2); Basophils % 0.9 %; Eosinophils # 0.7 K/mcL (0.0-0.6); Eosinophils % 6.2 %; Hematocrit 32.7 % (37.5-50.1); Hemoglobin 10.6 g/dL (12.9-16.9); Immature Granulocytes % 2.4 % (0-4); Lymphocytes # 0.9 K/mcL (0.6-4.6); Lymphocytes % 7.9 %; Mean Corpuscular HGB Conc 32.4 g/dL (31.6-35.5); Mean Corpuscular Hemoglobin 27.2 pg (28.0-33.3); Mean Corpuscular Volume 84.1 fL (83.0-100.0); Mean Platelet Volume 10.7 fL (9.4-12.4); Monocytes # 0.6 K/mcL (0.0-1.3); Monocytes % 5.2 %; Neutrophils # 9.1 K/mcL (1.6-8.9); Platelet Count 184 K/mcL (140-400); Red Blood Count 3.89 M/mcL (4.19-5.50); Red Cell Distribution Width 14.8 % (11.5-14.5); Segmented Neutrophils % 77.4 %; White Blood Count 11.7 K/mcL (4.3-11.1)
[2021-01-23 04:21] LABS: BUN/Creatinine Ratio 23 (6-26); Blood Urea Nitrogen 21 mg/dL (6-20); Calcium 8.4 mg/dL (8.6-10.3); Carbon Dioxide 31 mEq/L (23-29); Chloride 96 mEq/L (98-107); Glucose 128 mg/dL (70-105); Osmolality,Calculated 283 (280-300); Potassium 3.9 mEq/L (3.5-5.1); Sodium 134 mEq/L (136-145); eGFR For African Americans > 60 (> 60); eGFR For Non-African Americans > 60 (> 60)
[2021-01-23] MEDS: Meropenem 1,000 MG in Water for inj. (sterile) 20 ML IVP SCH ×3 (04:49→20:45)
[2021-01-23] MEDS: hydrOXYzine pamoate 25 MG CAPSULE PO PRN ×2 (04:50→19:44)
[2021-01-23] MEDS: *HR* Enoxaparin 80 MG/0.8 ML SYRINGE SQ SCH ×2 (04:50→17:58)
[2021-01-23] MEDS: Dexmedetomidine HCl 400 MCG/100 ML MLS IVC SCH ×2 (06:20→14:05)
[2021-01-23] MEDS: Furosemide 40 MG/4 ML VIAL IVP SCH (07:32)
[2021-01-23] MEDS: Insulin LISPRO 300 UNITS/3 ML VIAL SUBQ SCH ×4 (07:32→22:27)
[2021-01-23] MEDS: Metoclopramide 10 MG/2 ML VIAL IVP PRN ×2 (07:32→23:59)
[2021-01-23] MEDS: *HR* LORazepam 1 MG TABLET PO PRN (07:33)
[2021-01-23] MEDS: Magic Mouthwash 10 ML UD Cup PO SCH ×3 (07:33→16:37)
[2021-01-23] MEDS: Chlorhexidine Rinse 15 ML MOUTHWASH MM SCH ×2 (07:33→20:45)
[2021-01-23] MEDS: Sennosides/Docusate Sodium TABLET PO SCH ×2 (07:33→20:45)
[2021-01-23] MEDS: Insulin DETEMIR 100 UNIT/ML X5UNITS SUBQ SCH (07:36)
[2021-01-23] MEDS: *HR* Dextrose 50 % in Water (Syg) 50 ML SYRINGE IVP PRN (16:17)
[2021-01-23] MEDS: levoFLOXacin 750 MG/150 ML 750 MG/150 ML BAG IVPB SCH (16:37)
[2021-01-23] MEDS: Ondansetron 4 MG/2 ML VIAL IVP PRN (19:44)
[2021-01-24] MEDS: Sennosides/Docusate Sodium TABLET PO SCH ×3 (00:26→19:56)
[2021-01-24 03:38] LABS: Basophils # 0.1 K/mcL (0.0-0.2); Basophils % 0.7 %; Eosinophils # 0.7 K/mcL (0.0-0.6); Eosinophils % 6.5 %; Hematocrit 31.8 % (37.5-50.1); Hemoglobin 10.1 g/dL (12.9-16.9); Immature Granulocytes % 2.2 % (0-4); Lymphocytes % 9.2 %; Mean Corpuscular HGB Conc 31.8 g/dL (31.6-35.5); Mean Corpuscular Hemoglobin 26.6 pg (28.0-33.3); Mean Corpuscular Volume 83.9 fL (83.0-100.0); Monocytes # 0.7 K/mcL (0.0-1.3); Neutrophils # 8.2 K/mcL (1.6-8.9); Platelet Count 192 K/mcL (140-400); Red Blood Count 3.79 M/mcL (4.19-5.50); Red Cell Distribution Width 14.6 % (11.5-14.5); Segmented Neutrophils % 75.4 %; White Blood Count 10.9 K/mcL (4.3-11.1)
[2021-01-24] MEDS: Acetylcysteine 10% 2 ML INHSOL IH SCH ×4 (03:46→20:10)
[2021-01-24] MEDS: Ipratropium/Albuterol Neb 3 ML IH SCH ×4 (03:47→20:10)
[2021-01-24 03:58] LABS: BUN/Creatinine Ratio 26 (6-26); Blood Urea Nitrogen 24 mg/dL (6-20); Calcium 8.3 mg/dL (8.6-10.3); Carbon Dioxide 34 mEq/L (23-29); Chloride 97 mEq/L (98-107); Glucose 140 mg/dL (70-105); Osmolality,Calculated 284 (280-300); Sodium 134 mEq/L (136-145); eGFR For African Americans > 60 (> 60); eGFR For Non-African Americans > 60 (> 60)
[2021-01-24] MEDS: Meropenem 1,000 MG in Water for inj. (sterile) 20 ML IVP SCH ×3 (04:55→19:57)
[2021-01-24] MEDS: *HR* Enoxaparin 80 MG/0.8 ML SYRINGE SQ SCH ×2 (05:01→20:08)
[2021-01-24] MEDS: Insulin LISPRO 300 UNITS/3 ML VIAL SUBQ SCH ×4 (08:37→19:59)
[2021-01-24] MEDS: Ondansetron 4 MG/2 ML VIAL IVP PRN ×2 (09:02→17:18)
[2021-01-24] MEDS: Magic Mouthwash 10 ML UD Cup PO SCH ×3 (09:09→15:24)
[2021-01-24] MEDS: Chlorhexidine Rinse 15 ML MOUTHWASH MM SCH ×2 (09:09→19:56)
[2021-01-24] MEDS: Insulin DETEMIR 100 UNIT/ML X5UNITS SUBQ SCH (09:27)
[2021-01-24] MEDS: levoFLOXacin 750 MG/150 ML 750 MG/150 ML BAG IVPB SCH (15:18)
[2021-01-24] MEDS: *HR* LORazepam 1 MG TABLET PO PRN (16:27)
[2021-01-25 03:05] LABS: Hemoglobin 9.6 g/dL (12.9-16.9); Mean Corpuscular Hemoglobin 26.4 pg (28.0-33.3); Mean Corpuscular Volume 85.4 fL (83.0-100.0); Mean Platelet Volume 10.9 fL (9.4-12.4); Platelet Count 183 K/mcL (140-400); Red Blood Count 3.63 M/mcL (4.19-5.50); Red Cell Distribution Width 14.6 % (11.5-14.5); White Blood Count 9.7 K/mcL (4.3-11.1)
[2021-01-25 03:27] LABS: BUN/Creatinine Ratio 21 (6-26); Blood Urea Nitrogen 20 mg/dL (6-20); Calcium 8.1 mg/dL (8.6-10.3); Carbon Dioxide 34 mEq/L (23-29); Chloride 99 mEq/L (98-107); Glucose 103 mg/dL (70-105); Osmolality,Calculated 287 (280-300); Potassium 4.2 mEq/L (3.5-5.1); Sodium 137 mEq/L (136-145); Vancomycin,Trough 18 mcg/mL (5-10); eGFR For African Americans > 60 (> 60); eGFR For Non-African Americans > 60 (> 60)
[2021-01-25] MEDS: Ipratropium/Albuterol Neb 3 ML IH SCH ×4 (03:53→20:18)
[2021-01-25] MEDS: Acetylcysteine 10% 2 ML INHSOL IH SCH ×4 (03:53→20:18)
[2021-01-25] MEDS: Meropenem 1,000 MG in Water for inj. (sterile) 20 ML IVP SCH ×3 (05:46→21:14)
[2021-01-25] MEDS: Insulin LISPRO 300 UNITS/3 ML VIAL SUBQ SCH ×4 (07:47→21:05)
[2021-01-25] MEDS: Insulin DETEMIR 100 UNIT/ML X5UNITS SUBQ SCH (08:49)
[2021-01-25] MEDS: Magic Mouthwash 10 ML UD Cup PO SCH ×3 (08:49→18:13)
[2021-01-25] MEDS: Chlorhexidine Rinse 15 ML MOUTHWASH MM SCH ×2 (08:49→21:14)
[2021-01-25] MEDS: Metoclopramide 10 MG/2 ML VIAL IVP PRN (08:50)
[2021-01-25] MEDS: Sennosides/Docusate Sodium TABLET PO SCH ×2 (09:22→21:05)
[2021-01-25] MEDS: Dexmedetomidine HCl 400 MCG/100 ML MLS IVC SCH (09:22)
[2021-01-25] MEDS: *HR* Enoxaparin 80 MG/0.8 ML SYRINGE SQ SCH ×2 (10:17→21:14)
[2021-01-25] MEDS: *HR* LORazepam 1 MG TABLET PO PRN (11:29)
[2021-01-25] MEDS: levoFLOXacin 750 MG/150 ML 750 MG/150 ML BAG IVPB SCH (14:23)
[2021-01-26] MEDS: *HR* LORazepam 1 MG TABLET PO PRN ×3 (00:41→23:48)
[2021-01-26] MEDS: Ondansetron 4 MG/2 ML VIAL IVP PRN ×2 (00:41→12:21)
[2021-01-26 02:38] LABS: Basophils # 0.1 K/mcL (0.0-0.2); Basophils % 0.9 %; Eosinophils # 0.7 K/mcL (0.0-0.6); Eosinophils % 7.8 %; Hematocrit 29.7 % (37.5-50.1); Hemoglobin 9.4 g/dL (12.9-16.9); Immature Granulocytes % 1.4 % (0-4); Lymphocytes % 10.6 %; Mean Corpuscular HGB Conc 31.6 g/dL (31.6-35.5); Mean Corpuscular Hemoglobin 26.8 pg (28.0-33.3); Mean Corpuscular Volume 84.6 fL (83.0-100.0); Mean Platelet Volume 10.7 fL (9.4-12.4); Monocytes # 0.7 K/mcL (0.0-1.3); Monocytes % 7.3 %; Neutrophils # 6.8 K/mcL (1.6-8.9); Platelet Count 188 K/mcL (140-400); Red Blood Count 3.51 M/mcL (4.19-5.50); Red Cell Distribution Width 14.6 % (11.5-14.5); White Blood Count 9.4 K/mcL (4.3-11.1)
[2021-01-26 02:48] LABS: BUN/Creatinine Ratio 20 (6-26); Blood Urea Nitrogen 20 mg/dL (6-20); Carbon Dioxide 35 mEq/L (23-29); Chloride 100 mEq/L (98-107); Glucose 99 mg/dL (70-105); Osmolality,Calculated 289 (280-300); Potassium 4.4 mEq/L (3.5-5.1); Sodium 138 mEq/L (136-145); eGFR For African Americans > 60 (> 60); eGFR For Non-African Americans > 60 (> 60)
[2021-01-26] MEDS: Ipratropium/Albuterol Neb 3 ML IH SCH ×4 (04:15→19:49)
[2021-01-26] MEDS: Acetylcysteine 10% 2 ML INHSOL IH SCH ×4 (04:15→19:48)
[2021-01-26] MEDS: Meropenem 1,000 MG in Water for inj. (sterile) 20 ML IVP SCH ×3 (06:00→20:02)
[2021-01-26] MEDS: Dexmedetomidine HCl 400 MCG/100 ML MLS IVC SCH (07:41)
[2021-01-26] MEDS: *HR* Enoxaparin 80 MG/0.8 ML SYRINGE SQ SCH ×2 (07:57→20:03)
[2021-01-26] MEDS: Insulin DETEMIR 100 UNIT/ML X5UNITS SUBQ SCH (07:57)
[2021-01-26] MEDS: Magic Mouthwash 10 ML UD Cup PO SCH ×3 (07:57→16:58)
[2021-01-26] MEDS: Chlorhexidine Rinse 15 ML MOUTHWASH MM SCH ×2 (07:57→20:02)
[2021-01-26] MEDS: Sennosides/Docusate Sodium TABLET PO SCH ×2 (07:57→20:03)
[2021-01-26] MEDS: Insulin LISPRO 300 UNITS/3 ML VIAL SUBQ SCH ×4 (07:59→19:36)
[2021-01-26] MEDS: levoFLOXacin 750 MG/150 ML 750 MG/150 ML BAG IVPB SCH (15:10)
[2021-01-26] MEDS: Metoclopramide 10 MG/2 ML VIAL IVP PRN (16:58)
[2021-01-26] MEDS: *HR* Dextrose 50 % in Water (Syg) 50 ML SYRINGE IVP PRN ×2 (17:27→23:47)
[2021-01-27 04:03] LABS: BUN/Creatinine Ratio 17 (6-26); Blood Urea Nitrogen 18 mg/dL (6-20); Calcium 8.2 mg/dL (8.6-10.3); Carbon Dioxide 37 mEq/L (23-29); Chloride 98 mEq/L (98-107); Glucose 94 mg/dL (70-105); Osmolality,Calculated 282 (280-300); Potassium 4.6 mEq/L (3.5-5.1); Sodium 135 mEq/L (136-145); eGFR For African Americans > 60 (> 60); eGFR For Non-African Americans > 60 (> 60)
[2021-01-27] MEDS: Acetylcysteine 10% 2 ML INHSOL IH SCH ×4 (04:06→19:40)
[2021-01-27] MEDS: Ipratropium/Albuterol Neb 3 ML IH SCH ×4 (04:07→19:41)
[2021-01-27 04:17] LABS: Basophils # 0.1 K/mcL (0.0-0.2); Eosinophils # 0.8 K/mcL (0.0-0.6); Eosinophils % 9.3 %; Hematocrit 29.2 % (37.5-50.1); Hemoglobin 9.2 g/dL (12.9-16.9); Immature Granulocytes % 1.4 % (0-4); Lymphocytes % 11.8 %; Mean Corpuscular HGB Conc 31.5 g/dL (31.6-35.5); Mean Corpuscular Hemoglobin 26.7 pg (28.0-33.3); Mean Corpuscular Volume 84.6 fL (83.0-100.0); Mean Platelet Volume 10.7 fL (9.4-12.4); Monocytes # 0.7 K/mcL (0.0-1.3); Monocytes % 8.1 %; Neutrophils # 5.5 K/mcL (1.6-8.9); Platelet Count 177 K/mcL (140-400); Red Blood Count 3.45 M/mcL (4.19-5.50); Red Cell Distribution Width 14.3 % (11.5-14.5); Segmented Neutrophils % 68.4 %
[2021-01-27] MEDS: Meropenem 1,000 MG in Water for inj. (sterile) 20 ML IVP SCH ×3 (05:02→20:31)
[2021-01-27] MEDS: Insulin LISPRO 300 UNITS/3 ML VIAL SUBQ SCH ×4 (08:35→20:30)
[2021-01-27] MEDS: Dexmedetomidine HCl 400 MCG/100 ML MLS IVC SCH (08:35)
[2021-01-27] MEDS: Insulin DETEMIR 100 UNIT/ML X5UNITS SUBQ SCH (08:48)
[2021-01-27] MEDS: Chlorhexidine Rinse 15 ML MOUTHWASH MM SCH ×2 (08:48→20:31)
[2021-01-27] MEDS: Magic Mouthwash 10 ML UD Cup PO SCH ×3 (08:48→17:05)
[2021-01-27] MEDS: Sennosides/Docusate Sodium TABLET PO SCH ×2 (08:49→20:05)
[2021-01-27] MEDS: *HR* Enoxaparin 80 MG/0.8 ML SYRINGE SQ SCH ×2 (08:53→20:31)
[2021-01-27] MEDS: levoFLOXacin 750 MG/150 ML 750 MG/150 ML BAG IVPB SCH (14:41)
[2021-01-27] MEDS: *HR* LORazepam 1 MG TABLET PO PRN (15:35)
[2021-01-27] MEDS: Ondansetron 4 MG/2 ML VIAL IVP PRN (15:35)
[2021-01-28] MEDS: Dexmedetomidine HCl 400 MCG/100 ML MLS IVC SCH (01:19)
[2021-01-28] MEDS: *HR* LORazepam 1 MG TABLET PO PRN ×2 (01:30→17:14)
[2021-01-28] MEDS: Ipratropium/Albuterol Neb 3 ML IH SCH ×4 (03:29→19:48)
[2021-01-28] MEDS: Acetylcysteine 10% 2 ML INHSOL IH SCH ×4 (03:29→19:48)
[2021-01-28] MEDS: hydrOXYzine pamoate 25 MG CAPSULE PO PRN (04:38)
[2021-01-28] MEDS: Meropenem 1,000 MG in Water for inj. (sterile) 20 ML IVP SCH ×3 (04:38→21:28)
[2021-01-28 05:15] LABS: Basophils # 0.1 K/mcL (0.0-0.2); Basophils % 1.2 %; Eosinophils % 11.8 %; Hematocrit 29.5 % (37.5-50.1); Hemoglobin 9.3 g/dL (12.9-16.9); Immature Granulocytes % 1.5 % (0-4); Lymphocytes # 0.8 K/mcL (0.6-4.6); Lymphocytes % 10.3 %; Mean Corpuscular HGB Conc 31.5 g/dL (31.6-35.5); Mean Corpuscular Volume 85.8 fL (83.0-100.0); Monocytes # 0.7 K/mcL (0.0-1.3); Monocytes % 9.1 %; Neutrophils # 5.4 K/mcL (1.6-8.9); Platelet Count 175 K/mcL (140-400); Red Blood Count 3.44 M/mcL (4.19-5.50); Red Cell Distribution Width 14.4 % (11.5-14.5); Segmented Neutrophils % 66.1 %; White Blood Count 8.1 K/mcL (4.3-11.1)
[2021-01-28 05:38] LABS: BUN/Creatinine Ratio 15 (6-26); Blood Urea Nitrogen 17 mg/dL (6-20); Calcium 8.2 mg/dL (8.6-10.3); Carbon Dioxide 33 mEq/L (23-29); Chloride 100 mEq/L (98-107); Glucose 113 mg/dL (70-105); Osmolality,Calculated 286 (280-300); Potassium 4.6 mEq/L (3.5-5.1); Sodium 137 mEq/L (136-145); eGFR For African Americans > 60 (> 60); eGFR For Non-African Americans > 60 (> 60)
[2021-01-28] MEDS: Insulin LISPRO 300 UNITS/3 ML VIAL SUBQ SCH ×4 (08:19→21:27)
[2021-01-28] MEDS: Magic Mouthwash 10 ML UD Cup PO SCH ×3 (08:20→16:45)
[2021-01-28] MEDS: Chlorhexidine Rinse 15 ML MOUTHWASH MM SCH ×2 (08:20→21:28)
[2021-01-28] MEDS: Sennosides/Docusate Sodium TABLET PO SCH ×3 (08:20→21:28)
[2021-01-28] MEDS: *HR* Enoxaparin 80 MG/0.8 ML SYRINGE SQ SCH ×2 (08:52→21:45)
[2021-01-28] MEDS: levoFLOXacin 750 MG/150 ML 750 MG/150 ML BAG IVPB SCH (16:43)
[2021-01-28] MEDS: *HR* Promethazine 25 MG/ML VIAL IM PRN (17:14)
[2021-01-29] MEDS: Ipratropium/Albuterol Neb 3 ML IH SCH ×2 (04:06→11:40)
[2021-01-29] MEDS: Acetylcysteine 10% 2 ML INHSOL IH SCH ×2 (04:06→11:40)
[2021-01-29 04:25] LABS: Basophils # 0.1 K/mcL (0.0-0.2); Eosinophils # 0.9 K/mcL (0.0-0.6); Eosinophils % 12.1 %; Hemoglobin 8.6 g/dL (12.9-16.9); Immature Granulocytes % 1.4 % (0-4); Lymphocytes % 12.3 %; Mean Corpuscular HGB Conc 30.7 g/dL (31.6-35.5); Mean Corpuscular Hemoglobin 26.2 pg (28.0-33.3); Mean Corpuscular Volume 85.4 fL (83.0-100.0); Mean Platelet Volume 11.3 fL (9.4-12.4); Monocytes # 0.7 K/mcL (0.0-1.3); Monocytes % 8.6 %; Platelet Count 182 K/mcL (140-400); Red Blood Count 3.28 M/mcL (4.19-5.50); Red Cell Distribution Width 14.4 % (11.5-14.5); Segmented Neutrophils % 64.6 %; White Blood Count 7.7 K/mcL (4.3-11.1)
[2021-01-29 04:47] LABS: BUN/Creatinine Ratio 14 (6-26); Blood Urea Nitrogen 20 mg/dL (6-20); Carbon Dioxide 35 mEq/L (23-29); Chloride 103 mEq/L (98-107); Glucose 156 mg/dL (70-105); Osmolality,Calculated 294 (280-300); Potassium 4.5 mEq/L (3.5-5.1); Sodium 139 mEq/L (136-145); eGFR For African Americans > 60 (> 60); eGFR For Non-African Americans 55 (> 60)
[2021-01-29] MEDS: Ondansetron 4 MG/2 ML VIAL IVP PRN ×2 (05:51→14:23)
[2021-01-29] MEDS: Meropenem 1,000 MG in Water for inj. (sterile) 20 ML IVP SCH ×3 (05:51→21:05)
[2021-01-29] MEDS: *HR* LORazepam 1 MG TABLET PO PRN ×2 (05:51→14:23)
[2021-01-29] MEDS: Dexmedetomidine HCl 400 MCG/100 ML MLS IVC SCH (10:43)
[2021-01-29] MEDS: Insulin LISPRO 300 UNITS/3 ML VIAL SUBQ SCH ×4 (10:44→21:11)
[2021-01-29] MEDS: Magic Mouthwash 10 ML UD Cup PO SCH ×3 (10:48→14:28)
[2021-01-29] MEDS: Sennosides/Docusate Sodium TABLET PO SCH ×2 (10:48→21:07)
[2021-01-29] MEDS: Chlorhexidine Rinse 15 ML MOUTHWASH MM SCH ×2 (10:48→21:06)
[2021-01-29] MEDS: *HR* Enoxaparin 80 MG/0.8 ML SYRINGE SQ SCH ×2 (11:06→21:06)
[2021-01-29] MEDS ORDERED: Ipratropium/Albuterol Neb 3 ML IH PRN (11:30)
[2021-01-29] MEDS ORDERED: Acetylcysteine 10% 2 ML INHSOL IH PRN (11:41)
[2021-01-29] MEDS: levoFLOXacin 750 MG/150 ML 750 MG/150 ML BAG IVPB SCH (14:00)
[2021-01-29] MEDS: hydrOXYzine pamoate 25 MG CAPSULE PO PRN (21:06)
[2021-01-30] MEDS: Benzonatate 100 MG CAPSULE PO PRN (02:04)
[2021-01-30] MEDS: *HR* LORazepam 1 MG TABLET PO PRN ×3 (02:04→16:53)
[2021-01-30] MEDS: hydrOXYzine pamoate 25 MG CAPSULE PO PRN (06:11)
[2021-01-30] MEDS: Meropenem 1,000 MG in Water for inj. (sterile) 20 ML IVP SCH ×3 (06:11→20:23)
[2021-01-30 06:37] LABS: Basophils # 0.1 K/mcL (0.0-0.2); Basophils % 1.2 %; Eosinophils % 13.6 %; Hemoglobin 8.8 g/dL (12.9-16.9); Immature Granulocytes % 1.3 % (0-4); Mean Corpuscular HGB Conc 30.3 g/dL (31.6-35.5); Mean Corpuscular Volume 85.8 fL (83.0-100.0); Mean Platelet Volume 10.9 fL (9.4-12.4); Monocytes # 0.7 K/mcL (0.0-1.3); Monocytes % 8.8 %; Neutrophils # 4.6 K/mcL (1.6-8.9); Platelet Count 179 K/mcL (140-400); Red Blood Count 3.38 M/mcL (4.19-5.50); Red Cell Distribution Width 14.3 % (11.5-14.5); Segmented Neutrophils % 62.1 %; White Blood Count 7.5 K/mcL (4.3-11.1)
[2021-01-30 06:48] LABS: Calcium 8.4 mg/dL (8.6-10.3); Potassium 4.8 mEq/L (3.5-5.1)
[2021-01-30] MEDS: Insulin LISPRO 300 UNITS/3 ML VIAL SUBQ SCH ×4 (08:13→19:50)
[2021-01-30] MEDS: *HR* Enoxaparin 80 MG/0.8 ML SYRINGE SQ SCH ×2 (08:14→20:22)
[2021-01-30] MEDS: Chlorhexidine Rinse 15 ML MOUTHWASH MM SCH ×2 (08:14→20:22)
[2021-01-30] MEDS: Sennosides/Docusate Sodium TABLET PO SCH ×2 (08:15→20:23)
[2021-01-30] MEDS: Magic Mouthwash 10 ML UD Cup PO SCH ×3 (08:16→16:56)
[2021-01-30] MEDS: Ondansetron 4 MG/2 ML VIAL IVP PRN (14:08)
[2021-01-30] MEDS: levoFLOXacin 750 MG/150 ML 750 MG/150 ML BAG IVPB SCH (14:15)
[2021-01-31] MEDS: Benzonatate 100 MG CAPSULE PO PRN (05:18)
[2021-01-31] MEDS: *HR* LORazepam 1 MG TABLET PO PRN ×2 (05:18→20:15)
[2021-01-31] MEDS: hydrOXYzine pamoate 25 MG CAPSULE PO PRN (05:19)
[2021-01-31] MEDS: Meropenem 1,000 MG in Water for inj. (sterile) 20 ML IVP SCH (05:19)
[2021-01-31] MEDS: Metoclopramide 10 MG/2 ML VIAL IVP PRN (05:19)
[2021-01-31 06:00] LABS: Basophils # 0.1 K/mcL (0.0-0.2); Basophils % 1.2 %; Eosinophils # 1.2 K/mcL (0.0-0.6); Eosinophils % 15.4 %; Hematocrit 27.6 % (37.5-50.1); Hemoglobin 8.8 g/dL (12.9-16.9); Immature Granulocytes % 1.4 % (0-4); Lymphocytes # 0.9 K/mcL (0.6-4.6); Lymphocytes % 11.4 %; Mean Corpuscular HGB Conc 31.9 g/dL (31.6-35.5); Mean Corpuscular Hemoglobin 27.2 pg (28.0-33.3); Mean Corpuscular Volume 85.2 fL (83.0-100.0); Mean Platelet Volume 11.1 fL (9.4-12.4); Monocytes # 0.7 K/mcL (0.0-1.3); Monocytes % 9.2 %; Neutrophils # 4.7 K/mcL (1.6-8.9); Platelet Count 171 K/mcL (140-400); Red Blood Count 3.24 M/mcL (4.19-5.50); Red Cell Distribution Width 13.9 % (11.5-14.5); Segmented Neutrophils % 61.4 %; White Blood Count 7.6 K/mcL (4.3-11.1)
[2021-01-31 06:23] LABS: Calcium 8.3 mg/dL (8.6-10.3); Potassium 4.8 mEq/L (3.5-5.1)
[2021-01-31] MEDS: Insulin LISPRO 300 UNITS/3 ML VIAL SUBQ SCH ×4 (09:19→22:54)
[2021-01-31] MEDS: Magic Mouthwash 10 ML UD Cup PO SCH ×3 (09:33→17:59)
[2021-01-31] MEDS: Sennosides/Docusate Sodium TABLET PO SCH ×2 (09:34→22:55)
[2021-01-31] MEDS: *HR* Enoxaparin 80 MG/0.8 ML SYRINGE SQ SCH ×2 (09:34→20:15)
[2021-01-31] MEDS: Chlorhexidine Rinse 15 ML MOUTHWASH MM SCH ×2 (09:34→20:15)
[2021-01-31] MEDS: 0.9 % Sodium Chloride 1,000 ML IVC SCH (14:59)
[2021-01-31] MEDS: Ceftaroline Fosamil Acetate 600 MG in 0.9 % Sodium Chloride 50 ML IVPB SCH (17:57)
[2021-01-31] MEDS: levoFLOXacin 750 MG/150 ML 750 MG/150 ML BAG IVPB SCH (17:58)
[2021-01-31] MEDS: Ondansetron 4 MG/2 ML VIAL IVP PRN (20:15)
[2021-02-01] MEDS: 0.9 % Sodium Chloride 1,000 ML IVC SCH (02:25)
[2021-02-01] MEDS: Ceftaroline Fosamil Acetate 600 MG in 0.9 % Sodium Chloride 50 ML IVPB SCH ×2 (02:25→14:22)
[2021-02-01 03:03] LABS: Basophils # 0.1 K/mcL (0.0-0.2); Eosinophils # 1.1 K/mcL (0.0-0.6); Eosinophils % 14.9 %; Hematocrit 25.7 % (37.5-50.1); Hemoglobin 8.1 g/dL (12.9-16.9); Immature Granulocytes % 1.4 % (0-4); Lymphocytes # 0.8 K/mcL (0.6-4.6); Lymphocytes % 10.9 %; Mean Corpuscular HGB Conc 31.5 g/dL (31.6-35.5); Mean Corpuscular Hemoglobin 26.7 pg (28.0-33.3); Mean Corpuscular Volume 84.8 fL (83.0-100.0); Mean Platelet Volume 11.1 fL (9.4-12.4); Monocytes # 0.7 K/mcL (0.0-1.3); Monocytes % 8.9 %; Neutrophils # 4.6 K/mcL (1.6-8.9); Platelet Count 161 K/mcL (140-400); Red Blood Count 3.03 M/mcL (4.19-5.50); Segmented Neutrophils % 62.9 %; White Blood Count 7.3 K/mcL (4.3-11.1)
[2021-02-01 03:22] LABS: Calcium 7.7 mg/dL (8.6-10.3); Potassium 4.6 mEq/L (3.5-5.1)
[2021-02-01] MEDS: Ondansetron 4 MG/2 ML VIAL IVP PRN (04:44)
[2021-02-01] MEDS: Metoclopramide 10 MG/2 ML VIAL IVP PRN ×3 (07:51→21:40)
[2021-02-01] MEDS: Insulin LISPRO 300 UNITS/3 ML VIAL SUBQ SCH ×4 (07:52→21:05)
[2021-02-01] MEDS: Magic Mouthwash 10 ML UD Cup PO SCH ×3 (07:52→17:03)
[2021-02-01] MEDS: Chlorhexidine Rinse 15 ML MOUTHWASH MM SCH ×2 (07:52→20:17)
[2021-02-01] MEDS: Sennosides/Docusate Sodium TABLET PO SCH ×2 (07:56→21:05)
[2021-02-01] MEDS: *HR* Promethazine 25 MG/ML VIAL IM PRN ×2 (09:41→16:03)
[2021-02-01] MEDS: *HR* LORazepam 1 MG TABLET PO PRN (09:47)
[2021-02-01] MEDS: *HR* Enoxaparin 80 MG/0.8 ML SYRINGE SQ SCH (09:47)
[2021-02-01] MEDS: levoFLOXacin 750 MG/150 ML 750 MG/150 ML BAG IVPB SCH (14:25)
[2021-02-01 20:19] LABS: Bacteria,Urine Few per hpf (None-Few); Bilirubin,Urine Negative (Negative); Blood,Urine Large (Negative); Budding Yeast,Urine Many per hpf (None Seen); Clarity,Urine Ex.Turbid (Clear); Color,Urine Light-Orange (Yellow); Glucose,Urine (UA) Normal (Normal); Hyaline Casts,Urine Few per lpf (None Seen); Ketones,Urine Trace mg/dL (Negative); Leukocyte Esterase,Urine Negative (Negative); Nitrite,Urine Negative (Negative); Protein,Urine >=300 mg/dL (Neg-Trace); RBC,Urine TNTC per hpf (0-3); Specific Gravity,Urine 1.022 (1.010-1.025); WBC,Urine 30-50 per hpf (0-3)
[2021-02-01 20:48] LABS: Protein/Creatinine Ratio,Urine 7.35 mg/mg (0.00-0.20); Sodium, Urine 50.8 mEq/L
[2021-02-02] MEDS: Ondansetron 4 MG/2 ML VIAL IVP PRN ×3 (01:41→22:33)
[2021-02-02] MEDS: Ceftaroline Fosamil Acetate 400 MG in 0.9 % Sodium Chloride 50 ML IVPB SCH ×2 (01:46→14:47)
[2021-02-02] MEDS: 0.9 % Sodium Chloride 1,000 ML IVC SCH ×4 (01:46→18:09)
[2021-02-02] MEDS: *HR* Promethazine 25 MG/ML VIAL IM PRN (03:02)
[2021-02-02 05:50] LABS: Basophils # 0.1 K/mcL (0.0-0.2); Basophils % 0.7 %; Eosinophils # 0.4 K/mcL (0.0-0.6); Eosinophils % 5.7 %; Hematocrit 26.2 % (37.5-50.1); Hemoglobin 8.3 g/dL (12.9-16.9); Immature Granulocytes % 1.1 % (0-4); Lymphocytes # 0.6 K/mcL (0.6-4.6); Lymphocytes % 8.4 %; Mean Corpuscular HGB Conc 31.7 g/dL (31.6-35.5); Mean Corpuscular Hemoglobin 26.7 pg (28.0-33.3); Mean Corpuscular Volume 84.2 fL (83.0-100.0); Mean Platelet Volume 10.9 fL (9.4-12.4); Monocytes # 0.5 K/mcL (0.0-1.3); Monocytes % 7.5 %; Neutrophils # 5.4 K/mcL (1.6-8.9); Platelet Count 165 K/mcL (140-400); Red Blood Count 3.11 M/mcL (4.19-5.50); Red Cell Distribution Width 13.8 % (11.5-14.5); Segmented Neutrophils % 76.6 %
[2021-02-02 06:15] LABS: Uric Acid 5.9 mg/dL (2.3-7.6)
[2021-02-02] MEDS: Chlorhexidine Rinse 15 ML MOUTHWASH MM SCH ×2 (08:00→22:33)
[2021-02-02] MEDS: Magic Mouthwash 10 ML UD Cup PO SCH ×3 (08:00→16:53)
[2021-02-02] MEDS: Insulin LISPRO 300 UNITS/3 ML VIAL SUBQ SCH ×4 (08:00→22:40)
[2021-02-02] MEDS: Sennosides/Docusate Sodium TABLET PO SCH ×2 (08:01→22:40)
[2021-02-02] MEDS: Nystatin POWDER 30 GM BOTTLE TP SCH (22:40)
[2021-02-03] MEDS: Ceftaroline Fosamil Acetate 400 MG in 0.9 % Sodium Chloride 50 ML IVPB SCH ×2 (02:49→13:33)
[2021-02-03] MEDS: Metoclopramide 10 MG/2 ML VIAL IVP PRN ×2 (05:41→20:09)
[2021-02-03] MEDS: 0.9 % Sodium Chloride 1,000 ML IVC SCH (05:41)
[2021-02-03 06:36] LABS: Basophils % 0.3 %; Eosinophils # 0.2 K/mcL (0.0-0.6); Eosinophils % 2.6 %; Hematocrit 26.5 % (37.5-50.1); Hemoglobin 8.5 g/dL (12.9-16.9); Immature Granulocytes % 0.9 % (0-4); Lymphocytes # 0.6 K/mcL (0.6-4.6); Lymphocytes % 6.1 %; Mean Corpuscular HGB Conc 32.1 g/dL (31.6-35.5); Mean Corpuscular Hemoglobin 27.2 pg (28.0-33.3); Mean Corpuscular Volume 84.7 fL (83.0-100.0); Mean Platelet Volume 11.1 fL (9.4-12.4); Monocytes # 0.8 K/mcL (0.0-1.3); Monocytes % 8.4 %; Neutrophils # 7.7 K/mcL (1.6-8.9); Platelet Count 181 K/mcL (140-400); Red Blood Count 3.13 M/mcL (4.19-5.50); Segmented Neutrophils % 81.7 %; White Blood Count 9.4 K/mcL (4.3-11.1)
[2021-02-03 06:55] LABS: Calcium 7.7 mg/dL (8.6-10.3)
[2021-02-03] MEDS: Insulin LISPRO 300 UNITS/3 ML VIAL SUBQ SCH ×4 (08:41→20:09)
[2021-02-03] MEDS: Chlorhexidine Rinse 15 ML MOUTHWASH MM SCH ×2 (08:48→20:09)
[2021-02-03] MEDS: Magic Mouthwash 10 ML UD Cup PO SCH ×3 (08:48→18:28)
[2021-02-03] MEDS: Nystatin POWDER 30 GM BOTTLE TP SCH ×3 (08:58→20:09)
[2021-02-03] MEDS: Sennosides/Docusate Sodium TABLET PO SCH ×2 (08:58→20:09)
[2021-02-03 09:16] LABS: Complement C3 89 mg/dL (87-200)
[2021-02-03] MEDS ORDERED: levoFLOXacin 750 MG/150 ML 750 MG/150 ML BAG IVPB SCH (14:00)
[2021-02-03] MEDS: Ondansetron 4 MG/2 ML VIAL IVP PRN (15:07)
[2021-02-03] MEDS: Dexmedetomidine HCl 400 MCG/100 ML MLS IVC SCH (16:11)
[2021-02-03] MEDS: Benzonatate 100 MG CAPSULE PO PRN (20:08)
[2021-02-03] MEDS: hydrOXYzine pamoate 25 MG CAPSULE PO PRN (20:08)
[2021-02-03] MEDS: *HR* Enoxaparin 80 MG/0.8 ML SYRINGE SQ SCH (20:21)
[2021-02-04] MEDS: Ceftaroline Fosamil Acetate 400 MG in 0.9 % Sodium Chloride 50 ML IVPB SCH ×2 (02:23→15:15)
[2021-02-04] MEDS: *HR* LORazepam 1 MG TABLET PO PRN (02:23)
[2021-02-04] MEDS: hydrOXYzine pamoate 25 MG CAPSULE PO PRN ×2 (05:30→21:41)
[2021-02-04 06:38] LABS: Basophils % 0.5 %; Eosinophils # 0.3 K/mcL (0.0-0.6); Eosinophils % 3.9 %; Hematocrit 24.9 % (37.5-50.1); Hemoglobin 7.6 g/dL (12.9-16.9); Immature Granulocytes % 0.8 % (0-4); Lymphocytes # 0.6 K/mcL (0.6-4.6); Lymphocytes % 7.2 %; Mean Corpuscular HGB Conc 30.5 g/dL (31.6-35.5); Mean Corpuscular Hemoglobin 26.1 pg (28.0-33.3); Mean Corpuscular Volume 85.6 fL (83.0-100.0); Mean Platelet Volume 11.2 fL (9.4-12.4); Monocytes # 0.9 K/mcL (0.0-1.3); Monocytes % 10.5 %; Neutrophils # 6.8 K/mcL (1.6-8.9); Platelet Count 165 K/mcL (140-400); Red Blood Count 2.91 M/mcL (4.19-5.50); Segmented Neutrophils % 77.1 %; White Blood Count 8.8 K/mcL (4.3-11.1)
[2021-02-04 06:59] LABS: Calcium 7.6 mg/dL (8.6-10.3); Potassium 4.7 mEq/L (3.5-5.1)
[2021-02-04] MEDS: Insulin LISPRO 300 UNITS/3 ML VIAL SUBQ SCH ×4 (07:27→21:27)
[2021-02-04] MEDS: *HR* Enoxaparin 80 MG/0.8 ML SYRINGE SQ SCH ×2 (07:31→21:43)
[2021-02-04] MEDS: Nystatin POWDER 30 GM BOTTLE TP SCH ×3 (07:32→21:25)
[2021-02-04] MEDS: Sennosides/Docusate Sodium TABLET PO SCH ×2 (07:33→21:25)
[2021-02-04] MEDS: Magic Mouthwash 10 ML UD Cup PO SCH ×3 (07:57→16:28)
[2021-02-04] MEDS: Chlorhexidine Rinse 15 ML MOUTHWASH MM SCH ×2 (07:57→21:40)
[2021-02-04] MEDS: Metoclopramide 10 MG/2 ML VIAL IVP PRN (16:28)
[2021-02-04] MEDS: Benzonatate 100 MG CAPSULE PO PRN (21:41)
[2021-02-05] MEDS: *HR* LORazepam 1 MG TABLET PO PRN ×2 (02:18→10:34)
[2021-02-05] MEDS: Ceftaroline Fosamil Acetate 400 MG in 0.9 % Sodium Chloride 50 ML IVPB SCH (02:18)
[2021-02-05 05:50] LABS: Basophils % 0.4 %; Eosinophils # 0.2 K/mcL (0.0-0.6); Eosinophils % 2.3 %; Hematocrit 25.6 % (37.5-50.1); Hemoglobin 7.8 g/dL (12.9-16.9); Immature Granulocytes % 0.9 % (0-4); Lymphocytes # 0.4 K/mcL (0.6-4.6); Mean Corpuscular HGB Conc 30.5 g/dL (31.6-35.5); Mean Corpuscular Hemoglobin 26.2 pg (28.0-33.3); Mean Corpuscular Volume 85.9 fL (83.0-100.0); Mean Platelet Volume 11.3 fL (9.4-12.4); Monocytes # 0.8 K/mcL (0.0-1.3); Monocytes % 8.8 %; Neutrophils # 7.1 K/mcL (1.6-8.9); Platelet Count 149 K/mcL (140-400); Red Blood Count 2.98 M/mcL (4.19-5.50); Segmented Neutrophils % 82.6 %; White Blood Count 8.6 K/mcL (4.3-11.1)
[2021-02-05 06:04] LABS: Calcium 7.6 mg/dL (8.6-10.3); Magnesium 1.8 mg/dL (1.6-2.6); Potassium 4.8 mEq/L (3.5-5.1)
[2021-02-05] MEDS: Insulin LISPRO 300 UNITS/3 ML VIAL SUBQ SCH ×4 (10:06→20:13)
[2021-02-05] MEDS: Magic Mouthwash 10 ML UD Cup PO SCH ×3 (10:07→17:09)
[2021-02-05] MEDS: Nystatin POWDER 30 GM BOTTLE TP SCH ×3 (10:08→20:12)
[2021-02-05] MEDS: Sennosides/Docusate Sodium TABLET PO SCH ×2 (10:08→20:13)
[2021-02-05] MEDS: Chlorhexidine Rinse 15 ML MOUTHWASH MM SCH ×2 (10:08→20:12)
[2021-02-05] MEDS: *HR* Enoxaparin 80 MG/0.8 ML SYRINGE SQ SCH (14:14)
[2021-02-05] MEDS: Ceftaroline Fosamil Acetate 300 MG in 0.9 % Sodium Chloride 50 ML IVPB SCH (16:57)
[2021-02-06] MEDS: Ceftaroline Fosamil Acetate 300 MG in 0.9 % Sodium Chloride 50 ML IVPB SCH (01:14)
[2021-02-06 06:22] LABS: Basophils % 0.3 %; Eosinophils # 0.3 K/mcL (0.0-0.6); Eosinophils % 4.5 %; Hematocrit 21.7 % (37.5-50.1); Hemoglobin 6.6 g/dL (12.9-16.9); Immature Granulocytes % 1.5 % (0-4); Lymphocytes # 0.9 K/mcL (0.6-4.6); Lymphocytes % 11.9 %; Mean Corpuscular HGB Conc 30.4 g/dL (31.6-35.5); Mean Corpuscular Hemoglobin 26.6 pg (28.0-33.3); Mean Corpuscular Volume 87.5 fL (83.0-100.0); Mean Platelet Volume 11.2 fL (9.4-12.4); Monocytes # 0.8 K/mcL (0.0-1.3); Monocytes % 10.7 %; Neutrophils # 5.1 K/mcL (1.6-8.9); Platelet Count 145 K/mcL (140-400); Red Blood Count 2.48 M/mcL (4.19-5.50); Red Cell Distribution Width 14.1 % (11.5-14.5); Segmented Neutrophils % 71.1 %; White Blood Count 7.2 K/mcL (4.3-11.1)
[2021-02-06 06:41] LABS: Calcium 6.8 mg/dL (8.6-10.3); Potassium 4.6 mEq/L (3.5-5.1)
[2021-02-06] MEDS: Magic Mouthwash 10 ML UD Cup PO SCH ×3 (07:50→16:07)
[2021-02-06] MEDS: Insulin LISPRO 300 UNITS/3 ML VIAL SUBQ SCH ×3 (07:50→16:07)
[2021-02-06] MEDS: Chlorhexidine Rinse 15 ML MOUTHWASH MM SCH ×2 (07:51→20:46)
[2021-02-06] MEDS: Sennosides/Docusate Sodium TABLET PO SCH ×2 (07:52→20:47)
[2021-02-06] MEDS: Nystatin POWDER 30 GM BOTTLE TP SCH ×3 (07:52→20:47)
[2021-02-06] MEDS: *HR* Dextrose 50 % in Water (Syg) 50 ML SYRINGE IVP PRN (08:00)
[2021-02-06] MEDS ORDERED: *HR* Enoxaparin 80 MG/0.8 ML SYRINGE SQ SCH (09:00)
[2021-02-06] MEDS: Ondansetron 4 MG/2 ML VIAL IVP PRN (09:02)
[2021-02-06 10:46] LABS: ANA IgG by ELISA NONE DETECTED (None Detected)
[2021-02-06] MEDS ORDERED: *HR* LORazepam 2 MG/ML VIAL IVP STA (10:59)
[2021-02-06] MEDS ORDERED: 0.9 % Sodium Chloride 1,000 ML ONE (11:33)
[2021-02-06] MEDS ORDERED: 0.9 % Sodium Chloride 250 ML IVC PRN (11:51)
[2021-02-06] MEDS: hydrOXYzine pamoate 25 MG CAPSULE PO PRN (11:54)
[2021-02-06] MEDS ORDERED: *HR* Heparin 5,000 UNIT/ML VIAL ONE ×2 (14:01→14:20)
[2021-02-06] MEDS: CEFTAROLINE FOSAMIL ACETATE IVPB SCH (16:05)
[2021-02-06] MEDS: SODIUM CHLORIDE 0.9% IVPB SCH (16:05)
[2021-02-06 17:47] LABS: Retculocyte # 0.06 M/mcL (0.05-0.10)
[2021-02-06 18:13] LABS: Hepatitis B Surface Antibody < 3.10 mIU/mL
[2021-02-06 18:24] LABS: Hepatitis B Surface Antigen Nonreactive (Nonreactive)
[2021-02-06] MEDS: *HR* Heparin 10,000 UNIT/10 ML VIAL IV PRN (18:38)
[2021-02-07] MEDS: Insulin LISPRO 300 UNITS/3 ML VIAL SUBQ SCH ×5 (00:19→20:21)
[2021-02-07] MEDS: SODIUM CHLORIDE 0.9% IVPB SCH ×2 (06:49→14:34)
[2021-02-07] MEDS: CEFTAROLINE FOSAMIL ACETATE IVPB SCH ×2 (06:49→14:34)
[2021-02-07] MEDS ORDERED: 0.9 % Sodium Chloride 250 ML IVC PRN (07:07)
[2021-02-07 07:59] LABS: Basophils % 0.3 %; Eosinophils # 0.5 K/mcL (0.0-0.6); Eosinophils % 6.3 %; Hematocrit 26.6 % (37.5-50.1); Immature Granulocytes % 0.9 % (0-4); Lymphocytes # 0.4 K/mcL (0.6-4.6); Lymphocytes % 4.8 %; Mean Corpuscular HGB Conc 30.8 g/dL (31.6-35.5); Mean Corpuscular Hemoglobin 26.7 pg (28.0-33.3); Mean Corpuscular Volume 86.6 fL (83.0-100.0); Mean Platelet Volume 11.6 fL (9.4-12.4); Monocytes # 0.7 K/mcL (0.0-1.3); Monocytes % 8.9 %; Neutrophils # 5.9 K/mcL (1.6-8.9); Platelet Count 129 K/mcL (140-400); Red Blood Count 3.07 M/mcL (4.19-5.50); Red Cell Distribution Width 14.1 % (11.5-14.5); Segmented Neutrophils % 78.8 %; White Blood Count 7.5 K/mcL (4.3-11.1)
[2021-02-07 08:03] LABS: Hemoglobin 8.2 g/dL (12.9-16.9)
[2021-02-07] MEDS: hydrOXYzine pamoate 25 MG CAPSULE PO PRN ×2 (08:03→20:26)
[2021-02-07] MEDS: Chlorhexidine Rinse 15 ML MOUTHWASH MM SCH ×2 (08:03→20:21)
[2021-02-07] MEDS: Sennosides/Docusate Sodium TABLET PO SCH ×2 (08:03→20:21)
[2021-02-07 08:12] LABS: Calcium 7.5 mg/dL (8.6-10.3); Potassium 4.4 mEq/L (3.5-5.1)
[2021-02-07] MEDS: Magic Mouthwash 10 ML UD Cup PO SCH ×3 (13:06→16:12)
[2021-02-07] MEDS: Nystatin POWDER 30 GM BOTTLE TP SCH ×3 (13:07→20:21)
[2021-02-07] MEDS: Ondansetron 4 MG/2 ML VIAL IVP PRN (20:26)
[2021-02-08] MEDS: CEFTAROLINE FOSAMIL ACETATE IVPB SCH ×2 (03:46→16:36)
[2021-02-08] MEDS: SODIUM CHLORIDE 0.9% IVPB SCH ×2 (03:46→16:36)
[2021-02-08 04:23] LABS: Basophils % 0.5 %; Eosinophils # 0.7 K/mcL (0.0-0.6); Eosinophils % 9.6 %; Hematocrit 26.2 % (37.5-50.1); Hemoglobin 8.3 g/dL (12.9-16.9); Lymphocytes # 0.5 K/mcL (0.6-4.6); Lymphocytes % 6.6 %; Mean Corpuscular HGB Conc 31.7 g/dL (31.6-35.5); Mean Corpuscular Hemoglobin 27.3 pg (28.0-33.3); Mean Corpuscular Volume 86.2 fL (83.0-100.0); Mean Platelet Volume 11.1 fL (9.4-12.4); Monocytes # 0.8 K/mcL (0.0-1.3); Monocytes % 10.3 %; Neutrophils # 5.3 K/mcL (1.6-8.9); Platelet Count 150 K/mcL (140-400); Red Blood Count 3.04 M/mcL (4.19-5.50); Red Cell Distribution Width 14.1 % (11.5-14.5); White Blood Count 7.3 K/mcL (4.3-11.1)
[2021-02-08 04:35] LABS: Calcium 7.6 mg/dL (8.6-10.3); Potassium 4.1 mEq/L (3.5-5.1)
[2021-02-08] MEDS: Ondansetron 4 MG/2 ML VIAL IVP PRN ×2 (06:20→14:47)
[2021-02-08] MEDS ORDERED: 0.9 % Sodium Chloride 250 ML IVC PRN (07:04)
[2021-02-08] MEDS: Chlorhexidine Rinse 15 ML MOUTHWASH MM SCH ×2 (07:38→20:09)
[2021-02-08] MEDS: hydrOXYzine pamoate 25 MG CAPSULE PO PRN ×2 (07:38→16:35)
[2021-02-08] MEDS: Magic Mouthwash 10 ML UD Cup PO SCH ×3 (07:39→16:03)
[2021-02-08] MEDS: Insulin LISPRO 300 UNITS/3 ML VIAL SUBQ SCH ×4 (07:39→23:37)
[2021-02-08] MEDS: Nystatin POWDER 30 GM BOTTLE TP SCH ×3 (07:39→20:02)
[2021-02-08] MEDS: Sennosides/Docusate Sodium TABLET PO SCH ×2 (07:40→20:02)
[2021-02-08] MEDS: Metoclopramide 10 MG/2 ML VIAL IVP PRN (08:08)
[2021-02-08 10:28] LABS: GBM IgG Multiplex Bead Assay 0 AU/mL (0-19); Glomerular Basement Memb IgG NEGATIVE (Negative)
[2021-02-08] MEDS: *HR* Heparin 10,000 UNIT/10 ML VIAL IV PRN (13:05)
[2021-02-08] MEDS ORDERED: *HR* Heparin 5,000 UNIT/ML VIAL IVP PRN ×2 (16:40)
[2021-02-08] MEDS ORDERED: *HR* Heparin 5,000 UNIT/ML VIAL IVP ONE (16:40)
[2021-02-08] MEDS: Heparin 25,000UNIT/250ML 1/2NS 25,000 UNIT/250 ML IV.SOLN IVC SCH (17:43)
[2021-02-08 19:01] LABS: ANCA IFA Titer <1:20 (<1:20)
[2021-02-08 20:46] LABS: Hemoglobin 8.7 g/dL (12.9-16.9); Mean Corpuscular HGB Conc 32.2 g/dL (31.6-35.5); Mean Corpuscular Hemoglobin 27.5 pg (28.0-33.3); Mean Corpuscular Volume 85.4 fL (83.0-100.0); Mean Platelet Volume 10.9 fL (9.4-12.4); Platelet Count 167 K/mcL (140-400); Red Blood Count 3.16 M/mcL (4.19-5.50); Red Cell Distribution Width 13.9 % (11.5-14.5); White Blood Count 8.5 K/mcL (4.3-11.1)
[2021-02-08 20:53] LABS: INR 1.7; Prothrombin Time 18.4 Seconds (9.4-12.1)
[2021-02-08 21:01] LABS: Albumin 2.6 g/dL (3.5-5.7); Albumin/Globulin Ratio 0.9 (1.1-2.2); Bilirubin,Direct 0.1 mg/dL (0.0-0.2); Bilirubin,Indirect 0.3 mg/dL (0.0-1.0); Bilirubin,Total 0.4 mg/dL (0.3-1.0); Total Protein 5.6 g/dL (6.4-8.9)
[2021-02-09 01:05] LABS: Basophils % 0.5 %; Eosinophils # 0.9 K/mcL (0.0-0.6); Eosinophils % 10.7 %; Hematocrit 26.8 % (37.5-50.1); Hemoglobin 8.4 g/dL (12.9-16.9); Immature Granulocytes % 1.3 % (0-4); Lymphocytes # 0.5 K/mcL (0.6-4.6); Mean Corpuscular HGB Conc 31.3 g/dL (31.6-35.5); Mean Corpuscular Hemoglobin 26.7 pg (28.0-33.3); Mean Corpuscular Volume 85.1 fL (83.0-100.0); Monocytes # 0.8 K/mcL (0.0-1.3); Monocytes % 9.6 %; Neutrophils # 5.7 K/mcL (1.6-8.9); Platelet Count 154 K/mcL (140-400); Red Blood Count 3.15 M/mcL (4.19-5.50); Red Cell Distribution Width 14.2 % (11.5-14.5); Segmented Neutrophils % 71.9 %; White Blood Count 7.9 K/mcL (4.3-11.1)
[2021-02-09 01:19] LABS: Calcium 7.5 mg/dL (8.6-10.3); Potassium 3.8 mEq/L (3.5-5.1)
[2021-02-09] MEDS: CEFTAROLINE FOSAMIL ACETATE IVPB SCH ×2 (05:11→15:54)
[2021-02-09] MEDS: SODIUM CHLORIDE 0.9% IVPB SCH ×2 (05:11→15:54)
[2021-02-09 06:57] LABS: ANCA IFA Pattern NONE DETECTED (None Detected); Serine Protease-3 Antibody 0 AU/mL (0-19)
[2021-02-09] MEDS: Insulin LISPRO 300 UNITS/3 ML VIAL SUBQ SCH ×4 (07:36→21:17)
[2021-02-09] MEDS: Chlorhexidine Rinse 15 ML MOUTHWASH MM SCH ×2 (07:52→21:13)
[2021-02-09] MEDS: Magic Mouthwash 10 ML UD Cup PO SCH ×3 (07:52→15:56)
[2021-02-09] MEDS: Sennosides/Docusate Sodium TABLET PO SCH ×2 (07:53→21:15)
[2021-02-09] MEDS: Nystatin POWDER 30 GM BOTTLE TP SCH ×3 (07:53→21:15)
[2021-02-09] MEDS: *HR* Promethazine 25 MG/ML VIAL IM PRN (12:40)
[2021-02-09] MEDS: Heparin 25,000UNIT/250ML 1/2NS 25,000 UNIT/250 ML IV.SOLN IVC SCH (15:30)
[2021-02-09] MEDS: Ceftaroline Fosamil Acetate 300 MG in 0.9 % Sodium Chloride 50 ML IVPB SCH (19:03)
[2021-02-09] MEDS: Ondansetron 4 MG/2 ML VIAL IVP PRN (21:10)
[2021-02-10] MEDS: SODIUM CHLORIDE 0.9% IVPB SCH ×2 (04:39→16:25)
[2021-02-10] MEDS: CEFTAROLINE FOSAMIL ACETATE IVPB SCH ×2 (04:39→16:25)
[2021-02-10] MEDS: Metoclopramide 10 MG/2 ML VIAL IVP PRN (04:44)
[2021-02-10] MEDS: Ondansetron 4 MG/2 ML VIAL IVP PRN ×2 (05:49→16:16)
[2021-02-10 06:25] LABS: Hematocrit 27.1 % (37.5-50.1); Hemoglobin 8.4 g/dL (12.9-16.9); Mean Corpuscular Hemoglobin 26.6 pg (28.0-33.3); Mean Corpuscular Volume 85.8 fL (83.0-100.0); Mean Platelet Volume 10.8 fL (9.4-12.4); Platelet Count 145 K/mcL (140-400); Red Blood Count 3.16 M/mcL (4.19-5.50); Red Cell Distribution Width 14.2 % (11.5-14.5); White Blood Count 7.8 K/mcL (4.3-11.1)
[2021-02-10 06:43] LABS: Magnesium 1.8 mg/dL (1.6-2.6); Potassium 3.7 mEq/L (3.5-5.1)
[2021-02-10] MEDS: Insulin LISPRO 300 UNITS/3 ML VIAL SUBQ SCH ×4 (07:45→20:32)
[2021-02-10] MEDS: Sennosides/Docusate Sodium TABLET PO SCH ×2 (07:48→20:32)
[2021-02-10] MEDS: Chlorhexidine Rinse 15 ML MOUTHWASH MM SCH ×2 (07:49→21:00)
[2021-02-10] MEDS: Nystatin POWDER 30 GM BOTTLE TP SCH ×3 (07:49→21:00)
[2021-02-10] MEDS: Magic Mouthwash 10 ML UD Cup PO SCH ×3 (07:49→16:23)
[2021-02-10] MEDS: Heparin 25,000UNIT/250ML 1/2NS 25,000 UNIT/250 ML IV.SOLN IVC SCH (08:41)
[2021-02-10] MEDS: hydrOXYzine pamoate 25 MG CAPSULE PO PRN (14:12)
[2021-02-11] MEDS: Heparin 25,000UNIT/250ML 1/2NS 25,000 UNIT/250 ML IV.SOLN IVC SCH ×2 (01:21→17:46)
[2021-02-11] MEDS: CEFTAROLINE FOSAMIL ACETATE IVPB SCH ×2 (04:59→20:30)
[2021-02-11] MEDS: SODIUM CHLORIDE 0.9% IVPB SCH ×2 (04:59→20:30)
[2021-02-11] MEDS: Ondansetron 4 MG/2 ML VIAL IVP PRN (04:59)
[2021-02-11 06:19] LABS: Hematocrit 26.2 % (37.5-50.1); Hemoglobin 8.3 g/dL (12.9-16.9); Mean Corpuscular HGB Conc 31.7 g/dL (31.6-35.5); Mean Corpuscular Hemoglobin 27.1 pg (28.0-33.3); Mean Corpuscular Volume 85.6 fL (83.0-100.0); Mean Platelet Volume 10.9 fL (9.4-12.4); Platelet Count 137 K/mcL (140-400); Red Blood Count 3.06 M/mcL (4.19-5.50); Red Cell Distribution Width 14.3 % (11.5-14.5); White Blood Count 7.9 K/mcL (4.3-11.1)
[2021-02-11 06:39] LABS: Potassium 3.7 mEq/L (3.5-5.1)
[2021-02-11] MEDS: Magic Mouthwash 10 ML UD Cup PO SCH ×3 (07:42→15:54)
[2021-02-11] MEDS: Insulin LISPRO 300 UNITS/3 ML VIAL SUBQ SCH ×4 (07:42→20:30)
[2021-02-11] MEDS: Chlorhexidine Rinse 15 ML MOUTHWASH MM SCH ×2 (08:12→20:28)
[2021-02-11] MEDS: Sennosides/Docusate Sodium TABLET PO SCH ×2 (08:13→20:31)
[2021-02-11] MEDS: Nystatin POWDER 30 GM BOTTLE TP SCH ×3 (08:13→20:31)
[2021-02-11] MEDS ORDERED: 0.9 % Sodium Chloride 250 ML IVC PRN (08:55)
[2021-02-11] MEDS ORDERED: *HR* Heparin 10,000 UNIT/10 ML VIAL IV PRN (08:55)
[2021-02-11] MEDS ORDERED: 0.9 % Sodium Chloride 1,000 ML PRIME SCH (09:00)
[2021-02-11] MEDS: Metoclopramide 10 MG/2 ML VIAL IVP PRN (12:48)
[2021-02-11] MEDS: Melatonin 3 MG TABLET PO SCH (20:28)
[2021-02-11] MEDS: hydrOXYzine pamoate 25 MG CAPSULE PO PRN (20:28)
[2021-02-12] MEDS: CEFTAROLINE FOSAMIL ACETATE IVPB SCH ×2 (05:12→16:40)
[2021-02-12] MEDS: SODIUM CHLORIDE 0.9% IVPB SCH ×2 (05:12→16:40)
[2021-02-12 06:23] LABS: Basophils % 0.4 %; Eosinophils # 0.7 K/mcL (0.0-0.6); Eosinophils % 8.8 %; Hematocrit 25.1 % (37.5-50.1); Hemoglobin 8.2 g/dL (12.9-16.9); Immature Granulocytes % 0.8 % (0-4); Lymphocytes # 0.7 K/mcL (0.6-4.6); Lymphocytes % 8.1 %; Mean Corpuscular HGB Conc 32.7 g/dL (31.6-35.5); Mean Corpuscular Hemoglobin 27.7 pg (28.0-33.3); Mean Corpuscular Volume 84.8 fL (83.0-100.0); Mean Platelet Volume 11.5 fL (9.4-12.4); Monocytes # 0.8 K/mcL (0.0-1.3); Monocytes % 9.5 %; Neutrophils # 5.8 K/mcL (1.6-8.9); Platelet Count 130 K/mcL (140-400); Red Blood Count 2.96 M/mcL (4.19-5.50); Red Cell Distribution Width 14.4 % (11.5-14.5); Segmented Neutrophils % 72.4 %
[2021-02-12 06:35] LABS: Calcium 7.8 mg/dL (8.6-10.3); Magnesium 1.6 mg/dL (1.6-2.6); Phosphorous 3.3 mg/dL (2.7-4.5); Potassium 3.6 mEq/L (3.5-5.1)
[2021-02-12] MEDS: Insulin LISPRO 300 UNITS/3 ML VIAL SUBQ SCH ×4 (07:21→21:42)
[2021-02-12] MEDS: Magic Mouthwash 10 ML UD Cup PO SCH ×3 (07:21→16:38)
[2021-02-12] MEDS: Nystatin POWDER 30 GM BOTTLE TP SCH ×3 (08:06→20:04)
[2021-02-12] MEDS: Sennosides/Docusate Sodium TABLET PO SCH ×2 (08:06→20:05)
[2021-02-12] MEDS: Chlorhexidine Rinse 15 ML MOUTHWASH MM SCH ×2 (08:13→20:04)
[2021-02-12] MEDS: Metoclopramide 10 MG/2 ML VIAL IVP PRN (08:18)
[2021-02-12] MEDS ORDERED: Heparin 1,000 UNITS/500 mL 500 ML ONE (08:44)
[2021-02-12] MEDS ORDERED: Lidocaine/EPI 1:100k 1% 50 ML VIAL ONE (08:44)
[2021-02-12] MEDS ORDERED: *HR* Midazolam HCl 2 MG/2 ML VIAL IVP ONE (08:48)
[2021-02-12] MEDS ORDERED: *HR* FentaNYL (PF) 100 MCG/2 ML VIAL IVP ONE (08:48)
[2021-02-12] MEDS ORDERED: 0.9 % Sodium Chloride 500 ML ONE (08:56)
[2021-02-12] MEDS ORDERED: *HR* Heparin 5,000 UNIT/ML VIAL ONE (09:15)
[2021-02-12] MEDS: Apixaban 5 MG TABLET PO SCH (20:04)
[2021-02-12] MEDS: Melatonin 3 MG TABLET PO SCH (20:04)
[2021-02-13] MEDS: SODIUM CHLORIDE 0.9% IVPB SCH ×2 (05:04→16:32)
[2021-02-13] MEDS: CEFTAROLINE FOSAMIL ACETATE IVPB SCH ×2 (05:04→16:32)
[2021-02-13] MEDS: Metoclopramide 10 MG/2 ML VIAL IVP PRN ×2 (06:19→18:31)
[2021-02-13] MEDS: Magic Mouthwash 10 ML UD Cup PO SCH ×3 (07:48→16:32)
[2021-02-13] MEDS: Insulin LISPRO 300 UNITS/3 ML VIAL SUBQ SCH ×4 (07:48→19:28)
[2021-02-13] MEDS: Apixaban 5 MG TABLET PO SCH ×2 (07:52→19:27)
[2021-02-13] MEDS: Sennosides/Docusate Sodium TABLET PO SCH ×2 (07:52→19:28)
[2021-02-13] MEDS: Nystatin POWDER 30 GM BOTTLE TP SCH ×3 (07:52→19:28)
[2021-02-13] MEDS: Chlorhexidine Rinse 15 ML MOUTHWASH MM SCH ×2 (07:52→19:27)
[2021-02-13] MEDS ORDERED: *HR* Heparin 10,000 UNIT/10 ML VIAL IV PRN (08:21)
[2021-02-13] MEDS ORDERED: 0.9 % Sodium Chloride 250 ML IVC PRN (08:21)
[2021-02-13 10:24] LABS: Red Cell Distribution Width 14.6 % (11.5-14.5)
[2021-02-13 10:26] LABS: Basophils % 0.6 %; Eosinophils # 0.4 K/mcL (0.0-0.6); Hematocrit 27.9 % (37.5-50.1); Hemoglobin 8.7 g/dL (12.9-16.9); Immature Granulocytes % 1.3 % (0-4); Immature Platelets 4.7 % (1.1-6.1); Lymphocytes # 0.4 K/mcL (0.6-4.6); Lymphocytes % 5.3 %; Mean Corpuscular HGB Conc 31.2 g/dL (31.6-35.5); Mean Corpuscular Hemoglobin 26.4 pg (28.0-33.3); Mean Corpuscular Volume 84.8 fL (83.0-100.0); Mean Platelet Volume 10.5 fL (9.4-12.4); Monocytes # 0.8 K/mcL (0.0-1.3); Monocytes % 10.8 %; Neutrophils # 5.4 K/mcL (1.6-8.9); Platelet Count 131 K/mcL (140-400); Red Blood Count 3.29 M/mcL (4.19-5.50); White Blood Count 7.1 K/mcL (4.3-11.1)
[2021-02-13 10:28] LABS: Platelet Estimate Slight Decrease (Normal)
[2021-02-13 10:45] LABS: Calcium 8.3 mg/dL (8.6-10.3); Potassium 3.5 mEq/L (3.5-5.1)
[2021-02-13] MEDS: Melatonin 3 MG TABLET PO SCH (19:27)
[2021-02-14] MEDS: CEFTAROLINE FOSAMIL ACETATE IVPB SCH (05:16)
[2021-02-14] MEDS: SODIUM CHLORIDE 0.9% IVPB SCH (05:16)
[2021-02-14 05:38] LABS: Mean Corpuscular Volume 85.2 fL (83.0-100.0); Red Cell Distribution Width 14.8 % (11.5-14.5)
[2021-02-14 05:39] LABS: Hemoglobin 8.5 g/dL (12.9-16.9); Immature Platelets 5.8 % (1.1-6.1); Mean Corpuscular HGB Conc 31.5 g/dL (31.6-35.5); Mean Corpuscular Hemoglobin 26.8 pg (28.0-33.3); Mean Platelet Volume 10.7 fL (9.4-12.4); Red Blood Count 3.17 M/mcL (4.19-5.50); White Blood Count 7.3 K/mcL (4.3-11.1)
[2021-02-14 05:57] LABS: Calcium 8.3 mg/dL (8.6-10.3); Potassium 3.7 mEq/L (3.5-5.1)
[2021-02-14] MEDS: Nystatin POWDER 30 GM BOTTLE TP SCH ×3 (10:05→20:39)
[2021-02-14] MEDS: Magic Mouthwash 10 ML UD Cup PO SCH ×3 (10:05→16:22)
[2021-02-14] MEDS: Insulin LISPRO 300 UNITS/3 ML VIAL SUBQ SCH ×4 (10:05→20:50)
[2021-02-14] MEDS: Sennosides/Docusate Sodium TABLET PO SCH ×2 (10:06→20:39)
[2021-02-14] MEDS: Chlorhexidine Rinse 15 ML MOUTHWASH MM SCH ×2 (10:08→20:39)
[2021-02-14] MEDS: Apixaban 5 MG TABLET PO SCH ×2 (10:08→20:40)
[2021-02-14] MEDS: Melatonin 3 MG TABLET PO SCH (20:39)
[2021-02-15 05:50] LABS: Hemoglobin 8.6 g/dL (12.9-16.9); Immature Platelets 5.4 % (1.1-6.1); Mean Corpuscular HGB Conc 30.7 g/dL (31.6-35.5); Mean Corpuscular Hemoglobin 26.2 pg (28.0-33.3); Mean Corpuscular Volume 85.4 fL (83.0-100.0); Mean Platelet Volume 11.3 fL (9.4-12.4); Red Blood Count 3.28 M/mcL (4.19-5.50); White Blood Count 7.4 K/mcL (4.3-11.1)
[2021-02-15 06:07] LABS: Calcium 8.5 mg/dL (8.6-10.3); Potassium 3.3 mEq/L (3.5-5.1)
[2021-02-15] MEDS: Nystatin POWDER 30 GM BOTTLE TP SCH ×3 (07:58→22:37)
[2021-02-15] MEDS: Magic Mouthwash 10 ML UD Cup PO SCH ×2 (07:58→11:53)
[2021-02-15] MEDS: Insulin LISPRO 300 UNITS/3 ML VIAL SUBQ SCH ×4 (07:58→22:37)
[2021-02-15] MEDS: Sennosides/Docusate Sodium TABLET PO SCH ×2 (07:59→22:38)
[2021-02-15] MEDS ORDERED: *HR* Heparin 10,000 UNIT/10 ML VIAL IV PRN (08:03)
[2021-02-15] MEDS ORDERED: 0.9 % Sodium Chloride 250 ML IVC PRN (08:03)
[2021-02-15] MEDS: Apixaban 5 MG TABLET PO SCH ×2 (08:16→22:37)
[2021-02-15] MEDS: Chlorhexidine Rinse 15 ML MOUTHWASH MM SCH ×2 (08:17→22:36)
[2021-02-15] MEDS: Metoclopramide 10 MG/2 ML VIAL IVP PRN (08:26)
[2021-02-15] MEDS: hydrOXYzine pamoate 25 MG CAPSULE PO PRN (22:37)
[2021-02-15] MEDS: Melatonin 3 MG TABLET PO SCH (22:37)
[2021-02-16 05:44] LABS: Hematocrit 28.7 % (37.5-50.1); Hemoglobin 8.8 g/dL (12.9-16.9); Mean Corpuscular HGB Conc 30.7 g/dL (31.6-35.5); Mean Corpuscular Hemoglobin 26.2 pg (28.0-33.3); Mean Corpuscular Volume 85.4 fL (83.0-100.0); Platelet Count 144 K/mcL (140-400); Red Blood Count 3.36 M/mcL (4.19-5.50); Red Cell Distribution Width 15.3 % (11.5-14.5); White Blood Count 8.1 K/mcL (4.3-11.1)
[2021-02-16 05:52] LABS: Calcium 8.2 mg/dL (8.6-10.3); Potassium 3.3 mEq/L (3.5-5.1)
[2021-02-16] MEDS: Metoclopramide 10 MG/2 ML VIAL IVP PRN (06:19)
[2021-02-16] MEDS: Insulin LISPRO 300 UNITS/3 ML VIAL SUBQ SCH ×4 (08:02→19:44)
[2021-02-16] MEDS: Chlorhexidine Rinse 15 ML MOUTHWASH MM SCH ×2 (08:02→19:47)
[2021-02-16] MEDS: Apixaban 5 MG TABLET PO SCH ×2 (08:03→19:47)
[2021-02-16] MEDS: Sennosides/Docusate Sodium TABLET PO SCH ×2 (08:03→19:44)
[2021-02-16] MEDS: Nystatin POWDER 30 GM BOTTLE TP SCH ×3 (08:09→19:44)
[2021-02-16] MEDS: Ondansetron 4 MG/2 ML VIAL IVP PRN ×2 (08:34→17:16)
[2021-02-16] MEDS: Melatonin 3 MG TABLET PO SCH (19:47)
[2021-02-16] MEDS: hydrOXYzine pamoate 25 MG CAPSULE PO PRN (23:19)
[2021-02-17 04:03] LABS: Hematocrit 28.4 % (37.5-50.1); Mean Corpuscular HGB Conc 31.7 g/dL (31.6-35.5); Mean Corpuscular Hemoglobin 26.8 pg (28.0-33.3); Mean Corpuscular Volume 84.5 fL (83.0-100.0); Mean Platelet Volume 10.9 fL (9.4-12.4); Platelet Count 149 K/mcL (140-400); Red Blood Count 3.36 M/mcL (4.19-5.50); Red Cell Distribution Width 15.5 % (11.5-14.5); White Blood Count 8.8 K/mcL (4.3-11.1)
[2021-02-17 04:18] LABS: Calcium 8.2 mg/dL (8.6-10.3); Potassium 3.7 mEq/L (3.5-5.1)
[2021-02-17] MEDS: Nystatin POWDER 30 GM BOTTLE TP SCH ×3 (10:01→20:26)
[2021-02-17] MEDS: Insulin LISPRO 300 UNITS/3 ML VIAL SUBQ SCH ×4 (10:01→20:25)
[2021-02-17] MEDS: Sennosides/Docusate Sodium TABLET PO SCH ×2 (10:01→20:26)
[2021-02-17] MEDS: Apixaban 5 MG TABLET PO SCH ×2 (10:04→20:16)
[2021-02-17] MEDS: Chlorhexidine Rinse 15 ML MOUTHWASH MM SCH ×2 (10:13→20:16)
[2021-02-17] MEDS: Ondansetron 4 MG/2 ML VIAL IVP PRN (17:43)
[2021-02-17] MEDS: hydrOXYzine pamoate 25 MG CAPSULE PO PRN (20:19)
[2021-02-17] MEDS: Melatonin 3 MG TABLET PO SCH (20:26)
[2021-02-17] MEDS: Metoclopramide 10 MG/2 ML VIAL IVP PRN (21:27)
[2021-02-18 06:40] LABS: Hematocrit 26.3 % (37.5-50.1); Hemoglobin 8.7 g/dL (12.9-16.9); Mean Corpuscular HGB Conc 33.1 g/dL (31.6-35.5); Mean Corpuscular Hemoglobin 27.7 pg (28.0-33.3); Mean Corpuscular Volume 83.8 fL (83.0-100.0); Mean Platelet Volume 10.7 fL (9.4-12.4); Platelet Count 152 K/mcL (140-400); Red Blood Count 3.14 M/mcL (4.19-5.50); Red Cell Distribution Width 15.7 % (11.5-14.5); White Blood Count 8.1 K/mcL (4.3-11.1)
[2021-02-18 06:57] LABS: Calcium 8.3 mg/dL (8.6-10.3); Potassium 3.6 mEq/L (3.5-5.1)
[2021-02-18] MEDS ORDERED: *HR* Heparin 10,000 UNIT/10 ML VIAL IV PRN (07:45)
[2021-02-18] MEDS ORDERED: 0.9 % Sodium Chloride 250 ML IVC PRN (07:45)
[2021-02-18] MEDS: Chlorhexidine Rinse 15 ML MOUTHWASH MM SCH ×2 (08:42→19:50)
[2021-02-18] MEDS: Apixaban 5 MG TABLET PO SCH ×2 (08:42→19:50)
[2021-02-18] MEDS: Insulin LISPRO 300 UNITS/3 ML VIAL SUBQ SCH ×4 (08:45→21:00)
[2021-02-18] MEDS: Nystatin POWDER 30 GM BOTTLE TP SCH ×3 (08:46→19:51)
[2021-02-18] MEDS: Sennosides/Docusate Sodium TABLET PO SCH ×2 (08:46→19:51)
[2021-02-18] MEDS: Melatonin 3 MG TABLET PO SCH (21:00)
[2021-02-19 05:13] LABS: Hematocrit 27.6 % (37.5-50.1); Hemoglobin 8.7 g/dL (12.9-16.9); Mean Corpuscular HGB Conc 31.5 g/dL (31.6-35.5); Mean Corpuscular Hemoglobin 26.4 pg (28.0-33.3); Mean Corpuscular Volume 83.9 fL (83.0-100.0); Mean Platelet Volume 11.2 fL (9.4-12.4); Platelet Count 153 K/mcL (140-400); Red Blood Count 3.29 M/mcL (4.19-5.50); Red Cell Distribution Width 15.8 % (11.5-14.5); White Blood Count 8.1 K/mcL (4.3-11.1)
[2021-02-19 05:35] LABS: Calcium 5.3 mg/dL (8.6-10.3); Potassium 2.6 mEq/L (3.5-5.1)
[2021-02-19] MEDS ORDERED: Calcium Gluconate 1gm/50mL 1 GM/50 ML BAG IVPB ONE (05:42)
[2021-02-19] MEDS ORDERED: Potassium Chloride Elixir 20 MEQ/15 ML UDC PO ONE (05:43)
[2021-02-19] MEDS: Ondansetron 4 MG/2 ML VIAL IVP PRN (06:01)
[2021-02-19] MEDS: Insulin LISPRO 300 UNITS/3 ML VIAL SUBQ SCH ×4 (08:35→21:25)
[2021-02-19] MEDS: Apixaban 5 MG TABLET PO SCH ×2 (08:38→21:25)
[2021-02-19] MEDS: Chlorhexidine Rinse 15 ML MOUTHWASH MM SCH ×2 (08:38→21:25)
[2021-02-19] MEDS: Nystatin POWDER 30 GM BOTTLE TP SCH ×3 (08:38→21:25)
[2021-02-19] MEDS: Sennosides/Docusate Sodium TABLET PO SCH ×2 (08:39→21:25)
[2021-02-19] MEDS: Metoclopramide 10 MG/2 ML VIAL IVP PRN (08:51)
[2021-02-19 16:25] LABS: Bacteria,Urine Few per hpf (None-Few); Bilirubin,Urine Negative (Negative); Blood,Urine Large (Negative); Budding Yeast,Urine Moderate per hpf (None Seen); Clarity,Urine Turbid (Clear); Glucose,Urine (UA) 150 mg/dL (Normal); Ketones,Urine Negative (Negative); Leukocyte Esterase,Urine Negative (Negative); Nitrite,Urine Negative (Negative); PH,Urine 5.5 pH Units (5.0-8.0); Protein,Urine 100 mg/dL (Neg-Trace); RBC,Urine TNTC per hpf (0-3); Squamous Epithelial Cell,Urine Few per hpf (None-Few); Urobilinogen,Urine Normal (Normal)
[2021-02-19 16:37] LABS: Color,Urine Dark-Yellow (Yellow)
[2021-02-19 16:58] LABS: Calcium 8.3 mg/dL (8.6-10.3); Potassium 4.6 mEq/L (3.5-5.1)
[2021-02-19 17:40] LABS: Creatinine,Urine 72 mg/dL; Microalbumin,Urine > 1350 mg/L; Protein/Creatinine Ratio,Urine 4.56 mg/mg (0.00-0.20)
[2021-02-19] MEDS: Melatonin 3 MG TABLET PO SCH (21:25)
[2021-02-20] MEDS: hydrOXYzine pamoate 25 MG CAPSULE PO PRN (05:07)
[2021-02-20] MEDS: Ondansetron 4 MG/2 ML VIAL IVP PRN (05:07)
[2021-02-20 05:44] LABS: Hematocrit 26.4 % (37.5-50.1); Hemoglobin 8.5 g/dL (12.9-16.9); Mean Corpuscular HGB Conc 32.2 g/dL (31.6-35.5); Mean Corpuscular Hemoglobin 27.3 pg (28.0-33.3); Mean Corpuscular Volume 84.9 fL (83.0-100.0); Mean Platelet Volume 11.2 fL (9.4-12.4); Platelet Count 155 K/mcL (140-400); Red Blood Count 3.11 M/mcL (4.19-5.50); Red Cell Distribution Width 15.9 % (11.5-14.5); White Blood Count 7.1 K/mcL (4.3-11.1)
[2021-02-20 06:10] LABS: Calcium 5.7 mg/dL (8.6-10.3); Magnesium 1.4 mg/dL (1.6-2.6); Potassium 3.2 mEq/L (3.5-5.1)
[2021-02-20] MEDS: Sennosides/Docusate Sodium TABLET PO SCH ×3 (09:56→22:37)
[2021-02-20] MEDS: Nystatin POWDER 30 GM BOTTLE TP SCH ×3 (09:56→22:37)
[2021-02-20] MEDS: Apixaban 5 MG TABLET PO SCH ×2 (09:59→21:11)
[2021-02-20] MEDS: Magnesium Oxide 400 MG TABLET PO SCH (10:00)
[2021-02-20] MEDS: Calcium Gluconate 1gm/50mL 1 GM/50 ML BAG IVPB SCH ×3 (10:00→12:02)
[2021-02-20] MEDS: Chlorhexidine Rinse 15 ML MOUTHWASH MM SCH ×2 (10:00→21:11)
[2021-02-20] MEDS: Insulin LISPRO 300 UNITS/3 ML VIAL SUBQ SCH ×3 (12:02→21:00)
[2021-02-20 17:26] LABS: Calcium 8.8 mg/dL (8.6-10.3); Potassium 4.8 mEq/L (3.5-5.1)
[2021-02-20] MEDS: Melatonin 3 MG TABLET PO SCH (21:11)
[2021-02-21 02:49] LABS: Basophils % 0.4 %; Eosinophils # 0.6 K/mcL (0.0-0.6); Eosinophils % 6.9 %; Hematocrit 27.1 % (37.5-50.1); Hemoglobin 8.5 g/dL (12.9-16.9); Immature Granulocytes % 0.4 % (0-4); Lymphocytes % 12.3 %; Mean Corpuscular HGB Conc 31.4 g/dL (31.6-35.5); Mean Corpuscular Hemoglobin 26.5 pg (28.0-33.3); Mean Corpuscular Volume 84.4 fL (83.0-100.0); Mean Platelet Volume 10.9 fL (9.4-12.4); Monocytes # 0.9 K/mcL (0.0-1.3); Monocytes % 11.6 %; Neutrophils # 5.4 K/mcL (1.6-8.9); Platelet Count 149 K/mcL (140-400); Red Blood Count 3.21 M/mcL (4.19-5.50); Red Cell Distribution Width 15.8 % (11.5-14.5); Segmented Neutrophils % 68.4 %
[2021-02-21 03:09] LABS: Calcium 8.6 mg/dL (8.6-10.3); Potassium 4.6 mEq/L (3.5-5.1)
[2021-02-21] MEDS: Ondansetron 4 MG/2 ML VIAL IVP PRN ×2 (05:15→19:57)
[2021-02-21] MEDS ORDERED: *HR* Heparin 10,000 UNIT/10 ML VIAL IV PRN (07:41)
[2021-02-21] MEDS ORDERED: 0.9 % Sodium Chloride 250 ML IVC PRN (07:41)
[2021-02-21] MEDS ORDERED: 0.9 % Sodium Chloride 1,000 ML PRIME SCH (07:45)
[2021-02-21] MEDS: Insulin LISPRO 300 UNITS/3 ML VIAL SUBQ SCH ×4 (08:16→19:48)
[2021-02-21] MEDS: Nystatin POWDER 30 GM BOTTLE TP SCH ×3 (08:17→19:48)
[2021-02-21] MEDS: Sennosides/Docusate Sodium TABLET PO SCH ×2 (08:17→19:48)
[2021-02-21] MEDS: Apixaban 5 MG TABLET PO SCH ×2 (09:43→19:57)
[2021-02-21] MEDS: Chlorhexidine Rinse 15 ML MOUTHWASH MM SCH ×2 (09:48→19:57)
[2021-02-21] MEDS: Magnesium Oxide 400 MG TABLET PO SCH (11:49)
[2021-02-21] MEDS: hydrOXYzine pamoate 25 MG CAPSULE PO PRN (19:57)
[2021-02-21] MEDS: Melatonin 3 MG TABLET PO SCH (19:57)
[2021-02-22 02:01] LABS: Hemoglobin 8.4 g/dL (12.9-16.9); Mean Corpuscular HGB Conc 32.3 g/dL (31.6-35.5); Mean Corpuscular Hemoglobin 27.4 pg (28.0-33.3); Mean Corpuscular Volume 84.7 fL (83.0-100.0); Mean Platelet Volume 11.1 fL (9.4-12.4); Platelet Count 149 K/mcL (140-400); Red Blood Count 3.07 M/mcL (4.19-5.50); Red Cell Distribution Width 15.9 % (11.5-14.5); White Blood Count 7.2 K/mcL (4.3-11.1)
[2021-02-22 02:28] LABS: Potassium 4.5 mEq/L (3.5-5.1)
[2021-02-22] MEDS: Metoclopramide 10 MG/2 ML VIAL IVP PRN (02:58)
[2021-02-22] MEDS: Insulin LISPRO 300 UNITS/3 ML VIAL SUBQ SCH ×4 (10:13→19:43)
[2021-02-22] MEDS: Nystatin POWDER 30 GM BOTTLE TP SCH ×3 (10:17→21:15)
[2021-02-22] MEDS: Sennosides/Docusate Sodium TABLET PO SCH ×2 (10:17→21:15)
[2021-02-22] MEDS: Chlorhexidine Rinse 15 ML MOUTHWASH MM SCH ×2 (10:19→21:20)
[2021-02-22] MEDS: Apixaban 5 MG TABLET PO SCH ×2 (10:19→21:20)
[2021-02-22] MEDS: Magnesium Oxide 400 MG TABLET PO SCH (10:19)
[2021-02-22] MEDS: Melatonin 3 MG TABLET PO SCH (21:20)
[2021-02-23] MEDS ORDERED: 0.9 % Sodium Chloride 250 ML IVC PRN (07:53)
[2021-02-23] MEDS: Insulin LISPRO 300 UNITS/3 ML VIAL SUBQ SCH ×2 (07:54→11:22)
[2021-02-23 07:55] VITALS: BP 154/78; PULSE 90; TEMP 97.9
[2021-02-23] MEDS: Apixaban 5 MG TABLET PO SCH (07:55)
[2021-02-23] MEDS: Magnesium Oxide 400 MG TABLET PO SCH (07:56)
[2021-02-23] MEDS: Chlorhexidine Rinse 15 ML MOUTHWASH MM SCH (07:56)
[2021-02-23] MEDS: Nystatin POWDER 30 GM BOTTLE TP SCH ×2 (07:56→14:51)
[2021-02-23] MEDS: Sennosides/Docusate Sodium TABLET PO SCH (07:56)
[2021-02-23] MEDS ORDERED: 0.9 % Sodium Chloride 1,000 ML PRIME SCH (08:00)
[2021-02-23] MEDS: Ondansetron 4 MG/2 ML VIAL IVP PRN (10:06)
[2021-02-23 12:46] VITALS: O2SAT 93
== END 2021-02-23 18:10 | disposition home or self-care (01) | DRG 137 ==
LOC: 2NNU 11:32 → EMEROOARM 11:32 → 2NNU 14:47 → SUATTDRO 14:54 → ICNU 12-28 15:36 → 2NNU 01-02 14:55 → 3BNU 01-10 10:06 → 3NENU 01-11 18:02 → 2NNU 01-20 13:08 → 3NENU 01-29 10:06 → 2NNU 02-06 20:01 → 2NENU 02-08 15:22
PROVIDERS: ADMIT Internal Medicine; ATTEND Internal Medicine
PROC: IRPERMA (2021-02-12 12:00)